=== PATIENT | female | born 1975 | race Caucasian/White ===

== ENCOUNTER → 2020-05-12 18:59 | Outpatient (BNVA) | payer MEDICAID, SELFPAY | PROVIDERS: Family Provider Family Medicine; PCP Family Medicine; Visit Provider Nurse Practitioner Family | DX: R39.9 Unspecified symptoms and signs involving the genitourinary system (principal) | CPT/HCPCS: 81000; 87086 ==

== ENCOUNTER 2020-05-22 08:16 | Outpatient (CLI) | payer MEDICAID, SELFPAY ==
--- NOTE | 2020-05-22 08:24 | CT_ITS ---
WS: [id number] CT pelvis TECHNIQUE: Contrast-enhanced CT of the pelvis with coronal and sagittal reformatted images. CLINICAL INFORMATION: pelvic mass COMPARISON: CT February 16, 2020 DLP: 686.[address] scans at [facility] use at least one of these dose optimization techniques: automat ed exposure control; mA and/or kV adjustment per patient size (includes targeted exams where dose is matched to clinical indication); or iterative reconstruction. FINDINGS: Peripheral enhancing right ovarian low-attenuation lesion measuring approximately 3.8 x 4.4 CM. This is similar in appearance to February 16, 2020. Adjacent serpiginous low-attenuation structure suspicious for hydrosalpinx or loculated fluid. This can be further evaluated with pelvic ultrasound. No inguinal lymphadenopathy. No pelvic lymphadenopathy. Appendix visualized right lower quadrant is n ormal in appearance. Normal visualized sigmoid colon. CT/CT pelvis w con* [id number] IMPRESSION: 1. Peripheral enhancing low-attenuation right ovarian cystic lesion measuring 4.4 x 3.8 cm. Recommend further evaluation with ultrasound. 2. Serpiginous adjacent low-attenuation structure suspicious for hydrosalpinx or loculated fluid. Pelvic ultrasound would be helpful in further evaluation. 3. No pelvic or inguinal lymphadenopathy. No other significant findings.
[2020-05-22] MEDS: iohexol 300 mg/mL 50 mL Btl PO (08:29)
[2020-05-22] MEDS: iohexol 300 mg/mL 100 mL Btl IV (10:02)
== END 2020-05-22 08:17 | disposition home or self-care (01) ==
LOC: RADWPI 08:22
PROVIDERS: Family Provider Family Medicine; PCP Family Medicine; Visit Provider Family Medicine
DX: R19.00 Intra-abdominal and pelvic swelling, mass and lump, unspecified site (principal); N83.9 Noninflammatory disorder of ovary, fallopian tube and broad ligament, unspecified
CPT/HCPCS: 72193; 81000; Q9967

== ENCOUNTER 2020-05-23 14:49 | Outpatient (CLI) | payer MEDICAID, SELFPAY ==
--- NOTE | 2020-05-23 15:00 | US_ITS ---
WS: [id number] TRANSVAGINAL PELVIC ULTRASOUND HISTORY: Right tubo-ovarian mass COMPARISON: 05/22/2020 Prior hysterectomy. Right ovary: 4.3 cm x 4.1 cm x 4.2 cm. In the central pelvis and extending to the RIGHT of midline is a complex cystic mass with low-level echoes. Components of this structure are tubular and suggestive of a hydrosalpinx. There is a more solid component which may be the ovary with low-level echoes. Wit hin the periphery of this more solid mass is what appears to be ovarian tissue with normal vascularit y. Left ovary: 2.4 cm x 1.6 cm x 1.6 cm. Small caliber. No abnormality. US/US transvaginal [id number] IMPRESSION: 1. Dilated tubular structure in the midline and to the RIGHT adnexa. Favor com plex hydrosalpinx. Complex cystic mass associated with the RIGHT ovary may be h emorrhagic cyst with partial involution or endometrioma. 2. Status post partial hysterectomy.
== END 2020-05-23 14:50 | disposition home or self-care (01) ==
LOC: RAD 14:53
PROVIDERS: PCP Family Medicine; Visit Provider Obstetrics & Gynecology
DX: N83.8 Other noninflammatory disorders of ovary, fallopian tube and broad ligament (principal)
CPT/HCPCS: 76830

== ENCOUNTER → 2020-06-16 09:40 | Outpatient (BNVA) | payer MEDICAID, SELFPAY | PROVIDERS: PCP Family Medicine; Visit Provider Obstetrics & Gynecology | DX: Z11.59 Encounter for screening for other viral diseases (principal); N70.11 Chronic salpingitis; N83.201 Unspecified ovarian cyst, right side | CPT/HCPCS: 87635 ==

== ENCOUNTER 2020-06-21 13:06 | Observation (INO) | payer MEDICAID, SELFPAY ==
[2020-06-19 11:00] VITALS: BMI 31.7
--- NOTE | 2020-06-19 11:19 | ANES.PREANE2 ---
Pre-Anesthetic Assessment Pre-Anesthetic Assessment: Height/Weight: Height 1.63 m Weight 83.915 kg Preop Diagnosis: Ovarian cyst Proposed Procedure: Operation Date: 06/21/20 09:05 Proposed Procedures p Laparoscopic Right Ovarian Cystectomy 70252 N83.201 N70.11(Right) - Santo Howell MD s possible Laparoscopic Salpingectomy(Right) - Santo Howell MD Familial anesthetic complications: HR in 40 after her gastric sleeve Was Beta Mari taken within 24 hours: N/A Social: Social History: No alcohol and No tobacco Exam: Pre-Anes Outpt Exam: alert, oriented x 3, clear to auscultation bilaterally and regular rate & rhythm Airway: Cervical ROM: WNL MP: 2 Dentition: Full Anesthetic Plan: ASA status: 1 Anesthesia: General Risk of > 500 ml blood loss (7ml/kg in children): No PFSH Anesthesia PFSH: Medical History Morbid obesity (~04/2020) Surgical History (Updated 06/19/20 @ 09:41 by Ivana Hawkins RN) History of abdominal hysterectomy 09/04/2016- Performed per Dr. Howell @ [facility] due to AUB and cancerous cells. History of delivery 1993-Performed in [place] History of gastric bypass History of tubal ligation 1995- Performed [place] Family History Sister Diabetes Grandmother Diabetes maternal Stroke maternal Hypertension maternal Breast cancer maternal Family/Other Colon cancer maternal aunt Stroke maternal aunts and maternal uncles Mother Hypertension Denies family history of Ovarian cancer Clotting disorder Heart disease Hyperlipidemia Anesthesia complication Bleeding disorder Uterine cancer Thyroid condition Social History (Updated 06/19/20 @ 09:31 by Ivana Hawkins, LELE) Smoking and tobacco status: never smoked Alcohol intake: former Year of sobriety/quit date alcohol: 2019 Substance/Drug Use: never Female Reproductive History: Date of last menstrual period: 04/23/17 Data Anesthesia Cardiac Studies: No Data to Display
[2020-06-21] VITALS (19 sets, daily range): BP systolic 97–122; BP diastolic 56–76; PULSE 51–88; RESP 12–18; TEMP 36.2–37.1; O2SAT 94–100
[2020-06-21 06:23] LABS: Add Urine Microscopic? NO
[2020-06-21 06:32] LABS: Bilirubin Urine 1+ (Negative); Blood Urine Neg (Negative); Glucose Urine UA Norm (Normal); Ketones Urine 1+ (Negative); Leukocyte Esterase Urine Negative (Negative); Nitrate Urine Negative (Negative); Protein Urine Neg (Negative); Urine Appearance Clear (CLEAR); Urine Color Yellow (Yellow); Urobilinogen Urine 1 mg/dL (Negative)
--- NOTE | 2020-06-21 06:41 | P.ANESUD_ITS ---
Pre-Anesthetic Update Pre-Anesthetic Assessment: Date of Surgery/Procedure: 06/21/20 Preop Shellie gnosis: right ovarian cyst and complex hydrosalpinx Proposed Procedure: Operation Date: 06/21/20 09:05 Proposed Procedures p Laparoscopic Right Ovarian Cystectomy 01167 N83.201 N70.11(Right) - Santo Howell MD s possible Laparoscopic Salpingectomy(Right) - Santo Howell MD Last Intake: Intake Last Liquid Date 06/20/20 Last Liquid Time 20:00 Last Solid Date 06/20/20 Last Solid Time 20:00 Labs Last 48hrs: Laboratory Results - last 48 hr 06/21/20 06:00 Urine Color Yellow Urine Appearance Clear Urine pH 5.0 Ur Specific Gravit y 1.030 Urine Protein Neg Urine Glucose (UA) Norm Urine Ketones 1+ H Urine Blood Neg Urine Nitrate Negative Urine Bilirubin 1+ H Urine Urobilinogen 1 H Ur Leukocyte Rula ase Negative Vitals: Temperature 97.2 F L 06/21/20 06:08 Temperature Source Temporal Artery S can 06/21/20 06:08 Pulse Rate 73 06/21/20 06:08 Respiratory Rate 18 06/21/20 06:08 Blood Pressure 121/75 06/21/20 06:08 Blood Pressure Jackie n 90 06/21/20 06:08 Pulse Oximetry 98 06/21/20 06:08 Oxygen Delivery Me thod 06/21/20 06:08 Exam: Pre-Anes Outpt Exam: alert, oriented x 3, clear to auscultation bilaterally and regular rate & rhythm Cardiac Studies: No Data to Display
[2020-06-21] MEDS: sodium chloride 0.9% 1,000 ML 30 ML IV (06:42)
[2020-06-21] MEDS: scopolamine 1.5 Patch 1 PATCH TRANSDERMA (06:43)
[2020-06-21 06:49] LABS: OR HCG Qualitative Urine Negative (Negative)
[2020-06-21 07:06] LABS: Blood Urea Nitrogen 11 mg/dL (6-20); Calcium 9.1 mg/dL (8.5-10.5); Carbon Dioxide 21 mmol/L (22-29); Chloride 107 mmol/L (98-107); Glomerular Filtration Rate 132.8 mL/min (90-130); Glucose 84 mg/dL (65-115); Osmolality Calculated 285 mOsm/kg (285-295); Sodium 138 mmol/L (136-145)
[2020-06-21 07:07] LABS: Anion Gap 14.6 (5-19); Potassium 4.6 mmol/L (3.5-5.1)
--- NOTE | 2020-06-21 07:22 | W.PM.OPSUD ---
Surgery/Procedure H&P Update DATE OF PROCEDURE: June 21, 2020 DATE H&P PERFORMED: 06/19/20 H&P UPDATE INFORMATION: I have reviewed H&P completed within last 30 days, I have examined patient prior to procedure and No changes to prior documentation PREOP DIAGNOSIS: right ovarian cyst and complex hydrosalpinx PLANNED PROCEDURE: Operation Date: 06/21/20 09:05 Proposed Procedures p Laparoscopic Right Ovarian Cystectomy 77297 N83.201 N70.11(Right) - Santo Howell MD s possible Laparoscopic Salpingectomy(Right) - Santo Howell MD
[2020-06-21 08:33] LABS: Basophils % 0.4 %; Eosinophils # 0.1 10^3/uL (0.0-0.8); Eosinophils % 1.3 %; Hematocrit 37.7 % (37.0-47.0); Lymphocytes # 1.8 10^3/uL (0.8-4.8); Lymphocytes % 33.7 %; Mean Corpuscular HGB Conc 31.8 g/dL (30.0-36.0); Mean Corpuscular Hemoglobin 30.5 pg (28.0-34.0); Mean Corpuscular Volume 95.9 fL (81-99); Mean Platelet Volume 10.3 fL (7.4-10.4); Monocytes # 0.5 10^3/uL (0.2-0.9); Monocytes % 9.2 %; Neutrophils # 2.95 10^3/uL (1.8-7.7); Neutrophils % 55.2 %; Nucleated Red Blood Cells % 0 %; Platelet Count 172 10^3/cmm (130-400); Red Blood Count 3.93 10^6/uL (4.1-5.3); White Blood Count 5.3 10^3/uL (4.0-10.0)
--- NOTE | 2020-06-21 12:34 | PM.OP ---
Operative Report Date of procedure: June 21, 2020 Pre-op Diagnosis: right ovarian cyst and complex hydrosalpinx Post-op diagnosis: same Post-op Findings: abdominal adhesions, right hydroslapinx, right ovarian cyst. Procedure Done: Laparoscopic right salpingoophorectomy. Lysis of adhesions. Specimens removed/disposition: right ovary, right ovarian cyst, and right fallopian tube Surgeon: Santo Howell MD Anesthesia: General Estimated blood loss (mL): 50 IV fluids (mL): 1,800 Urine output (mL): 150 Findings: Right complex hydrosalpinx and ovarian cyst, abdominal omental adhesions Condition: stable Disposition: PACU Brief History: 45-year-old female with pelvic pain found with a complex right ovarian cyst and hydrosalpinx. Procedure: After informed consent, the patient was taken to the operating room where general anesthesia was administered. Pre-Procedure Time-Out verifying the correct patient identity, correct procedure verified with consent, correct site and side, correct patient position, availability of correct implants and any special equipment or requirements was performed and acknowledge by the OR team. She was placed in the dorsal lithotomy position and prepped and draped in sterile fashion. The patient was examined under anesthesia and found to have a normal uterus with normal adnexa. A Ochoa catheter was placed in the bladder. A weighted speculum was placed in the vagina, and a sponge stick was placed. The speculum was removed from the vagina. The attention was brought to abdomen after changing gloves. The base of the umbilicus was grasped with an Allis clamp and with 2 towel clamp bilaterally tenting up the umbilicus an intraumbilical incision was made with a scalpel. While tenting up on the abdomen, a Verres needle with sleeve was admitted into the intra-abdominal cavity. A saline drop test was performed and noted to be within normal limits. Pneumoperitoneum was attained with 4 liters of carbon dioxide. The gas was seen to flow freely with normal resistance, so the CO2 gas was advanced to a higher setting. The abdomen was insufflated to an adequate distension. Once an adequate distention was reached, the Verres needle was removed. Then a 5 mm Optiview trocar and cannula were inserted under direct visualization without complications. Trocars were removed and the laparoscope was inserted. Inital survey showed omental adhesiosn to the anterior abdominal wall. An incision was made in left lower quadrant trocar was inserted into the abdomen under direct visualization and a 5 mm blunt probe was advanced through the second trocar sleeve, and light manipulation of bowel. Then the Enseal device was used to lyse the omental adhesions off the anterior abdominal wall. At this time, a third incision was made 3 cm above the symphysis pubis, and a 5 mm trocar was inserted into the abdomen under direct visualization without complication then the survey showed the right hydroplinx adhered to the right ovary. Examination of the pelvis revealed findings as above. At this time, the left ovary could not be identified due to bowel adhesions. Attention was turned to the right ovary which was disected with [place] forceps and the Enseal device. At this point, it was dissected initially using hydrodissection and using blunt dissection. The Ovarian cyst ruptured and suction was used to drain fluid at this time from the cyst. However, with suction, a large globular piece of cyst was obtained that appeared to be coagulated blood that appeared to be consistent with an endometrioma. At this time, the cyst wall was identified and was removed using blunt dissection with countertraction. The ovarian bed was then irrigated and dried. There was slight oozing noted near the edge of the ovary, obtained hemostasis using electrocautery. The right ovary was grasped with Enseal device clamped, sealed and cut the ovary was removeda as well the hydrosalpinx. The pelvis was then irrigated, and once hemostasis was assured. At this time, the pelvis was again copiously irrigated and dried. Hemostasis was assured. A Seprafilm was applied to the right ovarian fosa/bed for adhesion prevention. At this time, all instruments were removed under visualization. The umbilical incision was closed using 2 interrupted stitches of 2-0 Vicryl sutures and the skin was closed using interrupted stitches of 3-0 Vicryl suture. Exofin adhesive was placed after closure with 3-0 suture in the lateral ports. All instruments were removed. The instruments were removed from the vagina, and excellent hemostasis was noted. The patient tolerated the procedure well, and sponge, lap and needle count were correct times two. The patient taken to the recovery room in good condition.
[2020-06-21] MEDS: fentaNYL 50 mcg/mL INJ 2mL IVP ×2 (12:53→12:58)
[2020-06-21] MEDS: ondansetron 2 mg/ML SDV 2 mL 4 MG IVP (12:54)
[2020-06-21] MEDS: dextrose 5%-lactated ringers 1,000 ML 125 ML IV ×2 (14:01→21:44)
[2020-06-21] MEDS: HYDROcodone-acetaminophen 5-325 mg Tablet PO (17:47)
[2020-06-21] MEDS: docusate sodium 100 mg Capsule PO (17:49)
[2020-06-22] MEDS: HYDROcodone-acetaminophen 5-325 mg Tablet PO ×2 (01:47→08:39)
--- NOTE | 2020-06-22 06:02 | PC.NURSE ---
AT APPROXIMATELY 0520, PATIENT AMBULATED IN [place] FOR ROUGHLY FIVE MINUTES FOR THE SECOND TIME DURING SHIFT. PT AMBULATED INDEPENDENTLY WITH NO ISSUES.
[2020-06-22 06:17] LABS: Hematocrit 35.9 % (37.0-47.0); Hemoglobin 11.6 g/dL (11.5-15.3); Mean Corpuscular HGB Conc 32.3 g/dL (30.0-36.0); Mean Corpuscular Hemoglobin 30.8 pg (28.0-34.0); Mean Corpuscular Volume 95.2 fL (81-99); Mean Platelet Volume 11.7 fL (7.4-10.4); Platelet Count 180 10^3/cmm (130-400); Red Blood Count 3.77 10^6/uL (4.1-5.3); Red Cell Distribution Width 13.1 % (12.1-15.1); White Blood Count 9.3 10^3/uL (4.0-10.0)
--- NOTE | 2020-06-22 08:23 | ANE.PACU2 ---
Inpatient post-anesthesia follow up: Airway intact: Yes Vital signs: Temperature 98.7 F Pulse Rate 62 Respiratory Rate 15 Blood Pressure 99/63 Pulse Oximetry 97 Oxygen Delivery Me thod Room Air Oxygen Flow Rate 8 Fraction of Inspir ed Oxygen Hydration adequate: Yes Nausea and vomiting: No Pain level: 3 Mental status: Baseline
--- NOTE | 2020-06-22 08:32 | P.DS_ITS ---
Discharge Providers STORE GROUP MANAGER Date of Admission: 06/21/20 13:06 Date of Discharge: 07/05/20 Attending Provider at Admission: Santo Howell MD Attending Provider at Discharge: Santo Howell MD Primary Care Provider: Damion Mckeon MD Reason for Visit Reason for Visit: Laparoscopic right cystectomy/possible right salpi Hospital Course Hospital Course 45-year-old female admitted for laparoscopic ovarian cystectomy and salpingectomy due to hydrosalpinx complex ovarian cyst. A right salpingo- oophorectomy was performed without complications. Postop overnight observation was uneventful she is afebrile hemodynamically stable. tolerating diet well. Ambulating without difficulty Physical Exam Narrative: EXAM NARRATIVE: GA: Alert and oriented ?3. HEENT: WNL. Heart: Regular rate and rhythm. Lungs: Clear to auscultation bilaterally. Abdomen: Bowel sounds present, nontender, minimal tenderness, incision clean and dry, no redness, pain or edema. 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 Extremities: No edema, no cyanosis, no calves pain. Urinary Catheter Management^: Ochoa: Cath Placed During This Visit: yes, but has since been removed by the nurse Reason for Continuing Indwelling Catheter: Required Immobilization for Trauma or Surgery or Anesthesia Urinary Catheter Date of Insertion: 06/21/20 Urinary Catheter Time of Insertion: 10:50 Date Urinary Catheter Removed: 06/22/20 Time Urinary Catheter Discontinued: 05:15 Discharge Data Data Completed and Pending: Pending at discharge Category Date Time Status Pathology: Surgic al [PTH] Routine Pth 06/21/20 12:35 Received Labs from last 24 hours 06/22/20 06/21/20 05:40 08:30 WBC 9.3 5.3 RBC 3.77 L 3.93 L Hgb 11.6 12.0 Hct 35.9 L 37.7 MCV 95.2 95.9 MCH 30.8 30.5 MCHC 32.3 31.8 RDW 13.1 13.0 Plt Count 180 172 MPV 11.7 H 10.3 Neut % (Auto) 55.2 Lymph % (Auto) 33.7 [place] % (Auto) 9.2 Eos % (Auto) 1.3 Baso % (Auto) 0.4 Neut # (Auto) 2.95 Lymph # (Auto) 1.8 [place] # (Auto) 0.5 Eos # (Auto) 0.1 Baso # (Auto) 0.0 Nucleated RBC % (a uto) 0 Nucleated RBCs # 0.0 Vitals: Last Vital Signs Temp 98.7 F 06/21/20 21:59 Pulse 62 06/21/20 21:59 Resp 15 06/21/20 21:59 BP 99/63 06/21/20 21:59 Pulse Ox 97 06/21/20 21:59 Discharge Plan Discharge Patient Disposition: Home Condition: Stable Prescriptions: New acetaminophen 325 mg capsule 325 mg PO Q4H PRN (Reason: fever or pain) Qty: 60 RF: 0 promethazine 12.5 mg tablet 12.5 mg PO TID PRN (Reason: nausea and vomiting) Qty: 30 RF: 0 Continued biotin 5,000 mcg tablet, sublingual 5,000 mcg sublingual DAILY RF: 0 diphenhydramine HCl [Benadryl] 25 mg capsule 25 mg PO Q6H PRN (Reason: Congestion) RF: 0 Discharge Orders: Discharge Order (Routine); Ordered 06/22/20 Ordered By: Santo Howell Referrals: Santo Howell MD [Physician] - 07/04/20 10:45 am (* Your 2 week incison check is with Dr. Howell on 07/04/2020 at 10:45 * Your 6 week follow up appointment with Dr. Howell is on 08/01/2020 at 10:15am) Discharge Diet: Regular Discharge Activity: Increase activity as tolerated Patient Instructions: Laparoscopic Cystectomy with Ileal Conduit (DC), OB Abdominal Surgery - [facility], OB Discharge Report, OB Food/Drug Interaction Guide Activity Restrictions/Additional Instructions: 1. Please call [facility] on next working day to make your post-operative appointment in 2 weeks. 2. Please stay home until you come back to the clinic on first post-operative check up. 3. Please follow instructions on your medications CAREFULLY. 4. If you have abdominal incision, do not cover it unless dressing is necessary because of drainage. OK to shower, but avoid bath. Leave steri-strips until they fall off. If they are still on one week after surgery, you may remove them. 5. If you had vaginal surgery, your doctor may instruct you to take SITZ bath. 6. Yellow, blood tinged odorous vaginal discharge is usually normal after hysterectomy or vaginal surgeries. 7. No sexual intercourse, tampons, or douches until you are completely released from the post-operative care or 6 weeks. 8. Avoid constipation by eating right and maybe using some Metamucil or Milk of Magnesia. 9. All prescription refills are given during the working hours. Please do no wait till it runs out. Call the clinic at [phone] before your medication runs out. The clinic will get in touch with your doctor to prescribe medications if necessary. 10. Please remain within 40 mile radius from our hospital because emergencies do happen now and then during the post-operative period. 11. If you have stairs at home, take one step at a time slowly and minimize the number of trips. It helps to stay in one floor for the next few days. No lifting except what you can lift by one hand until you are released from the post-operative care. 12. Driving is discouraged until you are well healed. It may be 3-4 weeks before you feel strong enough to drive. You should be able to turn and look through the rear window without pain and you should be able to push the brake pedal very hard without pain before you drive. No fast rules, but SAFETY should be your primary concern. DO NOT drive if you are on sedating medications such as narcotics. 13. Call the clinic (during working hours) to make urgent appointment or go to the Emergency room, if any of the following occurs: i. Vaginal bleeding becomes heavy, more than a period. ii. Incision becomes red and sore, or drains pus. iii. Your temperature is over 100.4 or you have chill. iv. IV site becomes red and swollen (a little ``knot?? is usually OK) v. Persistent nausea and vomiting vi. Persistent constipation or diarrhea vii. Rash or allergic reaction to medications. Discharge Attestations STORE GROUP MANAGER Time Spent in Discharge Care*: greater than 30 min Coding Level of Care Code Acute Alterations Manager for Lucille De León
[2020-06-22] MEDS: docusate sodium 100 mg Capsule PO (08:39)
[2020-06-22 09:19] VITALS: BP 115/76; PULSE 65; RESP 16; TEMP 37; O2SAT 99
[2020-06-22 09:28] VITALS: BP 115/76; PULSE 65; RESP 16; TEMP 37; O2SAT 99
== END 2020-06-22 09:28 | disposition home or self-care (01) ==
LOC: OBGYN 13:07
PROVIDERS: Admitting Provider Obstetrics & Gynecology; PCP Family Medicine; Visit Provider Obstetrics & Gynecology
PROC: (CPT 58662; principal; 2020-06-21 09:05)
PROC: (CPT 58661; 2020-06-21 09:05)
DX: N83.201 Unspecified ovarian cyst, right side (principal); N70.11 Chronic salpingitis; N80.1 Endometriosis of ovary; Z87.891 Personal history of nicotine dependence
CPT/HCPCS: 58661; 12345; 36415; 80048; 81003; 81025; 84703; 85025; 85027; 86850; 86900; 88305; 96361; 96365; G0378; J0131; J0690; J1100; J2405; J2704; J2710; J2765; J3010; J3490; J7030

== ENCOUNTER 2020-08-24 09:19 | Outpatient (CLI) | payer MEDICAID, SELFPAY ==
--- NOTE | 2020-08-24 09:32 | US_ITS ---
WS: [id number] ULTRASOUND ABDOMEN CLINICAL INFORMATION: GALLBLADDER DISEASE,UNSPECIFIED COMPARISON: None. FINDINGS: Liver Size: Normal. Craniocaudal length: 14.1 cm. Echogenicity: Normal. Surface nodularity: None. Mass (size and location): None. Bile ducts Intrahepatic ducts: Normal. Common bile duct diameter: 0.5 cm. Gallbladder Cholelithiasis and sludge Gallstones: Present Gallbladder sludge: Present Gallbladder wall thickening: None. Pericholecystic fluid: None. Sonographic Bettencourt sign: Absent. Pancreas Normal as visualized. Spleen Splenomegaly: None. Craniocaudal length: 9.7 cm. Right kidney: Normal. Hydronephrosis: None. Size: 9.3 cm x 4.7 cm x 5.0 cm Left kidney: Normal. Hydronephrosis: None. Size: 10.3 cm x 4.9 cm x 4.5 cm. Abdominal aorta and IVC Visualized portions are normal. Ascites: None. US/US abdomen complete* [id number] IMPRESSION: Cholelithiasis and sludge in the gallbladder. Ultrasound otherwise unremarkable .
== END 2020-08-24 09:20 | disposition home or self-care (01) ==
LOC: RAD 09:21
PROVIDERS: PCP Family Medicine; Visit Provider Obstetrics & Gynecology
DX: K82.9 Disease of gallbladder, unspecified (principal); K80.20 Calculus of gallbladder without cholecystitis without obstruction
CPT/HCPCS: 76700

== ENCOUNTER 2020-09-03 19:08 | Emergency (ER) | payer MEDICAID, SELFPAY ==
[2020-09-03 19:20] VITALS: BP 130/88; PULSE 87; RESP 14; TEMP 36.4; O2SAT 99; BMI 28.0
--- NOTE | 2020-09-03 19:29 | ECG_ITS ---
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
[2020-09-03] MEDS: ondansetron 2 mg/ML SDV 2 mL 4 MG IVP (19:40)
[2020-09-03 19:41] VITALS: RESP 18; O2SAT 98
[2020-09-03 19:41] LABS: Basophils % 0.5 %; Eosinophils # 0.1 10^3/uL (0.0-0.8); Eosinophils % 1.6 %; Hematocrit 42.9 % (37.0-47.0); Hemoglobin 13.7 g/dL (11.5-15.3); Lymphocytes # 2.4 10^3/uL (0.8-4.8); Lymphocytes % 31.1 %; Mean Corpuscular HGB Conc 31.9 g/dL (30.0-36.0); Mean Corpuscular Hemoglobin 30.5 pg (28.0-34.0); Mean Corpuscular Volume 95.5 fL (81-99); Mean Platelet Volume 9.9 fL (7.4-10.4); Monocytes # 0.6 10^3/uL (0.2-0.9); Monocytes % 7.4 %; Neutrophils # 4.57 10^3/uL (1.8-7.7); Nucleated Red Blood Cells % 0 %; Platelet Count 231 10^3/cmm (130-400); Red Blood Count 4.49 10^6/uL (4.1-5.3); Red Cell Distribution Width 12.3 % (12.1-15.1); White Blood Count 7.7 10^3/uL (4.0-10.0)
[2020-09-03] MEDS: morphine 4 mg/mL SDV 1 mL IVP (19:41)
--- NOTE | 2020-09-03 19:42 | CTR_ITS ---
PROCEDURE INFORMATION: Exam: CT Abdomen And Pelvis With Contrast Exam date and time: 09/03/2020 8:27 PM Age: 45 years old Clinical indication: Abdominal pain; Prior surgery; Surgery date: 6+ months; Surgery type: Hyst, ooph, gastric bypass; Patient HX: C/O epigastric/cp w known gb issues; Additional info: Abd pain TECHNIQUE: Imaging protocol: Computed tomography of the abdomen and pelvis with contrast. Total images: 230 Radiation optimization: All CT scans at this facility use at least one of these dose optimization techniques: automated exposure control; mA and/or kV adjustment per patient size (includes targeted exams where dose is matched to clinical indication); or iterative reconstruction. Contrast material: OMNI 300; Contrast volume: 95 ml; Contrast route: INTRAVENOUS (IV); COMPARISON: 1. CT pelvis w con* [id number] 05/22/2020 9:[address] abdomen pelvis w con* [id number] 03/31/2014 11:37:35 PM RADIATION DOSE METRICS: Total DLP (mGy-cm): 824.88 FINDINGS: Lungs: Limited assessment of the lung bases fails to reveal evidence for active cardiopulmonary process. Liver: No visible hepatic mass or cystic structure. Minimal right hepatic lobe intrahepatic biliary ectasia. No visible choledocholithiasis. Gallbladder and bile ducts: Gallbladder without cholelithiasis. No visible gallbladder wall thickening or pericholecystic fluid. Common bile duct non ectatic. No visible choledocholithiasis. Pancreas: Pancreas unremarkable. No visible pancreatic ductal ectasia. Spleen: Spleen unremarkable. Adrenal glands: Adrenal glands unremarkable. Kidneys and ureters: No hydronephrosis or perinephric fluid. No visible nephrolithiasis or ureterolithiasis. Stomach and bowel: Status post gastroplasty. Assessment of the hollow viscus fails to reveal evidence of active or acute pathology. Nonobstructed bowel pattern. No visible acute diverticulitis. No visible adynamic or reactive ileus. Appendix: The appendix is visualized and appears noninflamed. Intraperitoneal space: No visible evidence of mesenteric lymphadenitis or active mesenteritis/panniculitis. No visible pneumoperitoneum. No visible intraperitoneal ascites. Vasculature: The abdominal aorta is nonaneurysmal. Lymph nodes: No current visible evidence of active mesenteric or retroperitoneal lymphadenopathy. Urinary bladder: Urinary bladder unremarkable. Reproductive: Status post hysterectomy. Bones/joints: No visible active or acute osseous pathology. Soft tissues: Unremarkable. CT/CT abdomen pelvis w con* [id number] IMPRESSION: 1. Currently no visible evidence of acute abdominal or pelvic pathologic process. 2. Minimal right hepatic lobe intrahepatic biliary ectasia with no visible choledocholithiasis. Clinical significance indeterminate. Radiation Dose CTDIVOL = (mGy): DLP = 824.88 (mGy-cm)
[2020-09-03] MEDS: lidocaine 2% viscous 15 ML, aluminum-mag hydrox-simethicon 30 ML, sucralfate oral liq 1 GM PO (19:57)
[2020-09-03 19:58] LABS: Alanine Aminotransferase 16 U/L (0-33); Alkaline Phosphatase 96 IU/L (35-105); Anion Gap 13.4 (5-19); Aspartate Amino Transferase 19 U/L (0-32); Blood Urea Nitrogen 12 mg/dL (6-20); Calcium 9.1 mg/dL (8.5-10.5); Carbon Dioxide 23 mmol/L (22-29); Chloride 106 mmol/L (98-107); Creatinine Clr Calc Pharmacy 149.0357; Globulin 2.7 g/dL (1.3-4.6); Glomerular Filtration Rate 132.8 mL/min (90-130); Glucose 127 mg/dL (65-115); Lipase 50 U/L (13-60); Osmolality Calculated 287 mOsm/kg (285-295); Potassium 4.4 mmol/L (3.5-5.1); Sodium 138 mmol/L (136-145); Total Bilirubin 0.3 mg/dL (0.15-1.2); Total Protein 6.7 g/dL (6.6-8.7)
[2020-09-03 19:59] LABS: Troponin(5th) Baseline 6 ng/L (0-10)
[2020-09-03 20:07] VITALS: BP 119/71; PULSE 72; RESP 18; O2SAT 97
[2020-09-03] MEDS: iohexol 300 mg/mL 100 mL Btl IV (20:44)
[2020-09-03 21:22] VITALS: BP 119/71; PULSE 63; RESP 18; O2SAT 96
--- NOTE | 2020-09-03 21:29 | ECG_ITS ---
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
[2020-09-03 21:33] LABS: Add Urine Microscopic? NO
[2020-09-03 21:43] LABS: Troponin 5 2HR Delta 0 ABS# (0-10)
--- NOTE | 2020-09-03 21:46 | ED_ITS ---
HPI - Chest Pain General: Chief Complaint: Chest Pain Stated Complaint: GALL BLADDER ATTACK Time Seen by Provider: 09/03/20 19:26 History of Present Illness: MD complaint: chest pain Pertinent past history: other Onset (ago): hour(s) Timing of current episode: constant Prior episodes: Yes Onset: during rest Pain location: right chest, epigastric and other (RUQ) Pain radiation: none Severity: moderate Quality: aching and dull Associated symptoms: Reports abdominal pain, nausea and vomiting; Deny dyspnea, fever(s), leg edema or palpitations Review of Systems Const: Denies: fever(s) or chills Eyes: Denies: change in vision ENMT: Denies: odynophagia, change in hearing or sinus pain Card: Reports: chest pain; Denies: palpitations, irregular heart rhythm or edema Resp: Denies: dyspnea GI: Reports: abdominal pain, nausea and vomiting : Denies: dysuria or hematuria Musc: Denies: neck pain or joint warmth Skin/Breast: Denies: rash or erythema Neuro: Denies: headache(s), dizziness or vertigo Psych: Denies: anxiety PFSH ED PFSH: Medical History Aftercare following surgery of the genitourinary system Morbid obesity (~04/2020) Surgical History History of abdominal hysterectomy 09/04/2016- Performed per Dr. Howell @ [facility] due to AUB and cancerous cells. History of delivery 1993-[place]formed in [place] History of gastric bypass History of right salpingo-oophorectomy laparoscopic right ovarian cystectomy and right salpingectomy- oophorectomy performed by Dr. Howell on 06/21/2020 at [facility] History of tubal ligation 1995- Performed in [place] Family History Sister Diabetes Grandmother Diabetes maternal Stroke maternal Hypertension maternal Breast cancer maternal Family/Other Colon cancer maternal aunt Stroke maternal aunts and maternal uncles Mother Hypertension Denies family history of Ovarian cancer Clotting disorder Heart disease Hyperlipidemia Anesthesia complication Bleeding disorder Uterine cancer Thyroid condition Social History (Updated 08/29/20 @ 08:29 by Ivana Hawkins RN) Smoking and tobacco status: never smoked Alcohol intake: former Year of sobriety/quit date alcohol: 2019 Female Reproductive History: Date of last menstrual period: 04/23/17 Physical Exam Const: GENERAL APPEARANCE: well developed ORIENTATION/CONSCIOUSNESS: Yes oriented to person, Yes oriented to place and Yes oriented to time HENMT: COMMON NORMALS: normocephalic, external ears normal and Normal external nose present HEAD & SCALP: normocephalic FACE & SINUS: normal facial exam NOSE: Normal external nose present and No nasal discharge present EXTERNAL EAR: Yes external ears normal THROAT: posterior oropharynx normal; no peritonsillar mass Eye: COMMON NORMALS: Equal, round and reactive pupils present, EOMs intact bilaterally and conjunctivae normal EYELID: eyelids normal CONJUNCTIVA: Yes conjunctivae normal PUPIL: Yes Equal, round and reactive pupils present Neck/C-Spine: GENERAL: No tracheal deviation Chest: COMMONS NORMALS: normal inspection of the chest CHEST: No tenderness Resp: COMMON NORMALS: clear to auscultation bilaterally EFFORT & I NSPECTION: No tachypneic, No respiratory distress, No retractions, No uses accessory muscles and No tracheal deviation AUSCULTATION: clear to auscultation bilaterally, no rhonchi, no wheezes and lung sounds not diminished Cardio: COMMON NORMALS: regular rate and regular rhythm RATE: regular rate RHYTHM: regular rhythm HEART SOUNDS: no murmurs PERIPHERAL PULSES: radial pulses present GI: COMMON NORMALS: Soft to palpation INSPECTION: No abdominal distension AUSCULTATION: No Hyperactive bowel sounds present and No Hypoactive bowel sounds present PALPATION: Yes Soft to palpation, Yes Tenderness to palpation present (GI) (epigastric) Details: RUQ, No Guarding due to palpation present (GI) and No Rigid due to palpation PERCUSSION: no dullness to percussion and no tympanic to percussion Neuro: SENSORIUM/ORIENTATION: Yes oriented to person, Yes oriented to place and Yes oriented to time Psych: COMMON NORMALS: mental status grossly normal Skin: COMMON NORMALS: no rashes or lesions noted GENERAL SKIN EXAM: no rashes or lesions noted Course Vital Signs: Vital signs: Vital Signs Temperature 97.6 F 09/03/20 19:20 Pulse Rate 63 09/03/20 21:22 Respiratory Rate 16 09/03/20 21:57 Blood Pressure 119/71 09/03/20 21:22 Pulse Oximetry 98 09/03/20 21:57 MDM - Chest Pain MDM Narrative: Medical decision making narrative: 45-year-old female with epigastric and right upper quadrant pain. She has a history of gallstones by ultrasound. There is no wall thickening or pericholecystic fluid on that ultrasound which was recent. Same findings on CT today. Symptoms improved after GI cocktail. This may be more of a gastritis. We will treat her as such. She notes that promethazine helps her nausea more at night than Zofran has. She has an appointment with surgery on Friday. Further work-up there. Lab Data: Attestation: I reviewed the patient's lab results. Labs: Lab Results 09/03/20 09/03/20 09/03/20 Range/Units 19:35 19:35 19:35 WBC 7.7 (4.0-10.0) 10^3/ uL RBC 4.49 (4.1-5.3) 10^6/u L Hgb 13.7 (11.5-15.3) g/dL Hct 42.9 (37.0-47.0) % MCV 95.5 (81-99) fL MCH 30.5 (28.0-34.0) pg MCHC 31.9 (30.0-36.0) g/dL RDW 12.3 (12.1-15.1) % Plt Count 231 (130-400) 10^3/c mm MPV 9.9 (7.4-10.4) fL Neut % (Auto) 59.0 % Lymph % (Auto) 31.1 % [place] % (Auto) 7.4 % Eos % (Auto) 1.6 % Baso % (Auto) 0.5 % Neut # (Auto) 4.57 (1.8-7.7) 10^3/u L Lymph # (Auto) 2.4 (0.8-4.8) 10^3/u L [place] # (Auto) 0.6 (0.2-0.9) 10^3/u L Eos # (Auto) 0.1 (0.0-0.8) 10^3/u L Baso # (Auto) 0.0 (0.0-0.1) 10^3/u L Nucleated RBC % (a uto) 0 % Nucleated RBCs # 0.0 /100WBC Sodium 138 (136-145) mmol/L Potassium 4.4 (3.5-5.1) mmol/L Chloride 106 (98-107) mmol/L Carbon Dioxide 23 (22-29) mmol/L Anion Gap 13.4 (5-19) BUN 12 (6-20) mg/dL Creatinine 0.5 (0.5-0.9) mg/dL GFR Calculation 132.8 H (90-130) mL/min Glucose 127 H (65-115) mg/dL Calculated Osmolal ity 287 (285-295) mOsm/k g Calcium 9.1 (8.5-10.5) mg/dL Total Bilirubin 0.3 (0.15-1.2) mg/dL AST 19 (0-32) U/L ALT 16 (0-33) U/L Alkaline Phosphata se 96 (35-105) IU/L Troponin T Baselin e 6 (0-10) ng/L Troponin T 120 Min cahto (0-10) ng/L Delta Troponin T (0-10) ABS# Total Protein 6.7 (6.6-8.7) g/dL Albumin 4.0 (3.5-5.2) g/dL Globulin 2.7 (1.3-4.6) g/dL Lipase 50 (13-60) U/L Urine Color (Yellow) Urine Appearance (CLEAR) Urine pH (5-7) Ur Specific Gravit y (1.005-1.030) Urine Protein (Negative) Urine Glucose (UA) (Normal) Urine Ketones (Negative) Urine Blood (Negative) Urine Nitrate (Negative) Urine Bilirubin (Negative) Urine Urobilinogen (Negative) mg/dL Ur Leukocyte Rula ase (Negative) 09/03/20 09/03/20 Range/Units 21:15 21:20 WBC (4.0-10.0) 10^3/ uL RBC (4.1-5.3) 10^6/u L Hgb (11.5-15.3) g/dL Hct (37.0-47.0) % MCV (81-99) fL MCH (28.0-34.0) pg MCHC (30.0-36.0) g/dL RDW (12.1-15.1) % Plt Count (130-400) 10^3/c mm MPV (7.4-10.4) fL Neut % (Auto) % Lymph % (Auto) % [place] % (Auto) % Eos % (Auto) % Baso % (Auto) % Neut # (Auto) (1.8-7.7) 10^3/u L Lymph # (Auto) (0.8-4.8) 10^3/u L [place] # (Auto) (0.2-0.9) 10^3/u L Eos # (Auto) (0.0-0.8) 10^3/u L Baso # (Auto) (0.0-0.1) 10^3/u L Nucleated RBC % (a uto) % Nucleated RBCs # /100WBC Sodium (136-145) mmol/L Potassium (3.5-5.1) mmol/L Chloride (98-107) mmol/L Carbon Dioxide (22-29) mmol/L Anion Gap (5-19) BUN (6-20) mg/dL Creatinine (0.5-0.9) mg/dL GFR Calculation (90-130) mL/min Glucose (65-115) mg/dL Calculated Osmolal ity (285-295) mOsm/k g Calcium (8.5-10.5) mg/dL Total Bilirubin (0.15-1.2) mg/dL AST (0-32) U/L ALT (0-33) U/L Alkaline Phosphata se (35-105) IU/L Troponin T Baselin e (0-10) ng/L Troponin T 120 Min cahto 6.00 (0-10) ng/L Delta Troponin T 0 (0-10) ABS# Total Protein (6.6-8.7) g/dL Albumin (3.5-5.2) g/dL Globulin (1.3-4.6) g/dL Lipase (13-60) U/L Urine Color Yellow (Yellow) Urine Appearance Clear (CLEAR) Urine pH 7 (5-7) Ur Specific Gravit y 1.005 (1.005-1.030) Urine Protein Neg (Negative) Urine Glucose (UA) Norm (Normal) Urine Ketones Negative (Negative) Urine Blood Neg (Negative) Urine Nitrate Negative (Negative) Urine Bilirubin Neg (Negative) Urine Urobilinogen 1 H (Negative) mg/dL Ur Leukocyte Rula ase Negative (Negative) Discharge Plan Discharge Patient Disposition: Home Clinical Impression: Biliary colic Gastritis Qualifiers: Gastritis type: unspecified gastritis Chronicity: acute Gastritis bleeding: without bleeding Qualified Code(s): K29.00 - Acute gastritis without bleeding Condition: Stable Prescriptions: New Prevacid 30 mg capsule,delayed release(DR/EC) 30 mg PO DAILY Qty: 30 RF: 0 Percocet 7.5-325 mg tablet 1 tab PO Q6H PRN (Reason: pain) Qty: 10 RF: 0 Carafate 1 gram tablet 1 g PO Q6H 28 Days Qty: 112 RF: 0 promethazine 25 mg tablet 25 mg PO Q6H PRN (Reason: nausea and vomiting) Qty: 20 RF: 0 No Action diphenhydramine HCl [Benadryl] 25 mg capsule 25 mg PO Q6H PRN (Reason: Congestion) RF: 0 acetaminophen 325 mg capsule 325 mg PO Q4H PRN (Reason: fever or pain) Qty: 60 RF: 0 Discharge Orders: Discharge ED (Routine); Ordered 09/03/20 Ordered By: Xiang Lima Referrals: Damion Mckeon MD [Primary Care Provider] - Patient Instructions: Gastritis (ED), Biliary Colic (ED), Abdominal Pain (ED) Activity Restrictions/Additional Instructions: Return for fever greater than 100, worsening pain despite treatment, vomiting liquids or medications, any other concerning symptoms. Keep your appointment on Friday with surgery. Coding Level of Care Code ED Equipment Hire Manager for Chg Fwd Exam Comprehensive
[2020-09-03 21:48] LABS: Bilirubin Urine Neg (Negative); Blood Urine Neg (Negative); Glucose Urine UA Norm (Normal); Ketones Urine Negative (Negative); Leukocyte Esterase Urine Negative (Negative); Nitrate Urine Negative (Negative); Protein Urine Neg (Negative); Specific Gravity, Urine 1.005 (1.005-1.030); Urine Appearance Clear (CLEAR); Urine Color Yellow (Yellow); Urobilinogen Urine 1 mg/dL (Negative); pH Urine 7 (5-7)
[2020-09-03] MEDS: promethazine 25 mg Tablet PO (21:54)
[2020-09-03] MEDS: ketorolac 30 mg/mL INJ IVP (21:55)
[2020-09-03 21:57] VITALS: RESP 16; O2SAT 98
[2020-09-03] MEDS: fentaNYL 50 mcg/mL INJ 2mL IVP (21:57)
[2020-09-03 23:08] VITALS: BP 119/71; PULSE 64; RESP 18; O2SAT 96
== END 2020-09-03 23:10 | disposition home or self-care (01) ==
PROVIDERS: Emergency Provider Emergency Medicine; PCP Family Medicine
DX: K29.00 Acute gastritis without bleeding (principal); K80.50 Calculus of bile duct without cholangitis or cholecystitis without obstruction
CPT/HCPCS: 12345; 74177; 80053; 81003; 83690; 84484; 85025; 93005; 96374; 96375; 99283; 99284; J1885; J2270; J2405; J3010; Q0169; Q9967

== ENCOUNTER → 2020-09-11 13:09 | Outpatient (BNVA) | payer MEDICAID, SELFPAY | PROVIDERS: PCP Family Medicine; Visit Provider Surgery | DX: Z01.812 Encounter for preprocedural laboratory examination (principal) | CPT/HCPCS: 87635 ==

== ENCOUNTER 2020-09-14 06:02 | Day surgery (SDC) | payer MEDICAID, SELFPAY ==
[2020-09-13 09:42] VITALS: BMI 28.7
[2020-09-14] VITALS (12 sets, daily range): BP systolic 94–121; BP diastolic 47–83; PULSE 58–91; RESP 16–21; TEMP 36.3–36.6; O2SAT 95–100
[2020-09-14] MEDS: sodium chloride 0.9% 1,000 ML 30 ML IV (06:34)
--- NOTE | 2020-09-14 06:41 | P.ANESASSM_ITS ---
Pre-Anesthetic Assessment Pre-Anesthetic Assessment: Height/Weight: Height 1.68 m Weight 80.739 kg Temp Pulse Resp BP Pulse Ox 97.9 F 81 16 121/77 97 09/14/20 06:16 09/14/20 06:16 09/14/20 06:16 09/14/20 06:16 09/14/20 06:16 Preop Diagnosis: right ovarian cyst and complex hydrosalpinx Proposed Procedure: Operation Date: 09/14/20 07:15 Proposed Procedures p Laparoscopic Cholecystectomy 37854 K80.10(Not Applicable) - Modesto Boothe MD Familial anesthetic complications: None Was Beta Mari taken within 24 hours: N/A Last intake: Intake Last Liquid Date 09/13/20 Last Liquid Time 22:00 Last Solid Date 09/13/20 Last Solid Time 22:00 Social: Social History: No alcohol and No tobacco Exam: Pre-Anes Outpt Exam: alert, oriented x 3, clear to auscultation bilaterally and regular rate & rhythm Airway: Cervical ROM: WNL MP: 1 Dentition: Full CV/HEM: Comments: HR in 40s after gastric bypass surgery GI: GI: GERD Comments: gastric bypass Anesthetic Plan: ASA status: 2 Anesthesia: General Risk of > 500 ml blood loss (7ml/kg in children): No Meds/Allergies Current Medications: Current Medications Generic Name Dose Route Start Last Admin Trade Name Freq PRN Reason Stop Dose Admin Sodium Chloride 1,000 mls @ 30 ml s/hr 09/14/20 06:15 09/14/20 06:34 Sodium Chloride 0.9% IV 09/15/20 06:14 30 mls/hr .Q24H ELIDIA Administration PFSH Anesthesia PFSH: Medical History Aftercare following surgery of the genitourinary system Morbid obesity (~04/2020) Surgical History History of abdominal hysterectomy 09/04/2016- Performed per Dr. Howell @ [facility] due to AUB and cancerous cells. History of delivery 1993-Performed in [place] 1995-[place] History of gastric bypass History of right salpingo-oophorectomy laparoscopic right ovarian cystectomy and right salpingectomy- oophorectomy performed by Dr. Howell on 06/21/2020 at [facility] History of tubal ligation 1995- Performed in [place] Family History Sister Diabetes Grandmother Diabetes maternal Stroke maternal Hypertension maternal Breast cancer maternal Family/Other Colon cancer maternal aunt Stroke maternal aunts and maternal uncles Mother Hypertension Denies family history of Ovarian cancer Clotting disorder Heart disease Hyperlipidemia Anesthesia complication Bleeding disorder Uterine cancer Thyroid condition Social History (Updated 08/29/20 @ 08:29 by Ivana Hawkins RN) Smoking and tobacco status: never smoked Alcohol intake: former Year of sobriety/quit date alcohol: 2019 Female Reproductive History: Date of last menstrual period: 04/23/17 Data Anesthesia Cardiac Studies: No Data to Display
--- NOTE | 2020-09-14 06:45 | W.PM.OPSUD ---
Surgery/Procedure H&P Update DATE OF PROCEDURE: September 14, 2020 DATE H&P PERFORMED: 09/05/20 H&P UPDATE INFORMATION: No changes to prior documentation PREOP DIAGNOSIS: Symptomatic cholelithiasis PLANNED PROCEDURE: Operation Date: 09/14/20 07:15 Proposed Procedures p Laparoscopic Cholecystectomy 60824 K80.10(Not Applicable) - Modesto Boothe MD
--- NOTE | 2020-09-14 07:57 | P.OP_ITS ---
Operative Report Date of procedure: September 14, 2020 Pre-op Diagnosis: Symptomatic cholelithiasis Post-op diagnosis: same Procedure Done: Laparoscopic cholecystectomy. Specimens removed/disposition: Gallbladder. Surgeon: Modesto Boothe Anesthesia: General Estimated blood loss (mL): 5 Complications: None. Condition: stable Disposition: PACU Procedure: The patient was brought to the Operating Room and was placed in a supine position on the Operating Room table. General endotracheal anesthesia was induced. The abdomen was prepped and draped in a sterile fashion. A small vertical incision was carried out in the inferior aspect of the umbilicus. Blunt dissection was carried out down to the fascia, which was grasped with a Ryland clamp. A stay suture of 0 Vicryl was placed on either side of the midline and the midline fascia was incised. The underlying peritoneum was opened bluntly and the Aminata port was placed directly into the peritoneal cavity and was held in place with the inflatable balloon. The peritoneal cavity was insufflated with carbon dioxide. The laparoscope was used to inspect the abdominal cavity. The patient had some light adhesions in the very inferior aspect of the right lower quadrant. No other gross abnormalities were initially noted. A 5 millimeter port was placed in the epigastrium under direct vision. Two 5-millimeter ports were placed on the right side of the abdomen under direct vision. The gallbladder was grasped and was elevated. The patient had adhesions all the way along the fundus of the gallbladder down to and involving the infundibular region. These adhesions were all taken down using blunt dissection with a minimum of cautery to maintain hemostasis. Blunt dissection and hydrodissection were carried out in the in fundibular region of the gallbladder and the cystic duct and cystic artery were identified. The gallbladder was partially removed from the liver bed using cautery and the spatula to confirm the anatomy before the structures were clipped and divided. The gallbladder was then removed from the liver bed using cautery and the spatula. A small hole was inadvertently made in the gallbladder and a small amount of bile and some very small apparent gallstones fell from the gallbladder but were quickly recovered. The remainder of the gallbladder contents were quickly suctioned out. After the gallbladder had been removed from the liver bed, the laparoscope was moved to the epigastric port and the gallbladder was removed from the peritoneal cavity through the umbilical port site after being placed in a laparoscopic bag. The stay sutures of Vicryl were tied to each other at the umbilicus, closing the defect so that it was airtight. The perihepatic spaces were irrigated with saline and the liver bed was reinspected. No ongoing problems were seen. The remaining ports were removed from the abdominal wall and the pneumoperitoneum was evacuated. All skin incisions were closed using inverted interrupted sutures of 4-0 Vicryl. Benzoin and Steri-Strips were placed over the incisions and Band-Aids followed. The patient was taken to the Recovery Area in stable condition postoperatively.
--- NOTE | 2020-09-14 08:09 | SUR.PHASEI ---
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
[2020-09-14] MEDS: fentaNYL 50 mcg/mL INJ 2mL IVP (08:13)
--- NOTE | 2020-09-14 08:21 | SUR.PHASEI ---
0813 PT MOANS AND STATES PAIN IS A 8/10 PT TEARFUL, SEE PAIN MED GIVEN PT REMAINS ON O2 VSS 0821 PT STATES PAIN IS BETTER BUT NOT GONE, PT ON RA TRIAL. VSS WARM BLANKETS TO PT X 2.
[2020-09-14] MEDS: ondansetron 2 mg/ML SDV 2 mL 4 MG IVP (08:26)
--- NOTE | 2020-09-14 08:28 | SUR.PHASEI ---
0826 PT C/O OF NAUSEA, SEE MED GIVEN PT AWAKES EASILY VSS ABD SOFT NO BLEEDING NOTED.
[2020-09-14] MEDS: HYDROcodone-acetaminophen 5-325 mg Tablet 2 TAB PO (09:03)
--- NOTE | 2020-09-14 17:17 | ANE.PACU2 ---
Inpatient post-anesthesia follow up: Airway intact: Yes Vital signs: Temperature 97.5 F Pulse Rate 76 Respiratory Rate 18 Blood Pressure 101/58 Pulse Oximetry 99 Oxygen Delivery Me thod Room Air Oxygen Flow Rate 8 Fraction of Inspir ed Oxygen Hydration adequate: Yes Nausea and vomiting: No Pain level: 2 Mental status: Baseline
== END 2020-09-14 09:50 | disposition home or self-care (01) ==
PROVIDERS: PCP Family Medicine; Visit Provider Surgery
PROC: 0FT44ZZ Resection of Gallbladder, Percutaneous Endoscopic Approach (ICD-10-PCS; CPT 47562; principal; 2020-09-14 07:15)
DX: K80.10 Calculus of gallbladder with chronic cholecystitis without obstruction (principal); Z98.84 Bariatric surgery status
CPT/HCPCS: 47562; 12345; 88304; 96365; J0690; J1100; J1885; J2405; J2704; J2710; J3010; J3490; J7030

== ENCOUNTER 2020-11-07 16:37 | Emergency (ER) | payer MEDICAID, SELFPAY ==
[2020-11-07] VITALS (7 sets, daily range): BP systolic 91–121; BP diastolic 55–86; PULSE 74–99; RESP 16–20; TEMP 37.1; O2SAT 94–100; BMI 27.4
--- NOTE | 2020-11-07 17:46 | CTR_ITS ---
PROCEDURE INFORMATION: Exam: CT Abdomen And Pelvis With Contrast Exam date and time: 11/07/2020 6:18 PM Age: 45 years old Clinical indication: Abdominal pain; Generalized; Prior surgery; Surgery type: Hole in diaphragm, hiatal hernia, , hyst, gastric bypasss, tubal; Additional info: Abdom pain, n/v/d TECHNIQUE: Imaging protocol: Computed tomography of the abdomen and pelvis with contrast. Total images: 233 Radiation optimization: All CT scans at this facility use at least one of these dose optimization techniques: automated exposure control; mA and/or kV adjustment per patient size (includes targeted exams where dose is matched to clinical indication); or iterative reconstruction. Contrast material: [id number]; Contrast volume: 95 ml; Contrast route: INTRAVENOUS (IV); COMPARISON: CT abdomen pelvis w con* [id number] 09/03/2020 8:45 PM RADIATION DOSE METRICS: Total DLP (mGy-cm): 1514.16 FINDINGS: Lungs: Limited assessment of the lung bases fails to reveal evidence for active cardiopulmonary process. Liver: No visible hepatic mass or cystic structure. Stable minimal right hepatic lobe biliary ductal ectasia post cholecystectomy. No visible common bile duct stone. Gallbladder and bile ducts: Status post cholecystectomy. Pancreas: Pancreas unremarkable. Spleen: Normal. No splenomegaly. Adrenal glands: Adrenal glands unremarkable. Kidneys and ureters: No hydronephrosis or perinephric fluid. No visible nephrolithiasis or visible ureterolithiasis. Stomach and bowel: Status post gastroplasty. Assessment of the hollow viscus fails to reveal evidence of active or acute pathology. Nonobstructed bowel pattern. No visible acute diverticulitis. No visible adynamic or reactive ileus. Appendix: The appendix is visualized and appears noninflamed. Intraperitoneal space: No visible evidence of mesenteric lymphadenitis or active mesenteritis/panniculitis. No visible pneumoperitoneum or intraperitoneal ascites. Vasculature: The abdominal aorta is nonaneurysmal. Lymph nodes: No current visible evidence of active mesenteric or retroperitoneal lymphadenopathy. Urinary bladder: Urinary bladder unremarkable. Reproductive: Status post hysterectomy. Bones/joints: No visible active or acute osseous pathology. Soft tissues: Unremarkable. CT/CT abdomen pelvis w con* [id number] IMPRESSION: Currently no visible evidence for acute abdominal or pelvic pathologic process. Radiation Dose CTDIVOL = (mGy): DLP = 1514.16 (mGy-cm)
--- NOTE | 2020-11-07 17:48 | W.ED.ABDPA2 ---
HPI - Abdominal Pain General: Chief Complaint: Abdominal Pain Stated Complaint: SEVERE ABDOMINAL PAIN, LIQUID DIAREAH, FEVERS Time Seen by Provider: 11/07/20 17:29 History of Present Illness: HPI narrative: Patient is a 45-year-old female comes to the ED with abdominal pain, nausea, vomiting, diarrhea. Patient says symptoms started this morning when she woke up. She says she has had liquid diarrhea multiple times throughout the day today. She is trying to drink some water today and immediately vomited afterwards. She reports feeling nauseous as well. She says she had a fever and chills today and took some Tylenol but vomited it back up. She also has some abdominal pain that is described as aching pain that is in the epigastric region and periumbilical region. She also reports having some pain radiating to her back. She has a history of multiple abdominal surgeries, such as cholecystectomy, gastric sleeve and hysterectomy. Denies any UTI symptoms. Associated Symptoms: Reports chills, diarrhea, fever(s), nausea and vomiting; Denies constipation, dysuria, hematochezia and hematuria Related Data: Date of Last Menstrual Period: 04/23/17 Review of Systems Const: Reports: fever(s) and chills; Denies: fatigue Eyes: Denies: change in vision or eye discomfort ENMT: Denies: throat pain, odynophagia, nasal discharge or nasal congestion Card: Denies: chest pain, palpitations, edema, swelling of feet/ankles, dyspnea on exertion or orthopnea Resp: Denies: dyspnea, productive cough or non-productive cough GI: Reports: abdominal pain, nausea, vomiting and diarrhea; Denies: constipation or hematochezia : Denies: flank pain, dysuria or hematuria Musc: Denies: neck pain, back pain or extremity swelling Skin/Breast: Denies: rash or new lesions Neuro: Denies: headache(s), numbness in extremities or weakness in extremities PFSH ED PFSH: Medical History Aftercare following surgery of the genitourinary system Morbid obesity (~04/2020) Surgical History History of abdominal hysterectomy 09/04/2016- Performed per Dr. Howell @ [facility] due to AUB and cancerous cells. History of delivery 1993-Performed in [place]formed [place] History of gastric bypass History of right salpingo-oophorectomy laparoscopic right ovarian cystectomy and right salpingectomy- oophorectomy performed by Dr. Howell on 06/21/2020 at [facility] History of tubal ligation 1995- Performed in [place] Family History Sister Diabetes Grandmother Diabetes maternal Stroke maternal Hypertension maternal Breast cancer maternal Family/Other Colon cancer maternal aunt Stroke maternal aunts and maternal uncles Mother Hypertension Denies family history of Ovarian cancer Clotting disorder Heart disease Hyperlipidemia Anesthesia complication Bleeding disorder Uterine cancer Thyroid condition Social History Smoking and tobacco status: never smoked Alcohol intake: former Year of sobriety/quit date alcohol: 2019 Female Reproductive History: Date of last menstrual period: 04/23/17 Physical Exam Const: COMMON NORMALS: patient oriented x3 and alert GENERAL APPEARANCE: cooperative, comfortable and ill appearing HENMT: COMMON NORMALS: normocephalic HEAD & SCALP: normocephalic MOUTH: Normal oral and palatal mucosa present THROAT: posterior oropharynx normal and uvula midline Eye: COMMON NORMALS: Equal, round and reactive pupils present PUPIL: Yes Equal, round and reactive pupils present Neck/C-Spine: COMMON NORMALS: supple GENERAL: Yes normal visual inspection Resp: COMMON NORMALS: normal respiratory effort, No retractions, No use of accessory muscles and clear to auscultation bilaterally AUSCULTATION: clear to auscultation bilaterally Cardio: COMMON NORMALS: regular rate, regular rhythm, S1 normal heart sound present, S2 normal heart sound present, No gallops present (Cardio), No clicks present (Cardio), No murmurs present (Cardio) and Peripheral pulses 2+ throughout RATE: regular rate RHYTHM: regular rhythm HEART SOUNDS: S1 normal heart sound present and S2 normal heart sound present PERIPHERAL PULSES: Peripheral pulses 2+ throughout GI: COMMON NORMALS: Normal to inspection, nondistended, normoactive bowel sounds present, Soft to palpation and no masses PALPATION: Yes Soft to palpation and Yes Tenderness to palpation present (GI) Details: other (Epigastric region and periumbilical region.) : COMMON NORMALS: Yes no CVA tenderness BLADDER/KIDNEY EXAM: Yes no CVA tenderness Back/Pelvis: COMMON NORMALS: no CVA tenderness Extremity: COMMON NORMALS: normal to inspection Neuro: COMMON NORMALS: patient oriented x3 SENSORIUM/ORIENTATION: Yes alert GAIT: Yes Normal gait present Skin: GENERAL SKIN EXAM: dry skin Course Reevaluation(s): Reevaluation #1: Went and talked with patient check on her and see how she is doing after getting a second liter of fluids, Reglan and morphine. Patient says that she feels a lot better and is ready to go home. I told her I am still waiting on the hepatitis panel and that lab said it will probably be another hour and a half. Patient does not want to stay and wait for labs. Patient wants to go home and says she will call lab tomorrow morning to get results. Time: 21:21 Vital Signs: Vital signs: Vital Signs Temperature 98.8 F 11/07/20 17:10 Pulse Rate 74 11/07/20 21:27 Respiratory Rate 16 11/07/20 21:27 Blood Pressure 91/55 11/07/20 21:27 Pulse Oximetry 94 11/07/20 21:27 MDM - Abdominal Pain MDM Narrative: Medical decision making narrative: Patient is a 45-year-old female comes to the ED with diarrhea, nausea, vomiting abdominal pain. Symptoms started today. Patient has some mild central abdominal tenderness. vitals are stable. Patient CBC, UA were all unremarkable. Lipase normal. AST 362 and ALT was 284 and rest of CMP was unremarkable. CT of abdomen pelvis showed no acute findings. Patient was given 2 L of IV fluids, Reglan and morphine and her symptoms greatly improved. She says she was ready to go home and rest and had no nausea or diarrhea while here in the ED. I told patient that we have hepatitis panel that is pending and I talked with lab and it was given to be another hour to 2 hours till results would come back. Patient does not want to stay and wait for lab results I would like to go home and rest. I told patient that she can call [facility] tomorrow morning to get her hepatitis panel lab results. Patient diagnosed with viral syndrome and discharged home with a prescription for Phenergan. She was told to advance diet as tolerated to drink plenty of fluids stay hydrated. Return to ED precautions given. I told patient to set up an appointment with her PCP in the next 5 to 7 days to get reevaluated. I stressed with patient she can contact the hospital tomorrow morning to get her lab results and then she can discuss those with her primary care doctor. Patient understood and agreed with plan. Lab Data: Attestation: I reviewed the patient's lab results. Labs: Lab Results 11/07/20 11/07/20 11/07/20 Range/Units 18:46 18:46 18:46 WBC 6.1 (4.0-10.0) 10^3/ uL RBC 4.69 (4.1-5.3) 10^6/u L Hgb 14.3 (11.5-15.3) g/dL Hct 43.0 (37.0-47.0) % MCV 91.7 (81-99) fL MCH 30.5 (28.0-34.0) pg MCHC 33.3 (30.0-36.0) g/dL RDW 12.7 (12.1-15.1) % Plt Count 184 (130-400) 10^3/c mm MPV 10.9 H (7.4-10.4) fL Neut % (Auto) 82.8 % Lymph % (Auto) 9.6 % Laurel % (Auto) 5.9 % Eos % (Auto) 1.2 % Baso % (Auto) 0.3 % Neut # (Auto) 5.02 (1.8-7.7) 10^3/u L Lymph # (Auto) 0.6 L (0.8-4.8) 10^3/u L Laurel # (Auto) 0.4 (0.2-0.9) 10^3/u L Eos # (Auto) 0.1 (0.0-0.8) 10^3/u L Baso # (Auto) 0.0 (0.0-0.1) 10^3/u L Nucleated RBC % (a uto) 0 % Nucleated RBCs # 0.0 /100WBC Sodium 139 (136-145) mmol/L Potassium 4.1 (3.5-5.1) mmol/L Chloride 105 (98-107) mmol/L Carbon Dioxide 23 (22-29) mmol/L Anion Gap 15.1 (5-19) BUN 12 (6-20) mg/dL Creatinine 0.6 (0.5-0.9) mg/dL GFR Calculation 107.6 (90-130) mL/min Glucose 91 (65-115) mg/dL Calculated Osmolal ity 287 (285-295) mOsm/k g Calcium 8.7 (8.5-10.5) mg/dL Total Bilirubin 1.1 (0.15-1.2) mg/dL AST 362 H (0-32) U/L ALT 284 H (0-33) U/L Alkaline Phosphata se 137 H (35-105) IU/L Total Protein 6.6 (6.6-8.7) g/dL Albumin 4.0 (3.5-5.2) g/dL Globulin 2.6 (1.3-4.6) g/dL Lipase 34 (13-60) U/L HCG, Qual Negative (Negative) Urine Color (Yellow) Urine Appearance (CLEAR) Urine pH (5-7) Ur Specific Gravit y (1.005-1.030) Urine Protein (Negative) Urine Glucose (UA) (Normal) Urine Ketones (Negative) Urine Blood (Negative) Urine Nitrate (Negative) Urine Bilirubin (Negative) Urine Urobilinogen (Negative) mg/dL Ur Leukocyte Rula ase (Negative) Urine RBC (0-2) /hpf Urine WBC (0-5) /hpf Ur Squamous Epith Cells (0-5) /hpf Amorphous Sediment Urine Bacteria (NONE) /hpf Hepatitis A IgM Ab (Nonreactive) Hep Bs Antigen (Nonreactive) Hep Bs Antibody (11.5-1000) Hep B Core Total A b (Nonreactive) Hepatitis C Antibo dy (Nonreactive) 11/07/20 11/07/20 Range/Units 18:46 20:19 WBC (4.0-10.0) 10^3/ uL RBC (4.1-5.3) 10^6/u L Hgb (11.5-15.3) g/dL Hct (37.0-47.0) % MCV (81-99) fL MCH (28.0-34.0) pg MCHC (30.0-36.0) g/dL RDW (12.1-15.1) % Plt Count (130-400) 10^3/c mm MPV (7.4-10.4) fL Neut % (Auto) % Lymph % (Auto) % Laurel % (Auto) % Eos % (Auto) % Baso % (Auto) % Neut # (Auto) (1.8-7.7) 10^3/u L Lymph # (Auto) (0.8-4.8) 10^3/u L Laurel # (Auto) (0.2-0.9) 10^3/u L Eos # (Auto) (0.0-0.8) 10^3/u L Baso # (Auto) (0.0-0.1) 10^3/u L Nucleated RBC % (a uto) % Nucleated RBCs # /100WBC Sodium (136-145) mmol/L Potassium (3.5-5.1) mmol/L Chloride (98-107) mmol/L Carbon Dioxide (22-29) mmol/L Anion Gap (5-19) BUN (6-20) mg/dL Creatinine (0.5-0.9) mg/dL GFR Calculation (90-130) mL/min Glucose (65-115) mg/dL Calculated Osmolal ity (285-295) mOsm/k g Calcium (8.5-10.5) mg/dL Total Bilirubin (0.15-1.2) mg/dL AST (0-32) U/L ALT (0-33) U/L Alkaline Phosphata se (35-105) IU/L Total Protein (6.6-8.7) g/dL Albumin (3.5-5.2) g/dL Globulin (1.3-4.6) g/dL Lipase (13-60) U/L HCG, Qual (Negative) Urine Color Yellow (Yellow) Urine Appearance Clear (CLEAR) Urine pH 5 (5-7) Ur Specific Gravit y 1.010 (1.005-1.030) Urine Protein Neg (Negative) Urine Glucose (UA) Norm (Normal) Urine Ketones 2+ H (Negative) Urine Blood Neg (Negative) Urine Nitrate Negative (Negative) Urine Bilirubin Neg (Negative) Urine Urobilinogen Norm (Negative) mg/dL Ur Leukocyte Rula ase Trace H (Negative) Urine RBC 0-4 H (0-2) /hpf Urine WBC 5-10 H (0-5) /hpf Ur Squamous Epith Cells 10-15 H (0-5) /hpf Amorphous Sediment Not Reportable Urine Bacteria 1+ H (NONE) /hpf Hepatitis A IgM Ab Non-reactive (Nonreactive) Hep Bs Antigen Non-reactive (Nonreactive) Hep Bs Antibody 3.5 L (11.5-1000) Hep B Core Total A b Non-reactive (Nonreactive) Hepatitis C Antibo dy Non-reactive (Nonreactive) Imaging Data ^: CT Abd/Pel: Attestation: I personally reviewed and interpreted this imaging study as follows: Radiologist's impression: Art [employer] [address] [address] Scan Report Signed Patient: Jojo Luo Unit #: [id number] : 1975 Age/Sex: 45 / F ADM Date: 11/07/20 Loc: ER Room/Bed: Attending Dr: Ordering Provider/Ordering MD: Ramses Farris Date of Service: 11/07/20 Procedure(s): CT abdomen pelvis w con* [id number] Accession Number(s): [id number] Report Number: [id number] PROCEDURE INFORMATION: Exam: CT Abdomen And Pelvis With Contrast Exam date and time: 11/07/2020 6:18 PM Age: 45 years old Clinical indication: Abdominal pain; Generalized; Prior surgery; Surgery type: Hole in diaphragm, hiatal hernia, , hyst, gastric bypasss, tubal; Additional info: Abdom pain, n/v/d TECHNIQUE: Imaging protocol: Computed tomography of the abdomen and pelvis with contrast. Total images: 233 Radiation optimization: All CT scans at this facility use at least one of these dose optimization techniques: automated exposure control; mA and/or kV adjustment per patient size (includes targeted exams where dose is matched to clinical indication); or iterative reconstruction. Contrast material: [id number]; Contrast volume: 95 ml; Contrast route: INTRAVENOUS (IV); COMPARISON: CT abdomen pelvis w con* [id number] 09/03/2020 8:45 PM RADIATION DOSE METRICS: Total DLP (mGy-cm): 1514.16 FINDINGS: Lungs: Limited assessment of the lung bases fails to reveal evidence for active cardiopulmonary process. Liver: No visible hepatic mass or cystic structure. Stable minimal right hepatic lobe biliary ductal ectasia post cholecystectomy. No visible common bile duct stone. Gallbladder and bile ducts: Status post cholecystectomy. Pancreas: Pancreas unremarkable. Spleen: Normal. No splenomegaly. Adrenal glands: Adrenal glands unremarkable. Kidneys and ureters: No hydronephrosis or perinephric fluid. No visible nephrolithiasis or visible ureterolithiasis. Stomach and bowel: Status post gastroplasty. Assessment of the hollow viscus fails to reveal evidence of active or acute pathology. Nonobstructed bowel pattern. No visible acute diverticulitis. No visible adynamic or reactive ileus. Appendix: The appendix is visualized and appears noninflamed. Intraperitoneal space: No visible evidence of mesenteric lymphadenitis or active mesenteritis/panniculitis. No visible pneumoperitoneum or intraperitoneal ascites. Vasculature: The abdominal aorta is nonaneurysmal. Lymph nodes: No current visible evidence of active mesenteric or retroperitoneal lymphadenopathy. Urinary bladder: Urinary bladder unremarkable. Reproductive: Status post hysterectomy. Bones/joints: No visible active or acute osseous pathology. Soft tissues: Unremarkable. CT/CT abdomen pelvis w con* [id number] IMPRESSION: Currently no visible evidence for acute abdominal or pelvic pathologic process. Radiation Dose CTDIVOL = (mGy): DLP = 1514.16 (mGy-cm) Dictated By: Robinson Esparza Signed By: Robinson Esparza Signed Date/Time: 11/07/201929 DD/ 27 Discharge Plan Discharge Patient Disposition: Home Clinical Impression: Acute viral syndrome, Elevated liver enzymes Condition: Stable Prescriptions: New promethazine 25 mg tablet 25 mg PO Q6H PRN (Reason: nausea and vomiting) Qty: 20 RF: 0 dicyclomine 20 mg tablet 20 mg PO QID Qty: 20 RF: 0 No Action acetaminophen 325 mg tablet 650 mg PO DAILY PRN (Reason: Pain) RF: 0 Imodium A-D 2 mg Tablet 2 mg PO Q4H PRN (Reason: Diarrhea) RF: 0 Discharge Orders: Discharge ED (Routine); Ordered 11/07/20 Ordered By: Ramses Farris Referrals: Damion Mckeon MD [Primary Care Provider] - Discharge Diet: Advance as tolerated and Clear Liquid Discharge Activity: Increase activity as tolerated Patient Instructions: Viral Syndrome (ED) Activity Restrictions/Additional Instructions: Follow-up with medical provider as directed. Contact your PCP tomorrow and get appointment set up sometime within the next 7 days for reevaluation. Contact [facility] tomorrow morning to find out hepatitis lab results. Drink plenty of fluids and stay hydrated. Take medications as prescribed. Take Bentyl (Dicyclomine) to help with abdominal cramping and pain. Take [id number] ibuprofen or Tylenol for fevers or pain. Return to the ER or your medical provider if condition worsens. Please read and understand discharge instructions. If any questions, please ask. Coding Level of Care Code ED Charter Coordinator for Chg Fwd Exam Comprehensive
[2020-11-07] MEDS: ondansetron 2 mg/ML SDV 2 mL 4 MG IVP (18:44)
[2020-11-07] MEDS: sodium chloride 0.9% 1,000 ML 999 ML IV ×2 (18:45→20:22)
[2020-11-07] MEDS: morphine 4 mg/mL SDV 1 mL IVP ×2 (18:50→20:21)
[2020-11-07 18:59] LABS: Basophils % 0.3 %; Eosinophils # 0.1 10^3/uL (0.0-0.8); Eosinophils % 1.2 %; Hemoglobin 14.3 g/dL (11.5-15.3); Lymphocytes # 0.6 10^3/uL (0.8-4.8); Lymphocytes % 9.6 %; Mean Corpuscular HGB Conc 33.3 g/dL (30.0-36.0); Mean Corpuscular Hemoglobin 30.5 pg (28.0-34.0); Mean Corpuscular Volume 91.7 fL (81-99); Mean Platelet Volume 10.9 fL (7.4-10.4); Monocytes # 0.4 10^3/uL (0.2-0.9); Monocytes % 5.9 %; Neutrophils # 5.02 10^3/uL (1.8-7.7); Neutrophils % 82.8 %; Nucleated Red Blood Cells % 0 %; Platelet Count 184 10^3/cmm (130-400); Red Blood Count 4.69 10^6/uL (4.1-5.3); Red Cell Distribution Width 12.7 % (12.1-15.1); White Blood Count 6.1 10^3/uL (4.0-10.0)
[2020-11-07] MEDS: iohexol 300 mg/mL 100 mL Btl IV (19:01)
[2020-11-07 19:14] LABS: HCG, Serum Qual Negative (Negative)
[2020-11-07 19:19] LABS: Alanine Aminotransferase 284 U/L (0-33); Alkaline Phosphatase 137 IU/L (35-105); Aspartate Amino Transferase 362 U/L (0-32); Blood Urea Nitrogen 12 mg/dL (6-20); Calcium 8.7 mg/dL (8.5-10.5); Carbon Dioxide 23 mmol/L (22-29); Chloride 105 mmol/L (98-107); Globulin 2.6 g/dL (1.3-4.6); Glomerular Filtration Rate 107.6 mL/min (90-130); Glucose 91 mg/dL (65-115); Lipase 34 U/L (13-60); Osmolality Calculated 287 mOsm/kg (285-295); Sodium 139 mmol/L (136-145); Total Bilirubin 1.1 mg/dL (0.15-1.2); Total Protein 6.6 g/dL (6.6-8.7)
[2020-11-07 19:26] LABS: Anion Gap 15.1 (5-19); Potassium 4.1 mmol/L (3.5-5.1)
[2020-11-07] MEDS: metoclopramide 5 mg/mL SDV 2 mL 10 MG IVP (20:20)
[2020-11-07 20:34] LABS: Bacteria Urine 1+ /hpf; Bilirubin Urine Neg (Negative); Blood Urine Neg (Negative); Glucose Urine UA Norm (Normal); Ketones Urine 2+ (Negative); Leukocyte Esterase Urine Trace (Negative); Nitrate Urine Negative (Negative); Protein Urine Neg (Negative); RBC Urine 0-4 /hpf (0-2); Urine Appearance Clear (CLEAR); Urine Color Yellow (Yellow); Urobilinogen Urine Norm (Negative); pH Urine 5 (5-7)
[2020-11-07 23:57] LABS: Hepatitis A Antibody IgM Non-Reactive (Nonreactive); Hepatitis B Core AB, Total Non-Reactive (Nonreactive); Hepatitis B Surface AB 3.5 (11.5-1000); Hepatitis B Surface Antigen Non-Reactive (Nonreactive); Hepatitis C Virus Antibody Non-Reactive (Nonreactive)
== END 2020-11-07 21:39 | disposition home or self-care (01) ==
PROVIDERS: Emergency Provider Physician Assistant; PCP Family Medicine
DX: B34.9 Viral infection, unspecified (principal); R74.8 Abnormal levels of other serum enzymes
CPT/HCPCS: 74177; 80053; 81001; 83690; 84703; 85025; 86705; 86706; 86709; 86803; 87340; 96361; 96374; 96375; 96376; 99284; J2270; J2405; J2765; J7030; Q9967

== ENCOUNTER → 2020-11-14 11:29 | Outpatient (BNVA) | payer MEDICAID, SELFPAY | PROVIDERS: PCP Family Medicine; Visit Provider Family Medicine | DX: Z98.84 Bariatric surgery status (principal); K21.9 Gastro-esophageal reflux disease without esophagitis; B34.9 Viral infection, unspecified; R74.8 Abnormal levels of other serum enzymes; Z98.890 Other specified postprocedural states | CPT/HCPCS: 80053; 82306; 82607; 82746; 83036; 83735; 84425; 85025 ==

== ENCOUNTER → 2020-12-12 13:57 | Day surgery (SDC) | payer MEDICAID, SELFPAY ==
[2020-12-12] MEDS: sodium chloride 0.9% 1,000 ML 999 ML IV ×2 (14:30→15:36)
[2020-12-12 14:32] VITALS: BP 118/92; PULSE 95; RESP 18; TEMP 36.9; O2SAT 96; BMI 28.0
== END ==
PROVIDERS: PCP Family Medicine; Visit Provider Family Medicine
DX: K52.9 Noninfective gastroenteritis and colitis, unspecified (principal)
CPT/HCPCS: 80053; 81003; 82150; 96365; J7030

== ENCOUNTER → 2020-12-13 11:41 | Day surgery (SDC) | payer MEDICAID, SELFPAY ==
[2020-12-13 12:10] LABS: Basophils % 0.2 %; Eosinophils # 0.1 10^3/uL (0.0-0.8); Eosinophils % 1.2 %; Hematocrit 38.9 % (37.0-47.0); Lymphocytes # 1.2 10^3/uL (0.8-4.8); Mean Corpuscular HGB Conc 33.4 g/dL (30.0-36.0); Mean Corpuscular Hemoglobin 30.3 pg (28.0-34.0); Mean Corpuscular Volume 90.7 fL (81-99); Mean Platelet Volume 10.2 fL (7.4-10.4); Monocytes # 0.3 10^3/uL (0.2-0.9); Monocytes % 8.1 %; Neutrophils # 2.62 10^3/uL (1.8-7.7); Neutrophils % 62.3 %; Nucleated Red Blood Cells % 0 %; Platelet Count 158 10^3/cmm (130-400); Red Blood Count 4.29 10^6/uL (4.1-5.3); Red Cell Distribution Width 12.9 % (12.1-15.1); White Blood Count 4.2 10^3/uL (4.0-10.0)
[2020-12-13] MEDS: sodium chloride 0.9% 1,000 ML 999 ML IV ×2 (12:22→13:26)
[2020-12-13 12:34] VITALS: BP 99/64; PULSE 96; RESP 18; TEMP 36.7; O2SAT 97
--- NOTE | 2020-12-13 12:36 | PC.NURSE ---
Dr. Mckeon's office notified that Phenergan IV is not administered within the hospital. Order received to dc Phenergan and just give the 2 L NS.
--- NOTE | 2020-12-13 13:19 | PC.NURSE ---
Dr. Boothe spoke with patient via phone. Pt to have stool studies collected. Hat and cup to be sent home with patient. After stool collected, pt instructed to bring specimen back to lab.
--- NOTE | 2020-12-13 14:02 | PC.NURSE ---
Pt unable to have bowel movement while in GI Lab. Specimen cup sent with patient with instructions on how to return to lab. Second liter of NS infused without difficulty. IV to left hand left in place as ordered for possible hydration 12/14/20.
[2020-12-13 14:23] LABS: Alanine Aminotransferase 26 U/L (0-33); Albumin Level 3.4 g/dL (3.5-5.2); Alkaline Phosphatase 80 IU/L (35-105); Amylase 29 U/L (28-100); Anion Gap 11.3 (5-19); Aspartate Amino Transferase 23 U/L (0-32); Blood Urea Nitrogen 6 mg/dL (6-20); Calcium 7.7 mg/dL (8.5-10.5); Carbon Dioxide 21 mmol/L (22-29); Chloride 112 mmol/L (98-107); Globulin 2.3 g/dL (1.3-4.6); Glomerular Filtration Rate 171.8 mL/min (90-130); Glucose 75 mg/dL (65-115); Lipase 29 U/L (13-60); Osmolality Calculated 288 mOsm/kg (285-295); Potassium 3.3 mmol/L (3.5-5.1); Sodium 141 mmol/L (136-145); Total Bilirubin 0.3 mg/dL (0.15-1.2); Total Protein 5.7 g/dL (6.6-8.7)
== END ==
PROVIDERS: PCP Family Medicine; Visit Provider Family Medicine
DX: K52.9 Noninfective gastroenteritis and colitis, unspecified (principal); E86.0 Dehydration
CPT/HCPCS: 36415; 80053; 82150; 83690; 85025; 96360; 96361; J7030

== ENCOUNTER 2020-12-13 17:31 | Outpatient (CLI) | payer MEDICAID, SELFPAY | END 2020-12-13 17:32 | disposition home or self-care (01) | LOC: LAB 17:40 | PROVIDERS: PCP Family Medicine; Visit Provider Family Medicine | DX: R19.7 Diarrhea, unspecified (principal) | CPT/HCPCS: 87506 ==

== ENCOUNTER 2021-04-26 16:14 | Emergency (ER) | payer MEDICAID, SELFPAY ==
[2021-04-26 16:54] VITALS: BP 131/85; PULSE 80; RESP 18; TEMP 36.9; O2SAT 100; BMI 28.0
--- NOTE | 2021-04-26 19:21 | PC.NURSE ---
assumed care of this patient at this time.
[2021-04-26 19:24] VITALS: BP 148/92; PULSE 75; RESP 18; TEMP 36.6; O2SAT 100
--- NOTE | 2021-04-26 19:54 | W.ED.GENADLT ---
HPI - General Adult General: Chief complaint: General Medical Stated complaint: R. SIDE NUMBNESS/R. SIDE ARM PAIN Time Seen by Provider: 04/26/21 19:37 History of Present Illness: HPI narrative: Patient is a 45-year-old female past medical history of gastric sleeve chronic nausea. She is here with complaints of left-sided posterior leg pain. Is been going on for 2 days. She also has a sensation of heaviness in her right arm. She has not had any numbness or tingling in her face no drooping of her face no difficulty speaking altered mental status no vision changes. She was told by her primary care provider to come for evaluation. Pain is moderate is worse when she lies on her side her back is better when she takes weight off of her left leg. Has been taking Tylenol little improvement Denies fevers chills chest pain nausea vomiting diarrhea altered mental status or syncope Review of Systems General: Reports: 10 or more systems reviewed and unremarkable except in HPI and below PFSH ED PFSH: Medical History Aftercare following surgery of the genitourinary system Morbid obesity (~04/2020) Surgical History History of abdominal hysterectomy 09/04/2016- Performed per Dr. Howell @ [facility] due to AUB and cancerous cells. History of delivery 1993-Performed in [place] 1995-[place] History of gastric bypass History of right salpingo-oophorectomy laparoscopic right ovarian cystectomy and right salpingectomy- oophorectomy performed by Dr. Howell on 06/21/2020 at [facility] History of surgery for acute abdominal pain History of tubal ligation 1995- Performed in [place], [place] Family History Sister Diabetes Grandmother Diabetes maternal Stroke maternal Hypertension maternal Breast cancer maternal Family/Other Colon cancer maternal aunt Stroke maternal aunts and maternal uncles Mother Hypertension Denies family history of Ovarian cancer Clotting disorder Heart disease Hyperlipidemia Anesthesia complication Bleeding disorder Uterine cancer Thyroid condition Social History Smoking and tobacco status: never smoked Alcohol intake: former Year of sobriety/quit date alcohol: 2019 Female Reproductive History: Date of last menstrual period: 04/23/17 Physical Exam Const: COMMON NORMALS: no acute distress, average body habitus, patient oriented x3, no limitations, healthy appearing, alert and well nourished HENMT: COMMON NORMALS: normocephalic and atraumatic HEAD & SCALP: normocephalic and atraumatic Eye: COMMON NORMALS: Equal, round and reactive pupils present, EOMs intact bilaterally and conjunctivae normal CONJUNCTIVA: Yes conjunctivae normal PUPIL: Yes Equal, round and reactive pupils present Resp: COMMON NORMALS: normal respiratory effort, No use of accessory muscles and clear to auscultation bilaterally AUSCULTATION: clear to auscultation bilaterally Cardio: COMMON NORMALS: regular rate, regular rhythm and No murmurs present (Cardio) RATE: regular rate RHYTHM: regular rhythm : COMMON NORMALS: Yes no CVA tenderness BLADDER/KIDNEY EXAM: Yes no CVA tenderness Back/Pelvis: COMMON NORMALS: no CVA tenderness, thoracic and lumbar spine normal to inspection, no thoracic nor lumbar tenderness and straight leg raise negative bilaterally Extremity: COMMON NORMALS: normal to inspection, full ROM, capillary refill normal and no joint enlargement Neuro: COMMON NORMALS: patient oriented x3 SENSORIUM/ORIENTATION: Yes alert GAIT: Yes Normal gait present SENSORY EXAM: Yes extremities and Normal double simultaneous stimulation for sensation OTHER: Equal strength and sensation bilateral lower extremities as well as upper extremities. Cranial nerves II through XII normal as tested. Straight leg raise Course ED course: Patient CT was negative. Reexamination of her cranial nerves was negative. We were unable to get blood from her a long conversation with her stated that really did not think that there is anything on the labs that I would give me a substantial amount of concern or change my work-up on her her plan. Think the etiology is fairly benign she does have some symptoms of sciatica as far as her upper extremity she does not have any neurological findings she does have some mild signs of possible carpal tunnel syndrome so this may be what is causing her heaviness and numbness in her arm. Could also be vitamin deficiency after her gastric sleeve. Did discuss that worse case scenario would be something like multiple sclerosis but this is a fairly atypical presentation for that this could be worked up as an outpatient continues to have issues. She did agree for no more blood testing and wished to be discharged I think this is appropriate. We will give her a dose of prednisone here and then have her take a Dosepak at home and have her follow-up with her PCP Vital Signs: Vital signs: Vital Signs Temperature 98.1 F 04/26/21 21:18 Pulse Rate 72 04/26/21 21:18 Respiratory Rate 16 04/26/21 21:18 Blood Pressure 132/75 04/26/21 21:18 Pulse Oximetry 100 04/26/21 21:18 MDM - General Adult MDM Narrative: Medical decision making narrative: Patient does not have any strokelike symptoms. Has some mild sciatica and positive Phalen sign in her right wrist. We will going to get a CT of her head just with her concerns were PCP in her right-sided numbness. CBC CMP as well. Differential Diagnosis: Differential Diagnosis: CVA, sciatica, inflammation, vitamin deficiency, carpal tunnel syndrome, multiple sclerosis Lab Data: Labs: Lab Results 04/26/21 Unknown Urine Color Straw (Yellow) Urine Appearance Clear (CLEAR) Urine pH 5 (5-7) Ur Specific Gravit y 1.010 (1.005-1.030) Urine Protein Neg (Negative) Urine Glucose (UA) Norm (Normal) Urine Ketones Negative (Negative) Urine Blood Neg (Negative) Urine Nitrate Negative (Negative) Urine Bilirubin Neg (Negative) Urine Urobilinogen Norm mg/dL mg/dL (Negative) Ur Leukocyte Rula ase Negative (Negative) Discharge Plan Discharge Patient Disposition: Home Clinical Impression: Sciatica Qualifiers: Laterality: left Qualified Code(s): M54.32 - Sciatica, left side Condition: Stable Prescriptions: New Medrol (Tayo) 4 mg tablets,dose pack See Rx Instructions .ROUTE .COMPLEX Qty: 21 RF: 0 No Action metronidazole 500 mg tablet 500 mg PO Q8H Qty: 20 RF: 0 cholestyramine (with sugar) 4 gram powder in packet 4 g PO TID Qty: 60 RF: 0 triamcinolone acetonide 0.1 % cream 1 applic topical BID Qty: 80 RF: 0 lansoprazole [Prevacid] 30 mg capsule,delayed release(DR/EC) 30 mg PO DAILY Qty: 30 RF: 1 promethazine 25 mg tablet 25 mg PO Q6H PRN (Reason: nausea and vomiting) Qty: 20 RF: 2 dicyclomine 20 mg tablet See Rx Instructions .ROUTE .COMPLEX Qty: 90 RF: 2 acetaminophen 325 mg tablet 650 mg PO DAILY PRN (Reason: Pain) RF: 0 loperamide [Imodium A-D] 2 mg Tablet 2 mg PO Q4H PRN (Reason: Diarrhea) RF: 0 Discharge Orders: Discharge ED (Routine); Ordered 04/26/21 Ordered By: Rogerio Martinez Referrals: Damion Mckeon MD [Primary Care Provider] - Discharge Diet: Advance as tolerated Discharge Activity: Resume usual activity Patient Instructions: Sciatica (ED) Activity Restrictions/Additional Instructions: Take medications as prescribed. Take medication with food. Return to the emergency department with any new or worsening symptoms in particular inability to move 1 your legs sustained numbness or tingling difficulty moving your feet numbness or tingling in your face difficulty speaking or any other altered mental status Follow-up with your primary care provider in 3 to 5 days Coding Level of Care Code ED Tucking Machine Operator for Lucille De León
--- NOTE | 2021-04-26 19:55 | CTR_ITS ---
PROCEDURE INFORMATION: Exam: CT Head Without Contrast Exam date and time: 04/26/2021 7:55 PM Age: 45 years old Clinical indication: Pain; Numbness / parasthesia; Headache; Other: Right sided; Additional info: Right sided weakness TECHNIQUE: Imaging protocol: Computed tomography of the head without contrast. Radiation optimization: All CT scans at this facility use at least one of these dose optimization techniques: automated exposure control; mA and/or kV adjustment per patient size (includes targeted exams where dose is matched to clinical indication); or iterative reconstruction. COMPARISON: CT head wo con* [id number] 03/01/2019 11:58 PM RADIATION DOSE METRICS: Total DLP (mGy-cm): 846.81 FINDINGS: Brain: Normal. No hemorrhage. Unremarkable white matter. No mass effect. Cerebral ventricles: No ventriculomegaly. Paranasal sinuses: Visualized sinuses are unremarkable. No fluid levels. Mastoid air cells: Visualized mastoid air cells are well aerated. Bones/joints: Unremarkable. No acute fracture. Soft tissues: Unremarkable. CT/CT head wo con* [id number] IMPRESSION: No acute intracranial abnormality. Radiation Dose CTDIVOL = (mGy): DLP = 846.81 (mGy-cm)
[2021-04-26 20:08] LABS: Add Urine Microscopic? NO; Charge for UA Resulting for Rev
[2021-04-26 20:18] LABS: Bilirubin Urine Neg (Negative); Blood Urine Neg (Negative); Glucose Urine UA Norm (Normal); Ketones Urine Negative (Negative); Leukocyte Esterase Urine Negative (Negative); Nitrate Urine Negative (Negative); Protein Urine Neg (Negative); Urine Appearance Clear (CLEAR); Urine Color Straw (Yellow); Urobilinogen Urine Norm (Negative); pH Urine 5 (5-7)
--- NOTE | 2021-04-26 21:17 | PC.NURSE ---
Unable to obtain labs, Dr Martinez is notified.
[2021-04-26 21:18] VITALS: BP 132/75; PULSE 72; RESP 16; TEMP 36.7; O2SAT 100
[2021-04-26] MEDS: predniSONE 20 mg Tablet PO (21:26)
== END 2021-04-26 21:29 | disposition home or self-care (01) ==
PROVIDERS: Emergency Provider Family Medicine; PCP Family Medicine
DX: M54.32 Sciatica, left side (principal)
CPT/HCPCS: 51798; 70450; 81003; 99283; J7512

== ENCOUNTER → 2021-05-24 09:15 | Outpatient (BNVA) | payer MEDICAID, SELFPAY | PROVIDERS: PCP Family Medicine; Visit Provider Family Medicine | DX: G35 Multiple sclerosis (principal) | CPT/HCPCS: 80053; 82607; 85025; 86140 ==

== ENCOUNTER → 2021-06-05 11:58 | Outpatient (BNVA) | payer MEDICAID, SELFPAY | PROVIDERS: PCP Family Medicine; Referring Provider Family Medicine; Visit Provider Specialist | DX: H53.9 Unspecified visual disturbance (principal); E53.8 Deficiency of other specified B group vitamins; Z86.73 Personal history of transient ischemic attack (TIA), and cerebral infarction without residual deficits | CPT/HCPCS: 99204 ==

== ENCOUNTER → 2021-06-11 09:26 | Outpatient (BNVA) | payer MEDICAID, SELFPAY | PROVIDERS: PCP Family Medicine; Visit Provider Specialist | DX: E53.8 Deficiency of other specified B group vitamins (principal); G35 Multiple sclerosis | CPT/HCPCS: 96372 ==

== ENCOUNTER → 2021-06-12 09:52 | Outpatient (BNVA) | payer MEDICAID, SELFPAY | PROVIDERS: PCP Family Medicine; Visit Provider Specialist | DX: E53.8 Deficiency of other specified B group vitamins (principal); G35 Multiple sclerosis | CPT/HCPCS: 96372 ==

== ENCOUNTER → 2021-06-13 10:00 | Outpatient (BNVA) | payer MEDICAID, SELFPAY | PROVIDERS: PCP Family Medicine; Visit Provider Specialist | DX: E53.8 Deficiency of other specified B group vitamins (principal) | CPT/HCPCS: 96372 ==

== ENCOUNTER → 2021-06-18 12:09 | Outpatient (BNVA) | payer MEDICAID, SELFPAY | PROVIDERS: PCP Family Medicine; Visit Provider Specialist | DX: E53.8 Deficiency of other specified B group vitamins (principal); Z71.89 Other specified counseling | CPT/HCPCS: 96372 ==

== ENCOUNTER → 2021-07-02 14:31 | Outpatient (BNVA) | payer MEDICAID, SELFPAY | PROVIDERS: PCP Family Medicine; Visit Provider Specialist | DX: E53.8 Deficiency of other specified B group vitamins (principal); Z71.89 Other specified counseling | CPT/HCPCS: 96372 ==

== ENCOUNTER 2021-07-09 07:15 | Outpatient (CLI) | payer MEDICAID, SELFPAY ==
--- NOTE | 2021-07-09 07:15 | MR_ITS ---
WS: [id number] MRI HEAD WITHOUT CONTRAST TECHNIQUE: Sagittal T1, T2 axial, T2 axial FLAIR, axial and coronal T1 images, axial susceptibility w eighted imaging, axial diffusion weighted images, and coronal T2 images were obtained. CLINICAL INFORMATION: G35 - Multiple sclerosis COMPARISON: CT April 26 2021 FINDINGS: Some images degraded by motion artifact No evidence of restricted diffusion to suggest acute ischemia. Ventricular system and basal cisterns are patent. Normal posterior fossa. Normal vascular flow voids at the skull base. No extra axial flui d collections. No evidence of mass or mass effect. Paranasal sinuses and mastoid air cells are well a erated. Slight mucosal thickening mastoid tips. No hemosiderin on susceptibly weighted images. Normal corpus callosum. Normal optic chiasm and pituit codey infundibulum. Temporal lobes and hippocampal formations are normal in appearance. A few tiny foci of T2 hyperintensity in the subcortical white matter. No significant parenchymal volume loss. MR/MR head wo con* [id number] IMPRESSION: Exam is somewhat limited due to motion artifact. Patient claustroph obic. 1. No evidence of restricted diffusion to suggest acute ischemia. 2. A few small punctate foci of T2 hyperintensity in the subcortical white mat ter considering motion artifact. No significant parenchymal volume loss. 3. No extra-axial fluid collections. No evidence of mass or mass effect. 4. Normal temporal lobes and hippocampal formations. 5. Corpus callosum appears normal. No significant callosal atrophy.
== END 2021-07-09 07:16 | disposition home or self-care (01) ==
LOC: RADSHAW 07:16
PROVIDERS: PCP Family Medicine; Visit Provider Specialist
DX: G35 Multiple sclerosis (principal)
CPT/HCPCS: 70551

== ENCOUNTER → 2021-08-06 10:20 | Outpatient (BNVA) | payer MEDICAID, SELFPAY | PROVIDERS: PCP Family Medicine; Visit Provider Registered Nurse Neonatal Intensive Care | DX: N39.0 Urinary tract infection, site not specified (principal) | CPT/HCPCS: 81000 ==

== ENCOUNTER → 2021-09-05 14:39 | Outpatient (BNVA) | payer MEDICAID, SELFPAY | PROVIDERS: PCP Family Medicine; Visit Provider Specialist | DX: E53.8 Deficiency of other specified B group vitamins (principal); R25.2 Cramp and spasm; R20.2 Paresthesia of skin | CPT/HCPCS: 96372; 99214 ==

== ENCOUNTER → 2021-10-17 11:23 | Outpatient (BNVA) | payer MEDICAID, SELFPAY | PROVIDERS: PCP Family Medicine; Visit Provider Family Medicine | DX: E03.9 Hypothyroidism, unspecified (principal); E53.8 Deficiency of other specified B group vitamins; H10.33 Unspecified acute conjunctivitis, bilateral; Z68.30 Body mass index [BMI] 30.0-30.9, adult | CPT/HCPCS: 84439; 84443 ==

== ENCOUNTER 2021-10-29 16:15 | Emergency (ER) | payer MEDICAID, SELFPAY ==
[2021-10-29 16:27] VITALS: BP 136/90; PULSE 96; RESP 18; TEMP 37.2; O2SAT 95; BMI 29.0
[2021-10-29 16:51] VITALS: BP 122/84; PULSE 87; TEMP 37.1; O2SAT 94
--- NOTE | 2021-10-29 16:51 | W.ED.ABDPA2 ---
Documented by User: Kaden Rojas DO 10/30/21 05:50 HPI - Abdominal Pain General: Chief Complaint: Abdominal Pain Stated Complaint: diarrhea/vomiting/fever Time Seen by Provider: 10/29/21 16:51 Source: patient Mode of arrival: ambulatory Limitations: no limitations History of Present Illness: MD elicited complaint: abdominal pain Onset (ago): day(s) Pain Consistency: constant Location: Periumbilical Severity: moderate Quality: cramping Radiation: none Exacerbating factors: nothing Relieving factors: nothing Associated Symptoms: Reports GI cramping, diarrhea, nausea and vomiting; Denies anorexia, belching, bloating, change in bowel habits, change in stool character, chills, coffee ground emesis, constipation, dyspepsia, dysuria, excessive flatus, fever(s), heartburn, hematochezia, hematuria, hematemesis, fecal incontinence, loose stools, melena, poor appetite and syncope Related Data: Date of Last Menstrual Period: 04/23/17 Patient : No Review of Systems Const: Denies: fever(s) or chills ENMT: Denies: throat pain, ear or mastoid pain, nasal discharge or nasal congestion Card: Denies: syncope Resp: Denies: dyspnea, productive cough or non-productive cough GI: Reports: abdominal pain, nausea, vomiting, diarrhea and GI cramping; Denies: hematemesis, coffee ground emesis, heartburn, constipation, bloating, belching, excessive flatus, fecal incontinence, change in bowel habits, pain on defecation, change in stool character, hematochezia or melena : Denies: flank pain, difficulty voiding, dysuria, urinary frequency, urinary urgency or hematuria Skin/Breast: Denies: rash or pruritus PFSH ED PFSH: Medical History Aftercare following surgery of the genitourinary system Morbid obesity (~04/2020) Surgical History History of abdominal hysterectomy 09/04/2016- Performed per Dr. Howell @ [facility] due to AUB and cancerous cells. History of delivery 1993-Performed in [place] 1995-Performed in [place] History of gastric bypass History of right salpingo-oophorectomy laparoscopic right ovarian cystectomy and right salpingectomy- oophorectomy performed by Dr. Howell on 06/21/2020 at [facility] History of surgery for acute abdominal pain History of tubal ligation 1995- Performed in [place] Family History Sister Diabetes Grandmother Diabetes maternal Stroke maternal Hypertension maternal Breast cancer maternal Family/Other Colon cancer maternal aunt Stroke maternal aunts and maternal uncles Mother Hypertension Denies family history of Ovarian cancer Clotting disorder Heart disease Hyperlipidemia Anesthesia complication Bleeding disorder Uterine cancer Thyroid condition Social History Smoking and tobacco status: never smoked Alcohol intake: former Year of sobriety/quit date alcohol: 2019 Female Reproductive History: Date of last menstrual period: 04/23/17 Physical Exam Const: COMMON NORMALS: no acute distress GENERAL APPEARANCE: cooperative and comfortable ORIENTATION/CONSCIOUSNESS: Yes awake, Yes oriented to person, Yes oriented to place and Yes oriented to time HENMT: COMMON NORMALS: normocephalic, atraumatic, hearing grossly normal bilaterally, external ears normal, EAC's normal, TM's normal bilaterally, Normal nasal mucous membranes and turbinates present, moist oral mucous membranes and oropharynx normal HEAD & SCALP: normocephalic and atraumatic NOSE: Normal nasal mucous membranes and turbinates present EXTERNAL EAR: Yes external ears normal EXTERNAL AUDITORY CANAL: EAC's normal TYMPANIC MEMBRANE: TM's normal bilaterally Neck/C-Spine: COMMON NORMALS: no JVD Resp: COMMON NORMALS: normal respiratory effort, No retractions, No use of accessory muscles and clear to auscultation bilaterally AUSCULTATION: clear to auscultation bilaterally Cardio: COMMON NORMALS: no JVD, regular rate, regular rhythm and No murmurs present (Cardio) RATE: regular rate RHYTHM: regular rhythm GI: COMMON NORMALS: Soft to palpation and No hepatosplenomegaly present AUSCULTATION: Yes normoactive bowel sounds PALPATION: Yes Soft to palpation, No Tenderness to palpation present (GI), No Guarding due to palpation present (GI) and Yes No hepatosplenomegaly present Extremity: COMMON NORMALS: normal to inspection, capillary refill normal, no clubbing, cyanosis or edema, no calf tenderness and no pedal edema Neuro: SENSORIUM/ORIENTATION: Yes oriented to person, Yes oriented to place and Yes oriented to time Skin: COMMON NORMALS: no rashes or lesions noted GENERAL SKIN EXAM: no rashes or lesions noted Course Vital Signs: Vital signs: Vital Signs Temperature 98.7 F 10/29/21 16:51 Pulse Rate 82 10/29/21 20:47 Respiratory Rate 18 10/29/21 20:47 Blood Pressure 110/70 10/29/21 20:47 Pulse Oximetry 99 10/29/21 20:47 MDM - Abdominal Pain Medical Decision Making Care signed out to Dr. Calloway at change of shift. See final notes for diagnosis and disposition. The patient over from Dr. Morrow she does have abdominal pain likely from ovarian cyst ultrasound CT do show cyst here no other acute findings she has no signs of torsion her pain is much improved will prescribe her pain meds for home to follow-up with OB she is to return if worsening she understands agrees to plan. Medical Records I reviewed the patient's medical records. Lab Data I reviewed the patient's lab results. : 10/29/21 17:05 10/29/21 17:51 Labs/Radiology: Radiology Impressions Abdomen/Pelvis CT 10/29/21 16:56 IMPRESSION: 1. No acute abnormality identified within the abdomen. 2. 3.0 cm left adnexal cyst with a rind of peripheral enhancement. This could represent a physiologic cyst. Follow-up with pelvic ultrasound is recommended. 3. Mild pelvic ascites. Pelvis Ultrasound 10/29/21 18:05 IMPRESSION: 1. 3.1 cm left ovarian cyst may be slightly complicated with hemorrhage. Follow-up not needed. Reference: Vani Quick, Ritesh DL, Jaquelin RODRÍGUEZ, et al. Management of asymptomatic ovarian and other adnexal cysts imaged at US: Society of Radiologists in Ultrasound Consensus Conference Statement. Radiology. 2010;256(3):943-954. Link: [email or web address] Reference: Kp Mason MD, Uday BLAKELY, et al. Simple Adnexal Cysts: U Consensus Conference Update on Follow-up and Reporting. Radiology. 2019;293(2):359-371. Link: [email or web address] Modified: 10/06/2020 Laboratory Results WBC 4.3 10^3/uL (4.0-10.0) 10/29/21 17:05 RBC 4.82 10^6/uL (4.1-5.3) 10/29/21 17:05 Hgb 15.0 g/dL (11.5-15.3) 10/29/21 17:05 Hct 48.0 % (37.0-47.0) H 10/29/21 17:05 MCV 99.6 fl (81-99) H 10/29/21 17:05 MCH 31.1 pg (28.0-34.0) 10/29/21 17:05 MCHC 31.3 g/dL (30.0-36.0) 10/29/21 17:05 RDW 12.4 % (12.1-15.1) 10/29/21 17:05 Plt Count 165 10^3/cmm (130-400) 10/29/21 17:05 MPV 10.0 fL (7.4-10.4) 10/29/21 17:05 Neut % (Auto) 58.0 % 10/29/21 17:05 Lymph % (Auto) 29.6 % 10/29/21 17:05 [place] % (Auto) 11.5 % 10/29/21 17:05 Eos % (Auto) 0.7 % 10/29/21 17:05 Baso % (Auto) 0.2 % 10/29/21 17:05 Neut # (Auto) 2.47 10^3/uL (1.8-7.7) 10/29/21 17:05 Lymph # (Auto) 1.3 10^3/uL (0.8-4.8) 10/29/21 17:05 [place] # (Auto) 0.5 10^3/uL (0.2-0.9) 10/29/21 17:05 Eos # (Auto) 0.0 10^3/uL (0.0-0.8) 10/29/21 17:05 Baso # (Auto) 0.0 10^3/uL (0.0-0.1) 10/29/21 17:05 Nucleated RBC % (auto) 0 % 10/29/21 17:05 Nucleated RBCs # 0.0 /100WBC 10/29/21 17:05 Sodium 132 mmol/L (136-145) L 10/29/21 17:51 Potassium 3.3 mmol/L (3.5-5.1) L 10/29/21 17:51 Chloride 101 mmol/L (98-107) 10/29/21 17:51 Carbon Dioxide 21 mmol/L (22-29) L 10/29/21 17:51 Anion Gap 13.3 (5-19) 10/29/21 17:51 BUN 8 mg/dL (6-20) 10/29/21 17:51 Creatinine 0.5 mg/dL (0.5-0.9) 10/29/21 17:51 GFR Calculation 132.2 mL/min (90-130) H 10/29/21 17:51 Glucose 84 mg/dL (65-115) 10/29/21 17:51 Calculated Osmolality 272 mOsm/kg (285-295) L 10/29/21 17:51 Calcium 9.0 mg/dL (8.5-10.5) 10/29/21 17:51 Total Bilirubin 0.5 mg/dL (0.15-1.2) 10/29/21 17:51 AST 34 U/L (0-32) H 10/29/21 17:51 ALT 35 U/L (0-33) H 10/29/21 17:51 Alkaline Phosphatase 68 IU/L (35-105) 10/29/21 17:51 Total Protein 7.0 g/dL (6.6-8.7) 10/29/21 17:51 Albumin 4.0 g/dL (3.5-5.2) 10/29/21 17:51 Globulin 3.0 g/dL (1.3-4.6) 10/29/21 17:51 Lipase 28 U/L (13-60) 10/29/21 17:51 Urine Color Yellow (Yellow) 10/29/21 17:40 Urine Appearance Clear (CLEAR) 10/29/21 17:40 Urine pH 5 (5-7) 10/29/21 17:40 Ur Specific [place] 1.010 (1.005-1.030) 10/29/21 17:40 Urine Protein Neg (Negative) 10/29/21 17:40 Urine Glucose (UA) Norm (Normal) 10/29/21 17:40 Urine Ketones Negative (Negative) 10/29/21 17:40 Urine Blood Neg (Negative) 10/29/21 17:40 Urine Nitrate Negative (Negative) 10/29/21 17:40 Urine Bilirubin Neg (Negative) 10/29/21 17:40 Urine Urobilinogen Norm mg/dL (Negative) 10/29/21 17:40 Ur Leukocyte Esterase Negative (Negative) 10/29/21 17:40 Discharge Plan Discharge Patient Disposition: Home Clinical Impression: Ovarian cyst Condition: Stable Prescriptions: New hydrocodone-acetaminophen 5-325 mg tablet 1 tab PO Q6H PRN (Reason: pain) Qty: 14 0RF ondansetron 4 mg tablet,disintegrating 4 mg PO Q6H PRN (Reason: nausea and vomiting) Qty: 14 0RF No Action levothyroxine [Synthroid] 75 mcg tablet 75 mcg PO DAILY Qty: 60 1RF dicyclomine 20 mg tablet 20 mg PO TID PRN (Reason: Cramps) 0RF promethazine 25 mg tablet 25 mg PO Q6H PRN (Reason: Nausea) 0RF Discharge Orders: Discharge ED (Routine); Ordered 10/29/21 Ordered By: Cheryl Calloway Referrals: Damion Mckeon MD [Primary Care Provider] - Discharge Diet: Advance as tolerated Discharge Activity: Resume usual activity Patient Instructions: Ovarian Cyst (ED), Opioid Safety Coding Level of Care Code ED Trading Floor Operator for Chg Fwd Exam Comprehensive Documented by User: Cheryl Calloway MD 10/29/21 20:28 HPI - Abdominal Pain General: Chief Complaint: Abdominal Pain Stated Complaint: diarrhea/vomiting/fever Time Seen by Provider: 10/29/21 16:51 History of Present Illness: . PFSH ED PFSH: Medical History Aftercare following surgery of the genitourinary system Morbid obesity (~04/2020) Surgical History History of abdominal hysterectomy 09/04/2016- Performed per Dr. Howell @ [facility] due to AUB and cancerous cells. History of delivery 1993-Performed [place] 1995-[place] History of gastric bypass History of right salpingo-oophorectomy laparoscopic right ovarian cystectomy and right salpingectomy- oophorectomy performed by Dr. Howell on 06/21/2020 at [facility] History of surgery for acute abdominal pain History of tubal ligation 1995- Performed [place] Family History Sister Diabetes Grandmother Diabetes maternal Stroke maternal Hypertension maternal Breast cancer maternal Family/Other Colon cancer maternal aunt Stroke maternal aunts and maternal uncles Mother Hypertension Denies family history of Ovarian cancer Clotting disorder Heart disease Hyperlipidemia Anesthesia complication Bleeding disorder Uterine cancer Thyroid condition Social History Smoking and tobacco status: never smoked Alcohol intake: former Year of sobriety/quit date alcohol: 2019 Course Vital Signs: Vital signs: Vital Signs Temperature 98.7 F 10/29/21 16:51 Pulse Rate 82 10/29/21 20:47 Respiratory Rate 18 10/29/21 20:47 Blood Pressure 110/70 10/29/21 20:47 Pulse Oximetry 99 10/29/21 20:47 MDM - Abdominal Pain Medical Decision Making Care signed out to Dr. Calloway at change of shift. See final notes for diagnosis and disposition. The patient over from Dr. Morrow she does have abdominal pain likely from ovarian cyst ultrasound CT do show cyst here no other acute findings she has no signs of torsion her pain is much improved will prescribe her pain meds for home to follow-up with OB she is to return if worsening she understands agrees to plan. Lab Data : 10/29/21 17:05 10/29/21 17:51 Labs/Radiology: Radiology Impressions Abdomen/Pelvis CT 10/29/21 16:56 IMPRESSION: 1. No acute abnormality identified within the abdomen. 2. 3.0 cm left adnexal cyst with a rind of peripheral enhancement. This could represent a physiologic cyst. Follow-up with pelvic ultrasound is recommended. 3. Mild pelvic ascites. Pelvis Ultrasound 10/29/21 18:05 IMPRESSION: 1. 3.1 cm left ovarian cyst may be slightly complicated with hemorrhage. Follow-up not needed. Reference: Vani Quick, Ritesh DL, Jaquelin RF, et al. Management of asymptomatic ovarian and other adnexal cysts imaged at US: Society of Radiologists in Ultrasound Consensus Conference Statement. Radiology. 2010;256(3):943-954. Link: https://[email or web address]/[email or web address] Reference: Vani Quick, Kp PETTY, Uday EJ, et al. Simple Adnexal Cysts: SRU Consensus Conference Update on Follow-up and Reporting. Radiology. 2019;293(2):359-371. Link: [email or web address] Modified: 10/06/2020 Laboratory Results WBC 4.3 10^3/uL (4.0-10.0) 10/29/21 17:05 RBC 4.82 10^6/uL (4.1-5.3) 10/29/21 17:05 Hgb 15.0 g/dL (11.5-15.3) 10/29/21 17:05 Hct 48.0 % (37.0-47.0) H 10/29/21 17:05 MCV 99.6 fl (81-99) H 10/29/21 17:05 MCH 31.1 pg (28.0-34.0) 10/29/21 17:05 MCHC 31.3 g/dL (30.0-36.0) 10/29/21 17:05 RDW 12.4 % (12.1-15.1) 10/29/21 17:05 Plt Count 165 10^3/cmm (130-400) 10/29/21 17:05 MPV 10.0 fL (7.4-10.4) 10/29/21 17:05 Neut % (Auto) 58.0 % 10/29/21 17:05 Lymph % (Auto) 29.6 % 10/29/21 17:05 [place] % (Auto) 11.5 % 10/29/21 17:05 Eos % (Auto) 0.7 % 10/29/21 17:05 Baso % (Auto) 0.2 % 10/29/21 17:05 Neut # (Auto) 2.47 10^3/uL (1.8-7.7) 10/29/21 17:05 Lymph # (Auto) 1.3 10^3/uL (0.8-4.8) 10/29/21 17:05 [place] # (Auto) 0.5 10^3/uL (0.2-0.9) 10/29/21 17:05 Eos # (Auto) 0.0 10^3/uL (0.0-0.8) 10/29/21 17:05 Baso # (Auto) 0.0 10^3/uL (0.0-0.1) 10/29/21 17:05 Nucleated RBC % (auto) 0 % 10/29/21 17:05 Nucleated RBCs # 0.0 /100WBC 10/29/21 17:05 Sodium 132 mmol/L (136-145) L 10/29/21 17:51 Potassium 3.3 mmol/L (3.5-5.1) L 10/29/21 17:51 Chloride 101 mmol/L (98-107) 10/29/21 17:51 Carbon Dioxide 21 mmol/L (22-29) L 10/29/21 17:51 Anion Gap 13.3 (5-19) 10/29/21 17:51 BUN 8 mg/dL (6-20) 10/29/21 17:51 Creatinine 0.5 mg/dL (0.5-0.9) 10/29/21 17:51 GFR Calculation 132.2 mL/min (90-130) H 10/29/21 17:51 Glucose 84 mg/dL (65-115) 10/29/21 17:51 Calculated Osmolality 272 mOsm/kg (285-295) L 10/29/21 17:51 Calcium 9.0 mg/dL (8.5-10.5) 10/29/21 17:51 Total Bilirubin 0.5 mg/dL (0.15-1.2) 10/29/21 17:51 AST 34 U/L (0-32) H 10/29/21 17:51 ALT 35 U/L (0-33) H 10/29/21 17:51 Alkaline Phosphatase 68 IU/L (35-105) 10/29/21 17:51 Total Protein 7.0 g/dL (6.6-8.7) 10/29/21 17:51 Albumin 4.0 g/dL (3.5-5.2) 10/29/21 17:51 Globulin 3.0 g/dL (1.3-4.6) 10/29/21 17:51 Lipase 28 U/L (13-60) 10/29/21 17:51 Urine Color Yellow (Yellow) 10/29/21 17:40 Urine Appearance Clear (CLEAR) 10/29/21 17:40 Urine pH 5 (5-7) 10/29/21 17:40 Ur Specific [place] 1.010 (1.005-1.030) 10/29/21 17:40 Urine Protein Neg (Negative) 10/29/21 17:40 Urine Glucose (UA) Norm (Normal) 10/29/21 17:40 Urine Ketones Negative (Negative) 10/29/21 17:40 Urine Blood Neg (Negative) 10/29/21 17:40 Urine Nitrate Negative (Negative) 10/29/21 17:40 Urine Bilirubin Neg (Negative) 10/29/21 17:40 Urine Urobilinogen Norm mg/dL (Negative) 10/29/21 17:40 Ur Leukocyte Esterase Negative (Negative) 10/29/21 17:40 Discharge Plan Discharge Patient Disposition: Home Clinical Impression: Ovarian cyst Condition: Stable Prescriptions: New hydrocodone-acetaminophen 5-325 mg tablet 1 tab PO Q6H PRN (Reason: pain) Qty: 14 0RF ondansetron 4 mg tablet,disintegrating 4 mg PO Q6H PRN (Reason: nausea and vomiting) Qty: 14 0RF No Action levothyroxine [Synthroid] 75 mcg tablet 75 mcg PO DAILY Qty: 60 1RF dicyclomine 20 mg tablet 20 mg PO TID PRN (Reason: Cramps) 0RF promethazine 25 mg tablet 25 mg PO Q6H PRN (Reason: Nausea) 0RF Discharge Orders: Discharge ED (Routine); Ordered 10/29/21 Ordered By: Cheryl Calloway Referrals: Mckeon,Druery, MD [Primary Care Provider] - Discharge Diet: Advance as tolerated Discharge Activity: Resume usual activity Patient Instructions: Ovarian Cyst (ED), Opioid Safety Coding Level of Care Code ED Trading Floor Operator for Chg Fwd Exam Comprehensive
--- NOTE | 2021-10-29 16:56 | CTR_ITS ---
PROCEDURE INFORMATION: Exam: CT Abdomen And Pelvis With Contrast Exam date and time: 10/29/2021 5:22 PM Age: 46 years old Clinical indication: Vomiting; Prior surgery; Surgery date: 6+ months; Surgery type: Gastric bypass, ladonna; Patient HX: Pain in right side; Additional info: Abd pain TECHNIQUE: Imaging protocol: Computed tomography of the abdomen and pelvis with contrast. Radiation optimization: All CT scans at this facility use at least one of these dose optimization techniques: automated exposure control; mA and/or kV adjustment per patient size (includes targeted exams where dose is matched to clinical indication); or iterative reconstruction. Contrast material: OMNI 300; Contrast volume: 95 ml; Contrast route: INTRAVENOUS (IV); COMPARISON: CT abdomen pelvis w con* [id number] 11/07/2020 7:14 PM RADIATION DOSE METRICS: Total DLP (mGy-cm): 1601.78 FINDINGS: Liver: Normal. No mass. Gallbladder and bile ducts: Cholecystectomy. The bile ducts are within normal limits. Pancreas: Normal. No ductal dilation. Spleen: Normal. No splenomegaly. Adrenal glands: Normal. No mass. Kidneys and ureters: Excreted contrast material in the kidneys could obscure small renal calculi. No hydronephrosis or ureteral calculus. Stomach and bowel: Gastric bypass changes. The stomach is otherwise unremarkable. The entire colon is decompressed. No visible wall thickening. The small bowel is unremarkable. No wall thickening or obstruction. Appendix: The appendix is visualized and is normal. Intraperitoneal space: Pelvic ascites. No free air. Vasculature: Mild stenosis at the origin of the celiac artery may be due to compression by the median arcuate ligament. The superior mesenteric artery is patent with no stenosis. Lymph nodes: Unremarkable. No enlarged lymph nodes. Urinary bladder: Unremarkable as visualized. Reproductive: The uterus is absent. 3.0 cm oval left adnexal cyst, Hounsfield units 20, with a rind of peripheral enhancement. This is adjacent to or is arising from the left ovary. The right ovary is unremarkable. or lower laparotomy scar. Bones/joints: Unremarkable. No acute fracture. Soft tissues: Unremarkable. CT/CT abdomen pelvis w con* [id number] IMPRESSION: 1. No acute abnormality identified within the abdomen. 2. 3.0 cm left adnexal cyst with a rind of peripheral enhancement. This could represent a physiologic cyst. Follow-up with pelvic ultrasound is recommended. 3. Mild pelvic ascites.
[2021-10-29 17:30] LABS: Basophils % 0.2 %; Eosinophils % 0.7 %; Lymphocytes # 1.3 10^3/uL (0.8-4.8); Lymphocytes % 29.6 %; Mean Corpuscular HGB Conc 31.3 g/dL (30.0-36.0); Mean Corpuscular Hemoglobin 31.1 pg (28.0-34.0); Mean Corpuscular Volume 99.6 fl (81-99); Monocytes # 0.5 10^3/uL (0.2-0.9); Monocytes % 11.5 %; Neutrophils # 2.47 10^3/uL (1.8-7.7); Nucleated Red Blood Cells % 0 %; Platelet Count 165 10^3/cmm (130-400); Red Blood Count 4.82 10^6/uL (4.1-5.3); Red Cell Distribution Width 12.4 % (12.1-15.1); White Blood Count 4.3 10^3/uL (4.0-10.0)
[2021-10-29] MEDS: iohexol 300 mg/mL 100 mL Btl IV (17:30)
[2021-10-29 17:31] VITALS: BP 103/69; O2SAT 100
[2021-10-29 17:51] LABS: Add Urine Microscopic? NO; Charge for UA Resulting for Rev
[2021-10-29 17:54] LABS: Bilirubin Urine Neg (Negative); Blood Urine Neg (Negative); Glucose Urine UA Norm (Normal); Ketones Urine Negative (Negative); Leukocyte Esterase Urine Negative (Negative); Nitrate Urine Negative (Negative); Protein Urine Neg (Negative); Urine Appearance Clear (CLEAR); Urine Color Yellow (Yellow); Urobilinogen Urine Norm (Negative); pH Urine 5 (5-7)
--- NOTE | 2021-10-29 18:05 | USR_ITS ---
PROCEDURE INFORMATION: Exam: US Nonobstetric Pelvis; Complete Exam date and time: 10/29/2021 7:00 PM Age: 46 years old Clinical indication: Pelvic pain; Prior surgery; Surgery date: 6+ months; Patient HX: PT HX of hysterectomy/rt ovary removal/tubal ligation; Additional info: Abd pain TECHNIQUE: Imaging protocol: Transabdominal pelvic nonobstetric ultrasound. Complete exam. Real time ultrasound with image documentation. COMPARISON: CT abdomen pelvis w con* [id number] 10/29/2021 5:22 PM FINDINGS: Uterus: The uterus is surgically absent. Cervix: The cervix was not visualized. Right ovary/adnexa: The right ovary was not visualized. Left ovary/adnexa: The left ovary measures 3.0 x 3.5 x 2.7 cm with a 3.1 cm hypoechoic cyst which may have a small amount of internal debris. Normal blood flow. Intraperitoneal space: No intraperitoneal fluid. Urinary bladder: Normal. US/US pelvic complete* [id number] IMPRESSION: 1. 3.1 cm left ovarian cyst may be slightly complicated with hemorrhage. Follow-up not needed. Reference: Vani Quick, Ritesh DL, Jaquelin RF, et al. Management of asymptomatic ovarian and other adnexal cysts imaged at US: Society of Radiologists in Ultrasound Consensus Conference Statement. Radiology. 2010;256(3):943-954. Link: [email or web address] Reference: Kp Mason MD, Uday BLAKELY, et al. Simple Adnexal Cysts: SRU Consensus Conference Update on Follow-up and Reporting. Radiology. 2019;293(2):359-371. Link: [email or web address] Modified: 10/06/2020
[2021-10-29 18:31] VITALS: BP 118/89; O2SAT 99
[2021-10-29 18:32] LABS: Alanine Aminotransferase 35 U/L (0-33); Alkaline Phosphatase 68 IU/L (35-105); Anion Gap 13.3 (5-19); Aspartate Amino Transferase 34 U/L (0-32); Blood Urea Nitrogen 8 mg/dL (6-20); Carbon Dioxide 21 mmol/L (22-29); Chloride 101 mmol/L (98-107); Glomerular Filtration Rate 132.2 mL/min (90-130); Glucose 84 mg/dL (65-115); Osmolality Calculated 272 mOsm/kg (285-295); Potassium 3.3 mmol/L (3.5-5.1); Sodium 132 mmol/L (136-145); Total Bilirubin 0.5 mg/dL (0.15-1.2)
[2021-10-29 18:33] LABS: Lipase 28 U/L (13-60)
[2021-10-29] MEDS: metoclopramide 5 mg/mL SDV 2 mL 10 MG IVP (18:49)
[2021-10-29] MEDS: diphenhydrAMINE 50 mg/mL SDV 1mL IVP (18:50)
[2021-10-29 20:08] VITALS: BP 105/71; PULSE 90; RESP 14; O2SAT 100
[2021-10-29] MEDS: sodium chloride 0.9% 1,000 ML 999 ML IV (20:19)
[2021-10-29 20:47] VITALS: BP 110/70; PULSE 82; RESP 18; O2SAT 99
--- NOTE | 2021-10-30 10:57 | DCPLANNER ---
Addendum entered by Candace Glez 11/14/21 15:39: Patient has a follow up appointment scheduled for 11.02.21 with [facility] - patient did attend appointment. Addendum entered by Candace Glez 11/02/21 07:42: Patient has a follow up appointment scheduled for Tuesday, November 02, 2021 at 2:[address] Howell at [facility]. Clinic will call patient with appointment information. Original Note: manager community outreach had message to schedule a follow up appointment for patient with [facility]. manager community outreach sent patients information to the front staff at [facility]. Patients information will be printed and reviewed. Clinic will call patient with appointment information.
== END 2021-10-29 20:49 | disposition home or self-care (01) ==
PROVIDERS: Family Medicine; Emergency Provider Emergency Medicine; PCP Family Medicine
DX: N83.202 Unspecified ovarian cyst, left side (principal)
CPT/HCPCS: 74177; 76856; 80053; 81003; 83690; 85025; 96361; 96374; 96375; 99284; J1200; J2765; J7030; Q9967

== ENCOUNTER 2021-11-19 14:03 | Outpatient (CLI) | payer MEDICAID, SELFPAY ==
[2021-11-19 15:41] LABS: Estmated Average Glucose 100; Hemoglobin A1C 5.1 % (4.0-6.0)
[2021-11-19 15:42] LABS: 25 Hydroxy Vitamin D 46 ng/mL (30-100); Alanine Aminotransferase 21 U/L (0-33); Albumin Level 4.2 g/dL (3.5-5.2); Alkaline Phosphatase 77 IU/L (35-105); Anion Gap 13.1 (5-19); Aspartate Amino Transferase 22 U/L (0-32); Blood Urea Nitrogen 12 mg/dL (6-20); Calcium 8.8 mg/dL (8.5-10.5); Carbon Dioxide 25 mmol/L (22-29); Chloride 103 mmol/L (98-107); Chol HDL Ratio 3.09 mg/dL (0.0-4.40); Cholesterol 142 mg/dL (0-200); Glomerular Filtration Rate 107.2 mL/min (90-130); Glucose 90 mg/dL (65-115); HDL Cholesterol 46 mg/dL (60-100); LDL Cholesterol Calculated 62 mg/dL (50-129); LDL HDL Ratio 1.35 RATIO (0.00-3.22); Magnesium 2.1 mg/dL (1.7-2.3); Osmolality Calculated 283 mOsm/kg (285-295); Potassium 4.1 mmol/L (3.5-5.1); Sodium 137 mmol/L (136-145); Total Bilirubin 0.3 mg/dL (0.15-1.2); Total Protein 7.2 g/dL (6.6-8.7); Triglycerides 170 mg/dL (0-150); Vitamin B12 384 pg/mL (232-1245)
[2021-11-19 15:49] LABS: Folate Level 5.7 ng/mL (4.8-37.3)
[2021-11-23 09:51] LABS: Vitamin B1(Thiamin) Plas/Ser 16 nmol/L (8-30)
== END 2021-11-19 14:04 | disposition home or self-care (01) ==
LOC: LAB 14:05
PROVIDERS: PCP Family Medicine; Visit Provider Surgery
DX: K91.2 Postsurgical malabsorption, not elsewhere classified (principal); Z90.3 Acquired absence of stomach [part of]
CPT/HCPCS: 80053; 80061; 82306; 82607; 82746; 83036; 83735; 84425

== ENCOUNTER → 2021-12-12 10:53 | Outpatient (BNVA) | payer MEDICAID, SELFPAY | PROVIDERS: PCP Family Medicine; Visit Provider Obstetrics & Gynecology | DX: N83.292 Other ovarian cyst, left side (principal); Z90.710 Acquired absence of both cervix and uterus; Z90.721 Acquired absence of ovaries, unilateral | CPT/HCPCS: 76830 ==

== ENCOUNTER → 2022-02-05 14:58 | Outpatient (BNVA) | payer MEDICAID, SELFPAY | PROVIDERS: PCP Family Medicine; Visit Provider Obstetrics & Gynecology | DX: N83.202 Unspecified ovarian cyst, left side (principal); Z90.710 Acquired absence of both cervix and uterus; R52 Pain, unspecified; Z90.721 Acquired absence of ovaries, unilateral | CPT/HCPCS: 76830 ==

== ENCOUNTER 2022-02-17 20:23 | Emergency (ER) | payer MEDICAID, SELFPAY ==
[2022-02-17 20:30] VITALS: BP 155/104; PULSE 81; RESP 28; O2SAT 100; BMI 32.3
--- NOTE | 2022-02-17 20:36 | CTR_ITS ---
PROCEDURE INFORMATION: Exam: CT Abdomen And Pelvis Without Contrast Exam date and time: 02/17/2022 8:57 PM Age: 46 years old Clinical indication: Abdominal pain; Localized; Right lower quadrant (rlq); Prior surgery; Surgery date: 6+ months; Surgery type: Hyst, gb, bladder; Patient HX: C/O intermittent pelvic pain w cyst seen on u/s; Additional info: Abd pain TECHNIQUE: Imaging protocol: Computed tomography of the abdomen and pelvis without contrast. Radiation optimization: All CT scans at this facility use at least one of these dose optimization techniques: automated exposure control; mA and/or kV adjustment per patient size (includes targeted exams where dose is matched to clinical indication); or iterative reconstruction. COMPARISON: CT abdomen pelvis w con* [id number] 10/29/2021 5:22 PM RADIATION DOSE METRICS: Total DLP (mGy-cm): 1115.73 FINDINGS: Liver: Normal. No mass. Gallbladder and bile ducts: The gallbladder has been removed. Pancreas: Normal. No ductal dilation. Spleen: Normal. No splenomegaly. Adrenal glands: Normal. No mass. Kidneys and ureters: Normal. No hydronephrosis. Stomach and bowel: Colonic constipation is present. Appendix: A normal appendix is identified. Intraperitoneal space: Unremarkable. No free air. No significant fluid collection. Vasculature: Unremarkable. No abdominal aortic aneurysm. Lymph nodes: Unremarkable. No enlarged lymph nodes. Urinary bladder: Unremarkable as visualized. Reproductive: The uterus is not visualized, consistent with hysterectomy. There is a 3.4 cm cyst with benign features in the left adnexa.The uterus is not visualized, consistent with hysterectomy. Bones/joints: There are degenerative changes across the pubic symphysis. Soft tissues: Unremarkable. CT/CT abdomen pelvis wo con [id number] IMPRESSION: Colonic constipation is present.
--- NOTE | 2022-02-17 20:37 | W.ED.ABDPA2 ---
HPI - Abdominal Pain General: Chief Complaint: Abdominal Pain Stated Complaint: abd pain Time Seen by Provider: 02/17/22 20:26 Source: patient Mode of arrival: ambulatory Limitations: no limitations History of Present Illness: 46-year-old female who skin history of chronic abdominal pain states that she been having increasing pain she has been followed by OB for ovarian cyst on the right she has had a hysterectomy. Patient states that she had seen Dr. Tucker on Friday who informed her that she likely would need surgery she had a hemorrhagic cyst but he is on vacation. States that over the last 4 days she had increasing pain to the lower abdomen states pain is sharp in nature rates it a 6 out of 10 denies any worsening improving factors. Associated Symptoms: Denies chills, dysuria and fever(s) Related Data: Date of Last Menstrual Period: 04/23/17 Review of Systems Const: Denies: fever(s), chills, body aches or change in appetite Eyes: Denies: blurry vision or eye discomfort ENMT: Denies: throat pain or dental pain Card: Denies: chest pain Resp: Denies: dyspnea GI: Reports: abdominal pain : Denies: dysuria Musc: Denies: neck pain or back pain Skin/Breast: Denies: rash Neuro: Denies: headache(s) Psych: Denies: depression Nathan/Lymph: Denies: easy bruising All/Imm: Denies: urticaria PFSH ED PFSH: Medical History Aftercare following surgery of the genitourinary system Morbid obesity (~04/2020) Surgical History History of abdominal hysterectomy 09/04/2016- Performed per Dr. Howell @ [facility] due to AUB and cancerous cells. History of delivery 1993-[place]formed in [place] 1995-[place] History of gastric bypass History of right salpingo-oophorectomy laparoscopic right ovarian cystectomy and right salpingectomy- oophorectomy performed by Dr. Howell on 06/21/2020 at [facility] History of surgery for acute abdominal pain History of tubal ligation 1995- Performed in [place], [place] Family History Sister Diabetes Grandmother Diabetes maternal Stroke maternal Hypertension maternal Breast cancer maternal Family/Other Colon cancer maternal aunt Stroke maternal aunts and maternal uncles Mother Hypertension Denies family history of Ovarian cancer Clotting disorder Heart disease Hyperlipidemia Anesthesia complication Bleeding disorder Uterine cancer Thyroid condition Social History Smoking and tobacco status: never smoked Alcohol intake: former Year of sobriety/quit date alcohol: 2019 Female Reproductive History: Date of last menstrual period: 04/23/17 Physical Exam Const: COMMON NORMALS: no acute distress, patient oriented x3 and healthy appearing HENMT: COMMON NORMALS: normocephalic and atraumatic HEAD & SCALP: normocephalic and atraumatic Eye: COMMON NORMALS: Equal, round and reactive pupils present and EOMs intact bilaterally PUPIL: Yes Equal, round and reactive pupils present Neck/C-Spine: COMMON NORMALS: full ROM and supple Chest: COMMONS NORMALS: normal inspection of the chest and normal palpation of entire chest wall Resp: COMMON NORMALS: normal respiratory effort, No retractions, No use of accessory muscles and clear to auscultation bilaterally AUSCULTATION: clear to auscultation bilaterally Cardio: COMMON NORMALS: regular rate, regular rhythm and No murmurs present (Cardio) RATE: regular rate RHYTHM: regular rhythm GI: COMMON NORMALS: Normal to inspection, nondistended, normoactive bowel sounds present, Soft to palpation and no masses PALPATION: Yes Soft to palpation OTHER: diffuse moderate tenderness Extremity: COMMON NORMALS: normal to inspection and full ROM Neuro: COMMON NORMALS: patient oriented x3, moves all extremities and no focal motor deficits Psych: COMMON NORMALS: mental status grossly normal, Normal thought process present and cooperative THOUGHT PROCESS: Normal thought process present Skin: COMMON NORMALS: no rashes or lesions noted and no wounds GENERAL SKIN EXAM: no rashes or lesions noted Course Vital Signs: Vital signs: Vital Signs Pulse Rate 61 02/17/22 23:04 Respiratory Rate 12 02/17/22 23:04 Blood Pressure 100/65 02/17/22 23:04 Pulse Oximetry 97 02/17/22 23:04 MDM - Abdominal Pain Medical Decision Making Patient presents for abdominal pain ultrasound CT here shows ovarian cyst no signs of torsion she feels improved here she is stable for discharge she is to follow-up with PCP and return if worsening she understands agrees to plan. Lab Data : 02/17/22 20:49 02/17/22 20:49 Labs/Radiology: Radiology Impressions Abdomen/Pelvis CT 02/17/22 20:36 IMPRESSION: Colonic constipation is present. Pelvic/Transvag US 02/17/22 21:48 IMPRESSION: 1. Status post hysterectomy. 2. Absent right ovary consistent with right oophorectomy. 3. Normal left ovarian perfusion. 4. 4.6 x 3.2 x 3.2 cm simple left ovarian cyst. Laboratory Results WBC 6.8 10^3/uL (4.0-10.0) 02/17/22 20:49 RBC 4.33 10^6/uL (4.1-5.3) 02/17/22 20:49 Hgb 13.3 g/dL (11.5-15.3) 02/17/22 20:49 Hct 40.5 % (37.0-47.0) 02/17/22 20:49 MCV 93.5 fl (81-99) 02/17/22 20:49 MCH 30.7 pg (28.0-34.0) 02/17/22 20:49 MCHC 32.8 g/dL (30.0-36.0) 02/17/22 20:49 RDW 12.7 % (12.1-15.1) 02/17/22 20:49 Plt Count 203 10^3/cmm (130-400) 02/17/22 20:49 MPV 10.1 fL (7.4-10.4) 02/17/22 20:49 Neut % (Auto) 54.8 % 02/17/22 20:49 Lymph % (Auto) 35.3 % 02/17/22 20:49 Rawlins % (Auto) 7.1 % 02/17/22 20:49 Eos % (Auto) 2.1 % 02/17/22 20:49 Baso % (Auto) 0.4 % 02/17/22 20:49 Neut # (Auto) 3.70 10^3/uL (1.8-7.7) 02/17/22 20:49 Lymph # (Auto) 2.4 10^3/uL (0.8-4.8) 02/17/22 20:49 Rawlins # (Auto) 0.5 10^3/uL (0.2-0.9) 02/17/22 20:49 Eos # (Auto) 0.1 10^3/uL (0.0-0.8) 02/17/22 20:49 Baso # (Auto) 0.0 10^3/uL (0.0-0.1) 02/17/22 20:49 Nucleated RBC % (auto) 0 % 02/17/22 20:49 Nucleated RBCs # 0.0 /100WBC 02/17/22 20:49 Sodium 139 mmol/L (136-145) 02/17/22 20:49 Potassium 3.8 mmol/L (3.5-5.1) 02/17/22 20:49 Chloride 105 mmol/L (98-107) 02/17/22 20:49 Carbon Dioxide 25 mmol/L (22-29) 02/17/22 20:49 Anion Gap 12.8 (5-19) 02/17/22 20:49 BUN 13 mg/dL (6-20) 02/17/22 20:49 Creatinine 0.7 mg/dL (0.5-0.9) 02/17/22 20:49 GFR Calculation 89.7 mL/min (90-130) L 02/17/22 20:49 Glucose 125 mg/dL (65-115) H 02/17/22 20:49 Calculated Osmolality 290 mOsm/kg (285-295) 02/17/22 20:49 Calcium 9.2 mg/dL (8.5-10.5) 02/17/22 20:49 Total Bilirubin 0.2 mg/dL (0.15-1.2) 02/17/22 20:49 AST 19 U/L (0-32) 02/17/22 20:49 ALT 14 U/L (0-33) 02/17/22 20:49 Alkaline Phosphatase 77 IU/L (35-105) 02/17/22 20:49 Total Protein 6.5 g/dL (6.6-8.7) L 02/17/22 20:49 Albumin 4.0 g/dL (3.5-5.2) 02/17/22 20:49 Globulin 2.5 g/dL (1.3-4.6) 02/17/22 20:49 Lipase 56 U/L (13-60) 02/17/22 20:49 Urine Color Yellow (Yellow) 02/17/22 22:15 Urine Appearance Clear (CLEAR) 02/17/22 22:15 Urine pH 5 (5-7) 02/17/22 22:15 Ur Specific Jackson 1.030 (1.005-1.030) 02/17/22 22:15 Urine Protein Neg (Negative) 02/17/22 22:15 Urine Glucose (UA) Norm (Normal) 02/17/22 22:15 Urine Ketones Negative (Negative) 02/17/22 22:15 Urine Blood Neg (Negative) 02/17/22 22:15 Urine Nitrate Negative (Negative) 02/17/22 22:15 Urine Bilirubin Neg (Negative) 02/17/22 22:15 Urine Urobilinogen Neg mg/dL (Negative) 02/17/22 22:15 Ur Leukocyte Esterase Negative (Negative) 02/17/22 22:15 Discharge Plan Discharge Patient Disposition: Home Clinical Impression: Ovarian cyst, Abdominal pain Condition: Stable Prescriptions: New hydrocodone-acetaminophen 5-325 mg tablet 1 tab PO Q6H PRN (Reason: pain) Qty: 14 0RF No Action promethazine 25 mg tablet See Rx Instructions .ROUTE .COMPLEX Qty: 60 2RF Dose Instruction: TAKE 1 TABLET BY MOUTH EVERY 6 HOURS NEEDED FOR NAUSEA AND VOMITING Rx Instructions: TAKE 1 TABLET BY MOUTH EVERY 6 HOURS NEEDED FOR NAUSEA AND VOMITING dicyclomine 20 mg tablet 20 mg PO TID PRN (Reason: Cramps) Qty: 90 5RF levothyroxine [Synthroid] 75 mcg tablet 75 mcg PO DAILY Qty: 60 1RF Discharge Orders: Discharge ED (Routine); Ordered 02/17/22 Ordered By: Cheryl Calloway Referrals: Damion Mckeon MD [Primary Care Provider] - Discharge Diet: Advance as tolerated Discharge Activity: Resume usual activity Patient Instructions: Abdominal Pain (ED), Opioid Safety Coding Level of Care Code ED Tour Conductor for Chg Fwd Exam Comprehensive
[2022-02-17 20:57] LABS: Basophils % 0.4 %; Eosinophils # 0.1 10^3/uL (0.0-0.8); Eosinophils % 2.1 %; Hematocrit 40.5 % (37.0-47.0); Hemoglobin 13.3 g/dL (11.5-15.3); Lymphocytes # 2.4 10^3/uL (0.8-4.8); Lymphocytes % 35.3 %; Mean Corpuscular HGB Conc 32.8 g/dL (30.0-36.0); Mean Corpuscular Hemoglobin 30.7 pg (28.0-34.0); Mean Corpuscular Volume 93.5 fl (81-99); Mean Platelet Volume 10.1 fL (7.4-10.4); Monocytes # 0.5 10^3/uL (0.2-0.9); Monocytes % 7.1 %; Neutrophils % 54.8 %; Nucleated Red Blood Cells % 0 %; Platelet Count 203 10^3/cmm (130-400); Red Blood Count 4.33 10^6/uL (4.1-5.3); Red Cell Distribution Width 12.7 % (12.1-15.1); White Blood Count 6.8 10^3/uL (4.0-10.0)
[2022-02-17 20:58] VITALS: RESP 17
[2022-02-17] MEDS: HYDROmorphone 1 mg/mL INJ 1 mL IVP (20:58)
[2022-02-17] MEDS: sodium chloride 0.9% 1,000 ML 999 ML IV (20:58)
[2022-02-17 21:04] VITALS: BP 114/60; PULSE 84; RESP 11; O2SAT 100
[2022-02-17 21:19] LABS: Alanine Aminotransferase 14 U/L (0-33); Alkaline Phosphatase 77 IU/L (35-105); Aspartate Amino Transferase 19 U/L (0-32); Blood Urea Nitrogen 13 mg/dL (6-20); Calcium 9.2 mg/dL (8.5-10.5); Carbon Dioxide 25 mmol/L (22-29); Chloride 105 mmol/L (98-107); Globulin 2.5 g/dL (1.3-4.6); Glomerular Filtration Rate 89.7 mL/min (90-130); Glucose 125 mg/dL (65-115); Lipase 56 U/L (13-60); Osmolality Calculated 290 mOsm/kg (285-295); Sodium 139 mmol/L (136-145); Total Bilirubin 0.2 mg/dL (0.15-1.2); Total Protein 6.5 g/dL (6.6-8.7)
[2022-02-17 21:26] LABS: Anion Gap 12.8 (5-19); Potassium 3.8 mmol/L (3.5-5.1)
[2022-02-17] MEDS: promethazine 25 mg/mL SDV 1 mL IM (21:39)
--- NOTE | 2022-02-17 21:48 | USR_ITS ---
PROCEDURE INFORMATION: Exam: US Nonobstetric Pelvis; Complete Exam date and time: 02/17/2022 10:48 PM Age: 46 years old Clinical indication: Abdominal pain; Left lower quadrant; Prior surgery; Surgery date: 6+ months; Surgery type: Hysterectomy oophorectomy RT; Additional info: Abd pain ovarian cyst TECHNIQUE: Imaging protocol: Transabdominal pelvic nonobstetric ultrasound. Complete exam. Real time ultrasound with image documentation. COMPARISON: US pelvic complete* [id number] 10/29/2021 7:00 PM FINDINGS: Uterus: Status post hysterectomy. Right ovary/adnexa: Absent right ovary consistent with right oophorectomy. Left ovary/adnexa: 2.7 x 2.8 x 2.0 cm left ovary. Normal left ovarian perfusion. 4.6 x 3.2 x 3.2 cm simple left ovarian cyst. Intraperitoneal space: No intraperitoneal fluid. Urinary bladder: Normal. US/US pelvic with transvaginal IMPRESSION: 1. Status post hysterectomy. 2. Absent right ovary consistent with right oophorectomy. 3. Normal left ovarian perfusion. 4. 4.6 x 3.2 x 3.2 cm simple left ovarian cyst.
[2022-02-17] MEDS: diphenhydrAMINE 50 mg/mL SDV 1mL IVP (22:11)
[2022-02-17] MEDS: metoclopramide 5 mg/mL SDV 2 mL 10 MG IVP (22:12)
[2022-02-17 22:17] LABS: Add Urine Microscopic? NO; Charge for UA Resulting for Rev
[2022-02-17 22:25] LABS: Bilirubin Urine Neg (Negative); Blood Urine Neg (Negative); Glucose Urine UA Norm (Normal); Ketones Urine Negative (Negative); Leukocyte Esterase Urine Negative (Negative); Nitrate Urine Negative (Negative); Protein Urine Neg (Negative); Urine Appearance Clear (CLEAR); Urine Color Yellow (Yellow); Urobilinogen Urine Neg (Negative); pH Urine 5 (5-7)
[2022-02-17 23:04] VITALS: BP 100/65; PULSE 61; RESP 12; O2SAT 97
== END 2022-02-18 00:11 | disposition home or self-care (01) ==
PROVIDERS: Emergency Provider Emergency Medicine; PCP Family Medicine
DX: R10.9 Unspecified abdominal pain (principal); N83.292 Other ovarian cyst, left side
CPT/HCPCS: 74176; 76830; 76856; 80053; 81003; 83690; 85025; 96372; 96374; 96375; 99285; J1170; J1200; J2550; J2765; J7030

== ENCOUNTER → 2022-03-21 08:17 | Day surgery (SDC) | payer MEDICAID, SELFPAY ==
[2022-03-15 12:23] LABS: Add Urine Microscopic? NO; Charge for UA Resulting for Rev
[2022-03-15 12:25] LABS: Basophils % 0.4 %; Eosinophils # 0.1 10^3/uL (0.0-0.8); Eosinophils % 0.9 %; Hematocrit 41.4 % (37.0-47.0); Hemoglobin 13.6 g/dL (11.5-15.3); Lymphocytes # 1.4 10^3/uL (0.8-4.8); Lymphocytes % 26.6 %; Mean Corpuscular HGB Conc 32.9 g/dL (30.0-36.0); Mean Corpuscular Hemoglobin 30.4 pg (28.0-34.0); Mean Corpuscular Volume 92.6 fl (81-99); Monocytes # 0.4 10^3/uL (0.2-0.9); Monocytes % 7.1 %; Neutrophils # 3.44 10^3/uL (1.8-7.7); Neutrophils % 64.6 %; Nucleated Red Blood Cells % 0 %; Platelet Count 176 10^3/cmm (130-400); Red Blood Count 4.47 10^6/uL (4.1-5.3); Red Cell Distribution Width 12.7 % (12.1-15.1); White Blood Count 5.3 10^3/uL (4.0-10.0)
[2022-03-15 12:31] LABS: Bilirubin Urine Neg (Negative); Blood Urine Neg (Negative); Glucose Urine UA Norm (Normal); Ketones Urine Negative (Negative); Leukocyte Esterase Urine Negative (Negative); Nitrate Urine Negative (Negative); Protein Urine Neg (Negative); Urine Appearance Clear (CLEAR); Urine Color Yellow (Yellow); Urobilinogen Urine Norm (Negative); pH Urine 5 (5-7)
[2022-03-15 12:48] LABS: Alanine Aminotransferase 12 U/L (0-33); Albumin Level 4.1 g/dL (3.5-5.2); Alkaline Phosphatase 69 U/L (35-105); Anion Gap 13.1 (5-19); Aspartate Amino Transferase 15 U/L (0-32); Blood Urea Nitrogen 12 mg/dL (6-20); Calcium 9.2 mg/dL (8.5-10.5); Carbon Dioxide 23 mmol/L (22-29); Chloride 108 mmol/L (98-107); Globulin 2.7 g/dL (1.3-4.6); Glomerular Filtration Rate 107.2 mL/min (90-130); Glucose 93 mg/dL (65-115); Osmolality Calculated 289 mOsm/kg (285-295); Potassium 4.1 mmol/L (3.5-5.1); Sodium 140 mmol/L (136-145); Total Bilirubin 0.5 mg/dL (0.15-1.2); Total Protein 6.8 g/dL (6.6-8.7)
--- NOTE | 2022-03-15 15:24 | ANES.PREANE2 ---
Pre-Anesthetic Assessment Height/Weight: Height 1.68 m Weight 81.647 kg Preop Diagnosis: Symptomatic cholelithiasis Operation Date: 03/21/22 12:00 Proposed Procedures p Laparoscopic Ovarian Cystectomy 79360,N83.209(Not Applicable) - Santo Howell MD Familial anesthetic complications: none Was Beta Mari taken within 24 hours: N/A Was Clonidine taken within 24 hours: N/A Social No alcohol and No tobacco Exam alert, oriented x 3, clear to auscultation bilaterally and regular rate & rhythm Airway Submandibular: within normal limits Cervical ROM: within normal limits Mallampati: Class II Dentition: full GI Gastroesophageal Reflux Disease Metabolic Thyroid Disease Neuropsych MS Anesthetic Plan ASA status: 2 Anesthesia: General Medications/Allergies Home Medications Medication Instructions Recorded Confirmed Last Taken Type levothyroxine 75 mcg tablet 75 mcg PO DAILY #60 tabs 01/02/22 03/15/22 Unknown Rx (Synthroid) promethazine 25 mg tablet 25 mg PO PRN PRN Nausea 03/15/22 03/15/22 Unknown History Allergies Allergy/AdvReac Type Severity Reaction Status Date / Time No Known Allergies Allergy Verified 03/15/22 11:04 [facility] Anesthesia Medical History Aftercare following surgery of the genitourinary system Morbid obesity (~04/2020) Surgical History History of abdominal hysterectomy 09/04/2016- Performed per Dr. Howell @ [facility] due to AUB and cancerous cells. History of delivery 1993-Performed in [place] 1995-[place] History of gastric bypass History of right salpingo-oophorectomy laparoscopic right ovarian cystectomy and right salpingectomy- oophorectomy performed by Dr. Howell on 06/21/2020 at [facility] History of surgery for acute abdominal pain History of tubal ligation 1995- Performed in [place], [place] Family History Sister Diabetes Grandmother Diabetes maternal Stroke maternal Hypertension maternal Breast cancer maternal Family/Other Colon cancer maternal aunt Stroke maternal aunts and maternal uncles Mother Hypertension Denies family history of Ovarian cancer Clotting disorder Heart disease Hyperlipidemia Anesthesia complication Bleeding disorder Uterine cancer Thyroid condition Social History Smoking and tobacco status: never smoked Alcohol intake: former Year of sobriety/quit date alcohol: 2019 Female Reproductive History Date of last menstrual period: 04/23/17 Data Anesthesia : 03/15/22 12:14 03/15/22 12:14 Short CBC 03/15/22 Range/Units 12:14 WBC 5.3 (4.0-10.0) 10^3/uL Hgb 13.6 (11.5-15.3) g/dL Hct 41.4 (37.0-47.0) % MCV 92.6 (81-99) fl Plt Count 176 (130-400) 10^3/cmm Neut % (Auto) 64.6 % Neut # (Auto) 3.44 (1.8-7.7) 10^3/uL BMP 03/15/22 12:14 Sodium 140 Potassium 4.1 Chloride 108 H Carbon Dioxide 23 BUN 12 Creatinine 0.6 Glucose 93 Calcium 9.2 Liver Function 03/15/22 Range/Units 12:14 Total Bilirubin 0.5 (0.15-1.2) mg/dL AST 15 (0-32) U/L ALT 12 (0-33) U/L Alkaline Phosphatase 69 (35-105) U/L Albumin 4.1 (3.5-5.2) g/dL Urine 03/15/22 Range/Units 12:14 Urine Color Yellow (Yellow) Urine Appearance Clear (CLEAR) Urine pH 5 (5-7) Ur Specific Pearl 1.020 (1.005-1.030) Urine Protein Neg (Negative) Urine Glucose (UA) Norm (Normal) Urine Ketones Negative (Negative) Urine Nitrate Negative (Negative) Urine Bilirubin Neg (Negative) Ur Leukocyte Esterase Negative (Negative) Cardiac Studies: No Data to Display
[2022-03-21] VITALS (19 sets, daily range): BP systolic 102–121; BP diastolic 62–86; PULSE 57–71; RESP 14–22; TEMP 36.2–36.9; O2SAT 97–100
[2022-03-21] MEDS: scopolamine 1.5 Patch 1 PATCH TRANSDERMA (08:45)
[2022-03-21] MEDS: sodium chloride 0.9% 500 ML IV (08:45)
[2022-03-21] MEDS: sodium chloride 0.9% 1,000 ML 30 ML IV (08:45)
--- NOTE | 2022-03-21 09:40 | P.ANESUD_ITS ---
Pre-Anesthetic Update Pre-Anesthetic Assessment: Date of Surgery/Procedure: 03/21/22 Preop Shellie gnosis: Chronic pelvic pain, left ovarian cyst, peritoneal inclusion cyst Proposed Procedure: Operation Date: 03/21/22 09:55 Proposed Procedures p Laparoscopic Ovarian Cystectomy 93141,N83.209(Not Applicable) - Santo Howell MD Any changes to Pre-Anesthetic Assessment?: No Last Intake: Intake Last Liquid Date 03/20/22 Last Liquid Time 23:00 Last Solid Date 03/20/22 Last Solid Time 21:00 Vitals: Temperature 98.4 F 03/21/22 08:51 Temperature Source Temporal Artery S can 03/21/22 08:51 Pulse Rate 71 03/21/22 08:51 Respiratory Rate 18 03/21/22 08:51 Blood Pressure 115/71 03/21/22 08:51 Blood Pressure Jackie n 85 03/21/22 08:51 Pulse Oximetry 100 03/21/22 08:51 Oxygen Delivery Me thod 03/21/22 08:51 Exam: Pre-Anes Outpt Exam: alert, oriented x 3, clear to auscultation bilater ally and regular rate & rhythm Cardiac Studies: No Data to Display
--- NOTE | 2022-03-21 09:41 | ANES.PREANE2 ---
Pre-Anesthetic Assessment Height/Weight: Height 1.7 m Weight 81.647 kg Temp Pulse Resp BP Pulse Ox O2 Del Method 98.4 F 71 18 115/71 100 03/21/22 08:51 03/21/22 08:51 03/21/22 08:51 03/21/22 08:51 03/21/22 08:51 03/21/22 08:51 Preop Diagnosis: Chronic pelvic pain, left ovarian cyst, peritoneal inclusion cyst Operation Date: 03/21/22 09:55 Proposed Procedures p Laparoscopic Ovarian Cystectomy 97512,N83.209(Not Applicable) - Santo Howell MD Familial anesthetic complications: none Was Beta Mari taken within 24 hours: N/A Was Clonidine taken within 24 hours: N/A Last intake: Intake Last Liquid Date 03/20/22 Last Liquid Time 23:00 Last Solid Date 03/20/22 Last Solid Time 21:00 Social No alcohol and No tobacco Exam alert, oriented x 3, clear to auscultation bilaterally and regular rate & rhythm Airway Submandibular: within normal limits Cervical ROM: within normal limits Mallampati: Class II Dentition: full GI Gastroesophageal Reflux Disease Metabolic Thyroid Disease Neuropsych MS Anesthetic Plan ASA status: 2 Anesthesia: General Medications/Allergies Home Medications Medication Instructions Recorded Confirmed Last Taken Type levothyroxine 75 mcg tablet 75 mcg PO DAILY #60 tabs 01/02/22 03/15/22 Unknown Rx (Synthroid) promethazine 25 mg tablet 25 mg PO PRN PRN Nausea 03/15/22 03/15/22 Unknown History Allergies Allergy/AdvReac Type Severity Reaction Status Date / Time No Known Allergies Allergy Verified 03/15/22 11:04 Current Medications Generic Name Dose Route Start Last Admin Trade Name Freq PRN Reason Stop Dose Admin Sodium Chloride 1,000 mls @ 30 mls/hr 03/21/22 08:30 03/21/22 08:45 Sodium Chloride 0.9% IV 03/22/22 08:29 30 mls/hr .Q24H ELIDIA Administration PFSH Anesthesia Medical History Aftercare following surgery of the genitourinary system Morbid obesity (~04/2020) Surgical History History of abdominal hysterectomy 09/04/2016- Performed per Dr. Howell @ [facility] due to AUB and cancerous cells. History of delivery 1993-Performed in [place], [place] 1995-Performed in [place] History of gastric bypass History of right salpingo-oophorectomy laparoscopic right ovarian cystectomy and right salpingectomy- oophorectomy performed by Dr. Howell on 06/21/2020 at [facility] History of surgery for acute abdominal pain History of tubal ligation 1995- Performed in [place], [place] Family History Sister Diabetes Grandmother Diabetes maternal Stroke maternal Hypertension maternal Breast cancer maternal Family/Other Colon cancer maternal aunt Stroke maternal aunts and maternal uncles Mother Hypertension Denies family history of Ovarian cancer Clotting disorder Heart disease Hyperlipidemia Anesthesia complication Bleeding disorder Uterine cancer Thyroid condition Social History Smoking and tobacco status: never smoked Alcohol intake: former Year of sobriety/quit date alcohol: 2019 Female Reproductive History Date of last menstrual period: 04/23/17 Data Anesthesia : 03/15/22 12:14 03/15/22 12:14 Cardiac Studies: No Data to Display
--- NOTE | 2022-03-21 10:54 | W.PM.OPSUD ---
Surgery/Procedure H&P Update DATE OF PROCEDURE: March 21, 2022 DATE H&P PERFORMED: 03/15/22 H&P UPDATE INFORMATION: I have reviewed H&P completed within last 30 days, I have examined patient prior to procedure and No changes to prior documentation PREOP DIAGNOSIS: Chronic pelvic pain, left ovarian cyst, peritoneal inclusion cyst PLANNED PROCEDURE: Operation Date: 03/21/22 09:55 Proposed Procedures p Laparoscopic Ovarian Cystectomy 86974,N83.209(Not Applicable) - Santo Howell MD
[2022-03-21] MEDS: ceFAZolin 2,000 MG in sodium chloride 0.9% (plus) 50 ML 100 MG IV (11:01)
--- NOTE | 2022-03-21 12:45 | PM.OP ---
Operative Report Date of procedure: March 21, 2022 Pre-op diagnosis: Preop Diagnosis Chronic pelvic pain, left ovarian cyst, peritoneal inclusion cyst Post-op diagnosis: Chronic pelvic pain. Left ovarian cyst. Pelvic adhesions. Procedure done: Diagnostic laparoscopy. Laparoscopic lysis of adhesions. Laparoscopic cystectomy Specimens removed/disposition: Left ovarian cyst cytology Surgeon: Santo Howell MD Estimated blood loss (mL): 20 IV fluids (mL): 1,000 Urine output (mL): 150 Procedure: After informed consent, the patient was taken to the operating room where general anesthesia was administered. Pre-Procedure Time-Out verifying the correct patient identity, correct procedure verified with consent, correct site and side, correct patient position, availability of correct implants and any special equipment or requirements was performed and acknowledge by the OR team. She was placed in the dorsal lithotomy position and prepped and draped in sterile fashion. The patient was examined under anesthesia. A Ochoa catheter was placed in the bladder. A sponge stick was advanced into the vagina. The sponge stick was secured with a hemostat. The attention was brought to abdomen after changing gloves. The base of the umbilicus was grasped with an Allis clamp and with 2 towel clamp bilaterally tenting up the umbilicus an intraumbilical incision was made with a scalpel. While tenting up on the abdomen, a Verres needle with sleeve was admitted into the intra-abdominal cavity. A saline drop test was performed and noted to be within normal limits. Pneumoperitoneum was attained with 4 liters of carbon dioxide. The gas was seen to flow freely with normal resistance, so the CO2 gas was advanced to a higher setting. The abdomen was insufflated to an adequate distension. Once an adequate distention was reached, the Verres needle was removed. Then a 5 mm Optiview trocar and cannula were inserted under direct visualization without complications. Trocars were removed and the laparoscope was inserted. At this time, a second incision was made 3 cm above the symphysis pubis, and a 5 mm trocar and sleeve were admitted into the abdomen under direct, laparoscopic visualization without complication. A 5 mm blunt probe was advanced through the second trocar sleeve, and light manipulation of ovaries and uterus to assess the pelvis and posterior aspects was performed. The survey showed . A third incision was made in the left lower quadrant and the third 10mm trocar was inserted into the abdomen under direct visualization. Examination of the pelvis revealed omental adhesions to the anterior abdominal wall. With the Voyant sealing device the adhesions were lysed without complication. At this time, the left ovarian cyst appeared to be normal. Attention was turned to the pelvic adhesionsl were lysed. An approximately 5 to 6 cm incision was made along the ovary using electrocautery. At this point, it was dissected initially using hydrodissection and using blunt dissection. Entry into the cyst was created using the electrocautery. Suction was used to drain fluid at this time from the cyst. This was placed in the anterior cul-de-sac. At this time, the cyst wall was identified and was removed using blunt dissection with countertraction. The ovarian bed was then irrigated and dried. There was slight oozing noted near the edge of the ovary, obtained hemostasis using electrocautery. The pelvis was then irrigated. At this time, the pelvis was again copiously irrigated and dried. Hemostasis was assured. A Seprafilm was applied to the right ovary for adhesion prevention. At this time, all instruments were removed under visualization. The umbilical incision was closed using 2 interrupted stitches of 2-0 Vicryl sutures and the skin was closed using interrupted stitches of 4-0 Monocryl suture. Dermabond placed after closure of the ports. All instruments were removed. The patient tolerated the procedure well, and sponge, lap and needle count were correct times two. The patient taken to the recovery room in good condition.
[2022-03-21] MEDS: fentaNYL 50 mcg/mL INJ 2mL IVP ×2 (13:12→13:25)
[2022-03-21] MEDS: ondansetron 2 mg/ML SDV 2 mL 4 MG IVP ×2 (13:14→13:24)
[2022-03-21 13:26] LABS: Color, Peritoneal Fluid Red (Pale Yellow)
[2022-03-21 13:27] LABS: Appearance, Peritoneal Fluid Cloudy (Clear)
[2022-03-21 13:28] LABS: Cyto Order Verification No Order
[2022-03-21] MEDS: HYDROmorphone 1 mg/mL INJ 1 mL 0.5 MG IVP ×2 (13:33→13:43)
[2022-03-21 13:34] LABS: Polynuclear # Cells, Perit 0.059 10^3/uL
--- NOTE | 2022-03-21 13:43 | ANE.PACU2 ---
Inpatient post-anesthesia follow up: Airway intact: Yes Vital signs: Temperature 97.1 F Pulse Rate 59 Respiratory Rate 16 Blood Pressure 109/69 Pulse Oximetry 100 Oxygen Delivery Me thod Room Air Oxygen Flow Rate 6 Fraction of Inspir ed Oxygen Hydration adequate: Yes Nausea and vomiting: No Pain level: 3 Mental status: Baseline
[2022-03-21 14:17] LABS: WBC Peritoneal Fluid 239 /uL
[2022-03-21 14:18] LABS: RBC Pertioneal Fluid 208 10^3/uL
[2022-03-21] MEDS: diphenhydrAMINE 50 mg/mL SDV 1mL 12.5 MG IVP (14:38)
== END | disposition home or self-care (01) ==
PROVIDERS: PCP Family Medicine; Visit Provider Obstetrics & Gynecology
PROC: (CPT 58662; principal; 2022-03-21 09:55)
DX: N83.202 Unspecified ovarian cyst, left side (principal); N73.6 Female pelvic peritoneal adhesions (postinfective); R10.2 Pelvic and perineal pain; G89.29 Other chronic pain
CPT/HCPCS: 58662; 80053; 80503; 81003; 81025; 85025; 86850; 86900; 89050; J1100; J1170; J1200; J2405; J2704; J2710; J3010; J3490; J7030; J7040

== ENCOUNTER 2022-05-02 12:35 | Outpatient (CLI) | payer MEDICAID, SELFPAY ==
--- NOTE | 2022-05-02 13:13 | MM_ITS ---
WS: [id number] BILATERAL 3D TOMOSYNTHESIS DIGITAL SCREENING MAMMOGRAPHY WITH CAD CLINICAL INFORMATION: SCREENING HISTORY: Screening mammogram. No current complaints. COMPARISON: TECHNIQUE: Bilateral CC and MLO views. FINDINGS: Scattered fibroglandular densities bilaterally. No suspicious focal mass, asymmetry, calcifications, or architectural distortion. No evidence of malignancy. MM/[place] [id number] IMPRESSION: BI-RADS: 2-Benign FOLLOW UP: 1 Year Follow-up Recommend return to annual screening mammography.
== END 2022-05-02 12:36 | disposition home or self-care (01) ==
LOC: RAD 12:35
PROVIDERS: PCP Family Medicine; Visit Provider Obstetrics & Gynecology
DX: Z12.31 Encounter for screening mammogram for malignant neoplasm of breast (principal)
CPT/HCPCS: 77063; 77067

== ENCOUNTER → 2022-05-29 16:13 | Outpatient (BNVA) | payer MEDICAID, SELFPAY | PROVIDERS: PCP Family Medicine; Visit Provider Emergency Medicine | DX: J02.9 Acute pharyngitis, unspecified (principal); R11.10 Vomiting, unspecified | CPT/HCPCS: 87071; 87880 ==

== ENCOUNTER → 2022-05-30 11:43 | Outpatient (BNVA) | payer MEDICAID, SELFPAY | PROVIDERS: PCP Family Medicine; Visit Provider Family Medicine | DX: R13.10 Dysphagia, unspecified (principal); J38.6 Stenosis of larynx; J98.8 Other specified respiratory disorders | CPT/HCPCS: 80053; 85025 ==

== ENCOUNTER 2022-05-31 09:40 | Outpatient (CLI) | payer MEDICAID, SELFPAY ==
--- NOTE | 2022-05-31 10:00 | CT_ITS ---
WS: [id number] CT NECK TECHNIQUE: Noncontrast and Contrast-enhanced CT of the neck with coronal and sagittal reformatted anabela ges. CLINICAL INFORMATION: Airway/Esophageal obstruction COMPARISON: None. DLP: 532.[address] scans at [facility] use at least one of these dose optimization techniques: automated e xposure control; mA and/or kV adjustment per patient size (includes targeted exams where dose is matc hed to clinical indication); or iterative reconstruction. FINDINGS:Dental artifact degrades some images at the tongue base. Visualized paranasal sinuses and mastoid air cells are well aerated. Normal parotid glands. Normal armijo bmandibular glands. Normal posterior nasopharynx. Normal parapharyngeal fat. No evidence of supraglottic or glottic mass. Subglottic airway is normal. Normal thyroid gland. Lung apices are normal. Partially visualized intracranial contents are normal. Straightening of the normal cervical lordosis. Normal craniocervical junction. No cervical lymphadenopathy. CT/CT neck wo/w con [id number] IMPRESSION: 1. Normal posterior nasopharynx. No evidence of supraglottic or glottic mass. Subglottic airway is patent. 2. No evidence of laryngeal or pharyngeal narrowing. 3. Normal salivary glands. 4. No cervical lymphadenopathy. 5. No other remarkable findings.
[2022-05-31] MEDS: iohexol 350 mg/mL 100 mL Btl IV (12:04)
== END 2022-05-31 09:41 | disposition home or self-care (01) ==
LOC: RAD 09:42
PROVIDERS: PCP Family Medicine; Visit Provider Surgery
DX: J38.6 Stenosis of larynx (principal); J98.8 Other specified respiratory disorders; R13.10 Dysphagia, unspecified; R19.7 Diarrhea, unspecified; R63.4 Abnormal weight loss; R11.0 Nausea
CPT/HCPCS: 70492; 99203

== ENCOUNTER 2022-06-05 05:42 | Day surgery (SDC) | payer MEDICAID, SELFPAY ==
[2022-06-03 14:45] VITALS: BMI 27.4
--- NOTE | 2022-06-05 06:08 | P.HPUD_ITS ---
Surgery/Procedure H&P Update DATE OF PROCEDURE: June 05, 2022 DATE H&P PERFORMED: 03/15/22 PREOP DIAGNOSIS: dysphagia PLANNED PROCEDURE: Operation Date: 06/05/22 07:00 Proposed Procedures p [address]71 EGD w/ balloon dial [id number] Colon(Not Applicable) - DO martha Whitlock Colonoscopy(Not Applicable) - Hemanth Ho DO
--- NOTE | 2022-06-05 06:08 | W.PM.OPSUD ---
Surgery/Procedure H&P Update DATE OF PROCEDURE: June 05, 2022 DATE H&P PERFORMED: 03/15/22 PREOP DIAGNOSIS: dysphagia PLANNED PROCEDURE: Operation Date: 06/05/22 07:00 Proposed Procedures p 20366 EGD w/ balloon dial 61110 Colon(Not Applicable) - DO martha Whitlock Colonoscopy(Not Applicable) - Hemanth Ho DO
[2022-06-05] MEDS: sodium chloride 0.9% 1,000 ML 30 ML IV (06:33)
[2022-06-05 06:35] VITALS: BP 116/80; PULSE 98; RESP 18; TEMP 36.1; O2SAT 98
[2022-06-05] MEDS: ondansetron 2 mg/ML SDV 2 mL 4 MG IVP (06:43)
--- NOTE | 2022-06-05 07:00 | ANES.PREANE2 ---
Pre-Anesthetic Assessment Height/Weight: Height 1.68 m Weight 77.111 kg Temp Pulse Resp BP Pulse Ox O2 Del Method 97 F L 98 18 116/80 98 06/05/22 06:35 06/05/22 06:35 06/05/22 06:35 06/05/22 06:35 06/05/22 06:35 06/05/22 06:35 Preop Diagnosis: dysphagia Operation Date: 06/05/22 07:00 Proposed Procedures p 20249 EGD w/ balloon dial 45502 Colon(Not Applicable) - DO martha Whitlock Colonoscopy(Not Applicable) - Hemanth Ho DO Familial anesthetic complications: none Was Beta Mari taken within 24 hours: N/A Was Clonidine taken within 24 hours: N/A Last intake: Intake Last Liquid Date 06/04/22 Last Liquid Time 22:00 Last Solid Date 06/03/22 Last Solid Time 18:00 Last Intake: 22:00 Social No alcohol and No tobacco Exam alert and oriented x 3 Airway Submandibular: within normal limits Cervical ROM: within normal limits Mallampati: Class II Dentition: full History/ROS No significant history except as noted Pulmonary None reported CV/HEM None reported None reported Hepatic None reported GI Gastroesophageal Reflux Disease Metabolic Thyroid Disease [facility] [place] None reported Neuropsych None reported Anesthetic Plan ASA status: 2 Anesthesia: Anesthesia Evaluation and MAC Medications/Allergies Home Medications Medication Instructions Recorded Confirmed Last Taken Type promethazine 25 mg tablet 25 mg PO TID PRN nausea and 04/03/22 06/03/22 06/04/22 Rx vomiting #90 tabs levothyroxine 75 mcg tablet 75 mcg PO DAILY #90 tabs 04/29/22 06/03/22 06/03/22 Rx (Synthroid) triamcinolone acetonide 0.1 % 1 applic topical BID #15 grams 04/29/22 06/03/22 06/03/22 Rx topical cream semaglutide 0.25 mg or 0.5 mg (2 See Rx Instructions SUBCUT 05/15/22 06/03/22 06/03/22 Rx mg/1.5 mL) subcutaneous pen .COMPLEX #1.5 mL injector (Ozempic) pantoprazole 40 mg tablet,delayed 40 mg PO BID 6 weeks #84 tabs 05/31/22 06/03/22 06/03/22 Rx release (Protonix) Allergies Allergy/AdvReac Type Severity Reaction Status Date / Time No Known Allergies Allergy Verified 05/31/22 13:17 Current Medications Generic Name Dose Route Start Last Admin Trade Name Freq PRN Reason Stop Dose Admin Sodium Chloride 1,000 mls @ 30 mls/hr 06/05/22 06:00 06/05/22 06:33 Sodium Chloride 0.9% IV 06/06/22 05:59 30 mls/hr .Q24H ELIDIA Administration Ondansetron HCl 4 mg 06/05/22 05:50 06/05/22 06:43 Ondansetron 2 Mg/Ml Sdv 2 Ml IVP 4 mg Q5M PRN Administration NAUSEA AND VOMITING PFSH Anesthesia Medical History Aftercare following surgery of the genitourinary system B12 deficiency Cervical intraepithelial neoplasia grade 2 GERD without esophagitis Hypothyroid Morbid obesity (~04/2020) Visual changes Surgical History H/O hernia repair repair of hiatal hernia History of abdominal hysterectomy 09/04/2016- Performed per Dr. Howell @ [facility] due to AUB and cancerous cells. History of delivery 1993-Performed in [place] 1995-Performed in [place] History of gastric bypass History of right salpingo-oophorectomy laparoscopic right ovarian cystectomy and right salpingectomy- oophorectomy performed by Dr. Howell on 06/21/2020 at [facility] History of surgery for acute abdominal pain History of tubal ligation 1995- Performed in [place] Hx of laparoscopy (~03/21/22) Diagnostic laparoscopy, Laparoscopic lysis of adhesions, Laparoscopic cystectomy performed by Dr. Howell at [facility] Family History Sister Diabetes Grandmother Diabetes maternal Stroke maternal Hypertension maternal Breast cancer maternal Family/Other Colon cancer maternal aunt Stroke maternal aunts and maternal uncles Mother Hypertension Denies family history of Ovarian cancer Clotting disorder Heart disease Hyperlipidemia Anesthesia complication Bleeding disorder Uterine cancer Thyroid condition Social History Smoking and tobacco status: never smoked Alcohol intake: former Year of sobriety/quit date alcohol: 2019 Female Reproductive History Date of last menstrual period: 04/23/17 Spontaneous abortions: No Data Anesthesia Cardiac Studies: No Data to Display
[2022-06-05 07:28] VITALS: BP 107/77; PULSE 105; RESP 16; TEMP 36.1; O2SAT 98
[2022-06-05 07:37] VITALS: BP 117/75; PULSE 99; RESP 16; O2SAT 99
[2022-06-05 07:47] VITALS: BP 116/77; PULSE 100; RESP 16; O2SAT 100
--- NOTE | 2022-06-05 08:04 | ANE.PACU2 ---
Inpatient post-anesthesia follow up: Airway intact: Yes Vital signs: Temperature 97.0 F Pulse Rate 100 Respiratory Rate 16 Blood Pressure 116/77 Pulse Oximetry 100 Oxygen Delivery Me thod Room Air Oxygen Flow Rate Fraction of Inspir ed Oxygen Hydration adequate: Yes Nausea and vomiting: No Pain level: 1 Mental status: Baseline
== END 2022-06-05 08:12 | disposition home or self-care (01) ==
PROVIDERS: PCP Family Medicine; Visit Provider Surgery
PROC: 0DJD8ZZ Inspection of Lower Intestinal Tract, Via Natural or Artificial Opening Endoscopic (ICD-10-PCS; CPT 45378; 2022-06-05 07:00)
DX: R13.10 Dysphagia, unspecified (principal); K29.50 Unspecified chronic gastritis without bleeding; B96.81 Helicobacter pylori [H. pylori] as the cause of diseases classified elsewhere; K21.9 Gastro-esophageal reflux disease without esophagitis; E03.9 Hypothyroidism, unspecified; E66.01 Morbid (severe) obesity due to excess calories; Z68.27 Body mass index [BMI] 27.0-27.9, adult
CPT/HCPCS: 43239; 45378; 88305; 88342; 96374; J2405; J2704; J7030

== ENCOUNTER → 2022-06-25 10:36 | Outpatient (BNVA) | payer MEDICAID, SELFPAY | PROVIDERS: PCP Family Medicine; Visit Provider Surgery | DX: K29.70 Gastritis, unspecified, without bleeding (principal); B96.81 Helicobacter pylori [H. pylori] as the cause of diseases classified elsewhere | CPT/HCPCS: 99212 ==

== ENCOUNTER → 2022-10-16 10:00 | Outpatient (BNVA) | payer MEDICAID, SELFPAY | PROVIDERS: PCP Family Medicine; Visit Provider Family Medicine | DX: E03.9 Hypothyroidism, unspecified (principal) | CPT/HCPCS: 84443 ==

== ENCOUNTER → 2023-02-18 16:10 | Outpatient (BNVA) | payer MEDICAID, SELFPAY | PROVIDERS: PCP Family Medicine; Visit Provider Family Medicine | DX: B37.9 Candidiasis, unspecified (principal) | CPT/HCPCS: 81000 ==

== ENCOUNTER 2023-05-05 16:46 | Inpatient (IN) | payer MEDICAID, SELFPAY ==
[2023-05-05 16:50] VITALS: BP 143/85; PULSE 92; RESP 17; TEMP 36.7; O2SAT 98; BMI 22.2
--- NOTE | 2023-05-05 16:54 | ECG_ITS ---
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 Measurements Intervals [place] Rate: 86 P: 58 [place]: 156 QRS: 81 QRSD: 82 T: 62 QT: 348 QTc: 416 Interpretive Statements SINUS RHYTHM Compared to ECG 09/03/2020 22:11:12 No significant changes Electronically Signed On 05-05-2023 19:33:35 CDT by Zain Alejandra M.D. [email or web address] [facility]mer[facility] biloxiScoot Networksmarietta osteopathic clinicHappy Bits Company/store/NU/[id number] f
--- NOTE | 2023-05-05 17:00 | XRR_ITS ---
PROCEDURE INFORMATION: Exam: XR Chest Exam date and time: 05/05/2023 5:17 PM Age: 48 years old Clinical indication: Other: Lt sided weakness; Additional info: Dyspnea/cough TECHNIQUE: Imaging protocol: Radiologic exam of the chest. Views: 1 view. COMPARISON: CR XR chest 2V* [id number] 07/07/2019 7:46 PM FINDINGS: Lungs: Unremarkable. No consolidation. Pleural spaces: Unremarkable. No pleural effusion. No pneumothorax. Heart/Mediastinum: Unremarkable. No cardiomegaly. Bones/joints: Unremarkable. XR/XR chest 1V portable [id number] IMPRESSION: No acute findings.
--- NOTE | 2023-05-05 17:00 | CTR_ITS ---
PROCEDURE INFORMATION: Exam: CT Head Without Contrast Exam date and time: 05/05/2023 5:39 PM Age: 48 years old Clinical indication: Pain; Weakness, extremity; Left; Headache; Additional info: Weakness, base of skull pain, left sided shoulder/neck pain TECHNIQUE: Imaging protocol: Computed tomography of the head without contrast. Radiation optimization: All CT scans at this facility use at least one of these dose optimization techniques: automated exposure control; mA and/or kV adjustment per patient size (includes targeted exams where dose is matched to clinical indication); or iterative reconstruction. REPORTING DATA: Count of CT and Cardiac NM exams in prior 12 months: This patient has received [address] and 0 known cardiac nuclear medicine studies in the 12 months prior to the current study. COMPARISON: MR head wo con* [id number] 07/09/2021 7:56 AM RADIATION DOSE METRICS: Total DLP (mGy-cm): 1137.52 FINDINGS: Brain: No hemorrhage. No edema. No significant white matter disease. No mass effect. Cerebral ventricles: No ventriculomegaly. Paranasal sinuses: Visualized sinuses are unremarkable. No fluid levels. Mastoid air cells: Visualized mastoid air cells are well aerated. Bones/joints: Unremarkable. No acute fracture. Soft tissues: Unremarkable. CT/CT head wo con* [id number] IMPRESSION: No acute intracranial abnormality.
--- NOTE | 2023-05-05 17:04 | W.ED.WEAKNES ---
Documented by User: Kaden Rojas DO 05/06/23 06:00 HPI - Weakness General: Chief complaint: Weakness Stated complaint: left sided numbness Time Seen by Provider: 05/05/23 16:59 Source: patient Mode of arrival: ambulatory History of Present Illness: 48-year-old female presents emergency room complaining of numbness and tingling in her left arm. COVID with pain in her arm radiating down her fingers. She also feels a weird sensation on the left side of her face. She had no difficulty with speech, vision or swallowing. Began this afternoon and there is no trauma to her head or neck she is not on any blood thinners. No difficulty breathing. This all began around 1:00 today. Is also accompanied by headache. She is also complaining of facial discomfort with an odd sensation on the left side of the tip of her tongue across her left cheek and temporal area earlier today she had a little bit of ear pain. She is also complaining of pain that radiates from the occipital area up over the top of her scalp on the left side. MD Complaint: generalized weakness, numbness and tingling Onset (ago): hour(s) Duration: constant and progressively worsening Location: LUE and face (Left) Severity: moderate Quality: tingling and numbness Relieving factors: none Exacerbating factors: none Associated symptoms: Denies chest pain, chills, dysuria or fever(s) Review of Systems Const: Denies: fever(s) or chills Card: Denies: chest pain Resp: Denies: dyspnea GI: Denies: abdominal pain : Denies: dysuria, urinary frequency or urinary urgency Musc: Denies: neck pain or back pain Skin/Breast: Denies: rash PFSH ED PFSH: Medical History Aftercare following surgery of the genitourinary system B12 deficiency Cervical intraepithelial neoplasia grade 2 GERD without esophagitis Helicobacter pylori gastritis Hypothyroid Morbid obesity (~04/2020) Visual changes Surgical History H/O hernia repair repair of hiatal hernia History of abdominal hysterectomy 09/04/2016- Performed per Dr. Howell @ [facility] due to AUB and cancerous cells. History of delivery 1993-Performed in [place] 1995-[place] History of gastric bypass History of right salpingo-oophorectomy laparoscopic right ovarian cystectomy and right salpingectomy- oophorectomy performed by Dr. Howell on 06/21/2020 at [facility] History of surgery for acute abdominal pain History of tubal ligation 1995- Performed in [place] Hx of laparoscopy (~03/21/22) Diagnostic laparoscopy, Laparoscopic lysis of adhesions, Laparoscopic cystectomy performed by Dr. Howell at [facility] Family History Sister Diabetes Grandmother Diabetes maternal Stroke maternal Hypertension maternal Breast cancer maternal Family/Other Colon cancer maternal aunt Stroke maternal aunts and maternal uncles Mother Hypertension Denies family history of Ovarian cancer Clotting disorder Heart disease Hyperlipidemia Anesthesia complication Bleeding disorder Uterine cancer Thyroid condition Social History Smoking and tobacco status: never smoked Alcohol intake: former Year of sobriety/quit date alcohol: 2019 Substance/Drug Use: never Female Reproductive History: Spontaneous abortions: No Physical Exam Const: GENERAL APPEARANCE: cooperative and comfortable ORIENTATION/CONSCIOUSNESS: Yes awake, Yes oriented to person, Yes oriented to place and Yes oriented to time HENMT: COMMON NORMALS: normocephalic, atraumatic and hearing grossly normal bilaterally HEAD & SCALP: normocephalic and atraumatic Resp: COMMON NORMALS: normal respiratory effort, No retractions, No use of accessory muscles and clear to auscultation bilaterally AUSCULTATION: clear to auscultation bilaterally Cardio: COMMON NORMALS: regular rate, regular rhythm and No murmurs present (Cardio) RATE: regular rate RHYTHM: regular rhythm GI: COMMON NORMALS: Soft to palpation and No hepatosplenomegaly present AUSCULTATION: Yes normoactive bowel sounds PALPATION: Yes Soft to palpation, No Tenderness to palpation present (GI), No Guarding due to palpation present (GI) and Yes No hepatosplenomegaly present Extremity: COMMON NORMALS: normal to inspection, capillary refill normal, no clubbing, cyanosis or edema, no calf tenderness and no pedal edema Neuro: SENSORIUM/ORIENTATION: Yes oriented to person, Yes oriented to place and Yes oriented to time COORDINATION/BALANCE: [id number]-[id number] test normal and [id number]-[id number] test normal COORDINATION: nddmop-lw-kcwy test normal and yrtp-aa-swck test normal OTHER: Left radicular arm pain worsened by movement in the neck. Skin: COMMON NORMALS: no rashes or lesions noted GENERAL SKIN EXAM: no rashes or lesions noted Course Vital Signs: Vital signs: Vital Signs Temperature 98.2 F 05/06/23 03:12 Pulse Rate 99 05/06/23 03:12 Respiratory Rate 17 05/06/23 03:12 Blood Pressure 88/55 05/06/23 03:12 Pulse Oximetry 96 05/06/23 03:12 Oxygen Delivery Me thod Room Air 05/06/23 03:12 MDM - Weakness Medical Decision Making Care signed out to Dr. Bentley at change of shift. See final notes for diagnosis and disposition. Medical Records I reviewed the patient's medical records. Lab Data I reviewed the patient's lab results. 05/05/23 17:18 05/05/23 17:18 Radiology Impressions Chest X-Ray 05/05/23 17:00 IMPRESSION: No acute findings. Head CT 05/05/23 17:00 IMPRESSION: No acute intracranial abnormality. Cervical Spine CT 05/05/23 17:09 IMPRESSION: No acute findings. Head/Neck CTA 05/05/23 20:57 IMPRESSION: No large vessel stenosis or occlusion. IMPRESSION: No stenosis or occlusion. REFERENCES: NASCET CRITERIA. The degree of stenosis in the cervical segment of the internal carotid artery is based on NASCET criteria. Normal is no stenosis. Mild is less than 50% stenosis. Moderate is 50-69% stenosis. Severe is 70% to 99% stenosis. Total occlusion is no detectable patent lumen. Laboratory Results WBC 6.52 10^3/uL (3.29-11.43) 05/05/23 17:18 RBC 4.57 10^6/uL (3.85-5.65) 05/05/23 17:18 Hgb 13.80 g/dL (11.27-16.99) 05/05/23 17:18 Hct 41.6 % (36-47) 05/05/23 17:18 MCV 91.0 fl (85-98) 05/05/23 17:18 MCH 30.2 pg (27-33) 05/05/23 17:18 MCHC 33.2 g/dL (30-55) 05/05/23 17:18 RDW 12.4 % (12.1-15.1) 05/05/23 17:18 Plt Count 197 10^3/cmm (157-399) 05/05/23 17:18 MPV 10.7 fL (7.4-10.4) H 05/05/23 17:18 Neut % (Auto) 57.6 % 05/05/23 17:18 Lymph % (Auto) 34.0 % 05/05/23 17:18 Gulf % (Auto) 6.7 % 05/05/23 17:18 Eos % (Auto) 1.2 % 05/05/23 17:18 Baso % (Auto) 0.2 % 05/05/23 17:18 Neut # (Auto) 3.75 10^3/uL (1.8-7.7) 05/05/23 17:18 Lymph # (Auto) 2.2 10^3/uL (0.8-4.8) 05/05/23 17:18 Gulf # (Auto) 0.4 10^3/uL (0.2-0.9) 05/05/23 17:18 Eos # (Auto) 0.1 10^3/uL (0.0-0.8) 05/05/23 17:18 Baso # (Auto) 0.0 10^3/uL (0.0-0.1) 05/05/23 17:18 Nucleated RBC % (auto) 0 % 05/05/23 17:18 Nucleated RBCs # 0.0 /100WBC 05/05/23 17:18 Sodium 136 mmol/L (136-145) 05/05/23 17:18 Potassium 3.8 mmol/L (3.5-5.1) 05/05/23 17:18 Chloride 103 mmol/L (98-107) 05/05/23 17:18 Carbon Dioxide 22 mmol/L (22-29) 05/05/23 17:18 Anion Gap 14.8 (5-19) 05/05/23 17:18 BUN 13 mg/dL (6-20) 05/05/23 17:18 Creatinine 0.7 mg/dL (0.5-0.9) 05/05/23 17:18 GFR Calculation 88.9 mL/min (90-130) L 05/05/23 17:18 Glucose 84 mg/dL (65-115) 05/05/23 17:18 Calculated Osmolality 281 mOsm/kg (285-295) L 05/05/23 17:18 Calcium 9.1 mg/dL (8.5-10.5) 05/05/23 17:18 Total Bilirubin 0.3 mg/dL (0.15-1.2) 05/05/23 17:18 AST 17 U/L (0-32) 05/05/23 17:18 ALT 15 U/L (0-33) 05/05/23 17:18 Alkaline Phosphatase 74 U/L (35-105) 05/05/23 17:18 Troponin T Baseline < 6 ng/L (0-10) 05/05/23 17:18 Troponin T 120 Minute 6.0 ng/L (0-10) 05/05/23 19:20 Delta Troponin T 0.77676 ABS# (0-10) 05/05/23 19:20 Total Protein 6.9 g/dL (6.6-8.7) 05/05/23 17:18 Albumin 4.2 g/dL (3.5-5.2) 05/05/23 17:18 Globulin 2.7 g/dL (1.3-4.6) 05/05/23 17:18 Folate 8.7 ng/mL (4.8-37.3) 05/05/23 22:32 Urine Color Yellow (Yellow) 05/05/23 18:05 Urine Appearance Sl hazy (CLEAR) A 05/05/23 18:05 Urine pH 5 (5-7) 05/05/23 18:05 Ur Specific [place] 1.020 (1.005-1.030) 05/05/23 18:05 Urine Protein Neg (Negative) 05/05/23 18:05 Urine Glucose (UA) Norm (Normal) 05/05/23 18:05 Urine Ketones 1+ (Negative) H 05/05/23 18:05 Urine Blood Neg (Negative) 05/05/23 18:05 Urine Nitrate Negative (Negative) 05/05/23 18:05 Urine Bilirubin Neg (Negative) 05/05/23 18:05 Urine Urobilinogen 1 mg/dL (Negative) H 05/05/23 18:05 Ur Leukocyte Esterase Trace (Negative) H 05/05/23 18:05 Urine RBC 0-4 /hpf (0-2) H 05/05/23 18:05 Urine WBC 15-25 /hpf (0-5) H 05/05/23 18:05 Ur Squamous Epith Cells 25-40 /hpf (0-5) H 05/05/23 18:05 Amorphous Sediment Not Reportable 05/05/23 18:05 Urine Bacteria 2+ /hpf (NONE) H 05/05/23 18:05 Discharge Plan Discharge Patient Disposition: Placed in Observation Admit Provider: Beverley Jean Clinical Impression: Paresthesia, Radiculopathy affecting upper extremity, History of gastric bypass Hypothyroidism Qualifiers: Hypothyroidism type: unspecified Qualified Code(s): E03.9 - Hypothyroidism, unspecified Coding Level of Care Code ED Pre Kindergarten Teacher for Chg Fwd NIH stroke score NIHSS Level Of Consciousness - 1a: 0 Level Of Consciousness Questions - 1b: Both Correct Level Of Consciousness Commands - 1c: Both Correct Best Gaze - 2: Normal Visual Melissa - 3: No Visual Loss Facial Palsy - 4: Normal Motor Arm Right - 5: No Drift Motor Arm Left - 5: No Drift Motor Leg Right - 6: No Drift Motor Leg Left - 6: No Drift Limb Ataxia - 7: Absent Sensory - 8: Mild To Moderate Loss Best Language - 9: No Aphasia Dysarthia - 10: Normal Extinction And Inattention - 11: 0 Score Total Score: 1 Documented by User: Da Bentley DO 05/05/23 23:15 HPI - Weakness General: Chief complaint: Weakness Stated complaint: left sided numbness Time Seen by Provider: 05/05/23 16:59 PFSH ED PFSH: Medical History Aftercare following surgery of the genitourinary system B12 deficiency Cervical intraepithelial neoplasia grade 2 GERD without esophagitis Helicobacter pylori gastritis Hypothyroid Morbid obesity (~04/2020) Visual changes Surgical History H/O hernia repair repair of hiatal hernia History of abdominal hysterectomy 09/04/2016- Performed per Dr. Howell @ [facility] due to AUB and cancerous cells. History of delivery 1993-Performed in [place], [place] 1995-[place] History of gastric bypass History of right salpingo-oophorectomy laparoscopic right ovarian cystectomy and right salpingectomy- oophorectomy performed by Dr. Howell on 06/21/2020 at [facility] History of surgery for acute abdominal pain History of tubal ligation 1995- Performed [place] Hx of laparoscopy (~03/21/22) Diagnostic laparoscopy, Laparoscopic lysis of adhesions, Laparoscopic cystectomy performed by Dr. Howell at [facility] Family History Sister Diabetes Grandmother Diabetes maternal Stroke maternal Hypertension maternal Breast cancer maternal Family/Other Colon cancer maternal aunt Stroke maternal aunts and maternal uncles Mother Hypertension Denies family history of Ovarian cancer Clotting disorder Heart disease Hyperlipidemia Anesthesia complication Bleeding disorder Uterine cancer Thyroid condition Social History Smoking and tobacco status: never smoked Alcohol intake: former Year of sobriety/quit date alcohol: 2019 Substance/Drug Use: never Course Vital Signs: Vital signs: Vital Signs Temperature 98.2 F 05/06/23 03:12 Pulse Rate 99 05/06/23 03:12 Respiratory Rate 17 05/06/23 03:12 Blood Pressure 88/55 05/06/23 03:12 Pulse Oximetry 96 05/06/23 03:12 Oxygen Delivery Me thod Room Air 05/06/23 03:12 MDM - Weakness Medical Decision Making Care signed out to Dr. Bentley at change of shift. See final notes for diagnosis and disposition. Lab work was reviewed as well as chest x-ray head CT cervical spine CT all findings which were negative. Dr. Perea was consulted and the case was discussed with him extensively. He said the patient may have something such as a right thalamic stroke or pain or paroxysmal hemicrania. CT angiogram of the head and neck was obtained which was negative. We will check methylmalonic acid, B12, folate. We will give the patient 100 mg of Vimpat IV every [address] patient in observation. We have put orders in for a head MRI without contrast to be done for second morning. Dr. Perea will see the patient for follow-up tomorrow. These findings was discussed with the patient and the patient is agreeable. was notified and is agreeable to admit the patient to observation and will follow from a medical standpoint. Lab Data 05/05/23 17:18 05/05/23 17:18 Radiology Impressions Chest X-Ray 05/05/23 17:00 IMPRESSION: No acute findings. Head CT 05/05/23 17:00 IMPRESSION: No acute intracranial abnormality. Cervical Spine CT 05/05/23 17:09 IMPRESSION: No acute findings. Head/Neck CTA 05/05/23 20:57 IMPRESSION: No large vessel stenosis or occlusion. IMPRESSION: No stenosis or occlusion. REFERENCES: NASCET CRITERIA. The degree of stenosis in the cervical segment of the internal carotid artery is based on NASCET criteria. Normal is no stenosis. Mild is less than 50% stenosis. Moderate is 50-69% stenosis. Severe is 70% to 99% stenosis. Total occlusion is no detectable patent lumen. Laboratory Results WBC 6.52 10^3/uL (3.29-11.43) 05/05/23 17: RBC 4.57 10^6/uL (3.85-5.65) 05/05/23 17:18 Hgb 13.80 g/dL (11.27-16.99) 05/05/23 17:18 Hct 41.6 % (36-47) 05/05/23 17:18 MCV 91.0 fl (85-98) 05/05/23 17:18 MCH 30.2 pg (27-33) 05/05/23 17:18 MCHC 33.2 g/dL (30-55) 05/05/23 17:18 RDW 12.4 % (12.1-15.1) 05/05/23 17:18 Plt Count 197 10^3/cmm (157-399) 05/05/23 17:18 MPV 10.7 fL (7.4-10.4) H 05/05/23 17:18 Neut % (Auto) 57.6 % 05/05/23 17:18 Lymph % (Auto) 34.0 % 05/05/23 17:18 Gulf % (Auto) 6.7 % 05/05/23 17:18 Eos % (Auto) 1.2 % 05/05/23 17:18 Baso % (Auto) 0.2 % 05/05/23 17:18 Neut # (Auto) 3.75 10^3/uL (1.8-7.7) 05/05/23 17:18 Lymph # (Auto) 2.2 10^3/uL (0.8-4.8) 05/05/23 17:18 Gulf # (Auto) 0.4 10^3/uL (0.2-0.9) 05/05/23 17:18 Eos # (Auto) 0.1 10^3/uL (0.0-0.8) 05/05/23 17:18 Baso # (Auto) 0.0 10^3/uL (0.0-0.1) 05/05/23 17:18 Nucleated RBC % (auto) 0 % 05/05/23 17:18 Nucleated RBCs # 0.0 /100WBC 05/05/23 17:18 Sodium 136 mmol/L (136-145) 05/05/23 17:18 Potassium 3.8 mmol/L (3.5-5.1) 05/05/23 17:18 Chloride 103 mmol/L (98-107) 05/05/23 17:18 Carbon Dioxide 22 mmol/L (22-29) 05/05/23 17:18 Anion Gap 14.8 (5-19) 05/05/23 17:18 BUN 13 mg/dL (6-20) 05/05/23 17:18 Creatinine 0.7 mg/dL (0.5-0.9) 05/05/23 17:18 GFR Calculation 88.9 mL/min (90-130) L 05/05/23 17:18 Glucose 84 mg/dL (65-115) 05/05/23 17:18 Calculated Osmolality 281 mOsm/kg (285-295) L 05/05/23 17:18 Calcium 9.1 mg/dL (8.5-10.5) 05/05/23 17:18 Total Bilirubin 0.3 mg/dL (0.15-1.2) 05/05/23 17:18 AST 17 U/L (0-32) 05/05/23 17:18 ALT 15 U/L (0-33) 05/05/23 17:18 Alkaline Phosphatase 74 U/L (35-105) 05/05/23 17:18 Troponin T Baseline < 6 ng/L (0-10) 05/05/23 17:18 Troponin T 120 Minute 6.0 ng/L (0-10) 05/05/23 19:20 Delta Troponin T 0.84656 ABS# (0-10) 05/05/23 19:20 Total Protein 6.9 g/dL (6.6-8.7) 05/05/23 17:18 Albumin 4.2 g/dL (3.5-5.2) 05/05/23 17:18 Globulin 2.7 g/dL (1.3-4.6) 05/05/23 17:18 Folate 8.7 ng/mL (4.8-37.3) 05/05/23 22:32 Urine Color Yellow (Yellow) 05/05/23 18:05 Urine Appearance Sl hazy (CLEAR) A 05/05/23 18:05 Urine pH 5 (5-7) 05/05/23 18:05 Ur Specific [place] 1.020 (1.005-1.030) 05/05/23 18:05 Urine Protein Neg (Negative) 05/05/23 18:05 Urine Glucose (UA) Norm (Normal) 05/05/23 18:05 Urine Ketones 1+ (Negative) H 05/05/23 18:05 Urine Blood Neg (Negative) 05/05/23 18:05 Urine Nitrate Negative (Negative) 05/05/23 18:05 Urine Bilirubin Neg (Negative) 05/05/23 18:05 Urine Urobilinogen 1 mg/dL (Negative) H 05/05/23 18:05 Ur Leukocyte Esterase Trace (Negative) H 05/05/23 18:05 Urine RBC 0-4 /hpf (0-2) H 05/05/23 18:05 Urine WBC 15-25 /hpf (0-5) H 05/05/23 18:05 Ur Squamous Epith Cells 25-40 /hpf (0-5) H 05/05/23 18:05 Amorphous Sediment Not Reportable 05/05/23 18:05 Urine Bacteria 2+ /hpf (NONE) H 05/05/23 18:05 All radiology interpretation(s) finalized by discharge EKG Data EKG 1: I personally reviewed and interpreted this EKG as follows: EKG interpretation date: 05/05/23 EKG interpretation time: 19:08 Prior EKG tracings: not available for review Interpretation: EKG showed ventricular rate 84 beats minute, MS interval 170, QRS duration 77, QTc of 400, sinus rhythm, no ST-T wave changes EKG 2: I personally reviewed and interpreted this EKG as follows: EKG interpretation date: 05/05/23 EKG interpretation time: 22:51 Prior EKG tracings: available for review Interpretation: EKG showed ventricular rate 88 bpm, MS interval 175, QRS duration 84, sinus rhythm, no ST-T wave changes Discharge Plan Discharge Patient Disposition: Placed in Observation Admit Provider: Beverley Jean Clinical Impression: Paresthesia, Radiculopathy affecting upper extremity, History of gastric bypass Hypothyroidism Qualifiers: Hypothyroidism type: unspecified Qualified Code(s): E03.9 - Hypothyroidism, unspecified Coding Level of Care Code ED Pre Kindergarten Teacher for Moreliag Sarthak NIH stroke score Score Total Score: 1
--- NOTE | 2023-05-05 17:09 | CTR_ITS ---
PROCEDURE INFORMATION: Exam: CT Cervical Spine Without Contrast Exam date and time: 05/05/2023 5:39 PM Age: 48 years old Clinical indication: Neck pain; Additional info: Cervical radiculopathy TECHNIQUE: Imaging protocol: Computed tomography of the cervical spine without contrast. Radiation optimization: All CT scans at this facility use at least one of these dose optimization techniques: automated exposure control; mA and/or kV adjustment per patient size (includes targeted exams where dose is matched to clinical indication); or iterative reconstruction. REPORTING DATA: Count of CT and Cardiac NM exams in prior 12 months: This patient has received [address] and 0 known cardiac nuclear medicine studies in the 12 months prior to the current study. COMPARISON: CR XR cervical spine 3V* [id number] 03/02/2019 12:05 AM RADIATION DOSE METRICS: Total DLP (mGy-cm): 145.6 FINDINGS: Bones/joints: No acute fracture. Normal alignment. No significant disc bulge or herniation. No severe spinal canal stenosis. No significant neural foraminal narrowing. Lungs: Lung apices are normal. Soft tissues: Unremarkable. CT/CT cervical spin wo con* [id number] IMPRESSION: No acute findings.
[2023-05-05] MEDS: dexamethasone 10 mg/mL INJ IM (17:23)
[2023-05-05 17:31] LABS: Basophils % 0.2 %; Eosinophils # 0.1 10^3/uL (0.0-0.8); Eosinophils % 1.2 %; Hematocrit 41.6 % (36-47); Lymphocytes # 2.2 10^3/uL (0.8-4.8); Mean Corpuscular HGB Conc 33.2 g/dL (30-55); Mean Corpuscular Hemoglobin 30.2 pg (27-33); Mean Platelet Volume 10.7 fL (7.4-10.4); Monocytes # 0.4 10^3/uL (0.2-0.9); Monocytes % 6.7 %; Neutrophils # 3.75 10^3/uL (1.8-7.7); Neutrophils % 57.6 %; Nucleated Red Blood Cells % 0 %; Platelet Count 197 10^3/cmm (157-399); Red Blood Count 4.57 10^6/uL (3.85-5.65); Red Cell Distribution Width 12.4 % (12.1-15.1); White Blood Count 6.52 10^3/uL (3.29-11.43)
[2023-05-05 17:46] LABS: Troponin(5th) Baseline < 6 ng/L (0-10)
[2023-05-05 17:47] LABS: Alanine Aminotransferase 15 U/L (0-33); Albumin Level 4.2 g/dL (3.5-5.2); Alkaline Phosphatase 74 U/L (35-105); Anion Gap 14.8 (5-19); Aspartate Amino Transferase 17 U/L (0-32); Blood Urea Nitrogen 13 mg/dL (6-20); Calcium 9.1 mg/dL (8.5-10.5); Carbon Dioxide 22 mmol/L (22-29); Chloride 103 mmol/L (98-107); Globulin 2.7 g/dL (1.3-4.6); Glomerular Filtration Rate 88.9 mL/min (90-130); Glucose 84 mg/dL (65-115); Osmolality Calculated 281 mOsm/kg (285-295); Potassium 3.8 mmol/L (3.5-5.1); Sodium 136 mmol/L (136-145); Total Bilirubin 0.3 mg/dL (0.15-1.2); Total Protein 6.9 g/dL (6.6-8.7)
[2023-05-05 18:32] LABS: Add Urine Culture? No; Add Urine Microscopic? YES; Bacteria Urine 2+ /hpf; Bilirubin Urine Neg (Negative); Blood Urine Neg (Negative); Glucose Urine UA Norm (Normal); Ketones Urine 1+ (Negative); Leukocyte Esterase Urine Trace (Negative); Nitrate Urine Negative (Negative); Protein Urine Neg (Negative); RBC Urine 0-4 /hpf (0-2); Squamous Epithelial Cell Urine 25-40 /hpf (0-5); Urine Appearance SL Hazy (CLEAR); Urine Color Yellow (Yellow); Urobilinogen Urine 1 mg/dL (Negative); WBC Urine 15-25 /hpf (0-5); pH Urine 5 (5-7)
--- NOTE | 2023-05-05 19:08 | ECG_ITS ---
[facility] Test Date: 2023-05-05 Pat Name: Jojo Lou Department: Room: Gender: Female Chart Changer: : 1975 Requested By: Kaden Marcos Order Number: [id number] Criss MD: Zain Alejandra M.D. Measurements Intervals [place] Rate: 84 P: 63 NC: 170 QRS: 87 QRSD: 77 T: 68 QT: 359 QTc: 426 Interpretive Statements SINUS RHYTHM Compared to ECG 05/05/2023 16:54:14 No significant changes Electronically Signed On 05-05-2023 19:33:53 CDT by Zain Alejandra M.D. [id number]
[2023-05-05 19:28] VITALS: BP 122/75; PULSE 92; RESP 16; O2SAT 99
[2023-05-05 19:55] LABS: Troponin 5 2HR Delta 0.00001 ABS# (0-10)
--- NOTE | 2023-05-05 20:57 | CTR_ITS ---
PROCEDURE INFORMATION: Exam: CTA Head With Contrast, Arteriography Exam date and time: 05/05/2023 9:28 PM Age: 48 years old Clinical indication: Other: Lt sided pain; Additional info: Left facial numbness pain, neck pain, left arm pain numbness TECHNIQUE: Imaging protocol: Computed tomographic angiography of the head with contrast. Exam focused on the arteries. 3D rendering (Not supervised by radiologist): MIP and/or 3D reconstructed images were created by the technologist. Radiation optimization: All CT scans at this facility use at least one of these dose optimization techniques: automated exposure control; mA and/or kV adjustment per patient size (includes targeted exams where dose is matched to clinical indication); or iterative reconstruction. Contrast material: OMNI 350; Contrast volume: 100 ml; Contrast route: INTRAVENOUS (IV); REPORTING DATA: Count of CT and Cardiac NM exams in prior 12 months: This patient has received [address] and 0 known cardiac nuclear medicine studies in the 12 months prior to the current study. COMPARISON: CT head wo con* [id number] 05/05/2023 5:39 PM RADIATION DOSE METRICS: Total DLP (mGy-cm): 1011.97 FINDINGS: ANTERIOR CIRCULATION: Right internal carotid artery: Intracranial segment is patent with no significant stenosis. No aneurysm. Right middle cerebral artery: No occlusion or significant stenosis. No aneurysm. Right anterior cerebral artery: No occlusion or significant stenosis. No aneurysm. Left internal carotid artery: Intracranial segment is patent with no significant stenosis. No aneurysm. Left middle cerebral artery: No occlusion or significant stenosis. No aneurysm. Left anterior cerebral artery: No occlusion or significant stenosis. No aneurysm. POSTERIOR CIRCULATION: Right vertebral artery: No occlusion or significant stenosis. No aneurysm. Left vertebral artery: No occlusion or significant stenosis. No aneurysm. Basilar artery: No occlusion or significant stenosis. No aneurysm. Right posterior cerebral artery: No occlusion or significant stenosis. No aneurysm. Left posterior cerebral artery: No occlusion or significant stenosis. No aneurysm. Brain: No definite mass, mass effect, or midline shift. Cerebral ventricles: No ventriculomegaly. Bones/joints: Unremarkable. No acute fracture. Soft tissues: Unremarkable. PROCEDURE INFORMATION: Exam: CTA Neck With Contrast Exam date and time: 05/05/2023 9:28 PM Age: 48 years old Clinical indication: Other: Lt sided pain; Additional info: Left facial numbness pain, neck pain, left arm pain numbness TECHNIQUE: Imaging protocol: Computed tomographic angiography of the neck with contrast. 3D rendering (Not supervised by radiologist): MIP and/or 3D reconstructed images were created by the technologist. Radiation optimization: All CT scans at this facility use at least one of these dose optimization techniques: automated exposure control; mA and/or kV adjustment per patient size (includes targeted exams where dose is matched to clinical indication); or iterative reconstruction. Contrast material: OMNI 350; Contrast volume: 100 ml; Contrast route: INTRAVENOUS (IV); REPORTING DATA: Count of CT and Cardiac NM exams in prior 12 months: This patient has received [address] and 0 known cardiac nuclear medicine studies in the 12 months prior to the current study. COMPARISON: CT neck wo/w con [id number] 05/31/2022 10:20 AM RADIATION DOSE METRICS: Total DLP (mGy-cm): 1011.97 FINDINGS: Right common carotid artery: No stenosis. No dissection or occlusion. Right internal carotid artery: No stenosis of the extracranial segment. No dissection or occlusion. Right external carotid artery: No occlusion or stenosis of the origin. Left common carotid artery: No stenosis. No dissection or occlusion. Left internal carotid artery: No stenosis of the extracranial segment. No dissection or occlusion. Left external carotid artery: No occlusion or stenosis of the origin. Right vertebral artery: No stenosis. No dissection or occlusion. Left vertebral artery: No stenosis. No dissection or occlusion. Soft tissues: Normal. No significant soft tissue swelling. Bones/joints: No acute fracture. CT/CT angio headneck* [id number] IMPRESSION: No large vessel stenosis or occlusion. IMPRESSION: No stenosis or occlusion. REFERENCES: NASCET CRITERIA. The degree of stenosis in the cervical segment of the internal carotid artery is based on NASCET criteria. Normal is no stenosis. Mild is less than 50% stenosis. Moderate is 50-69% stenosis. Severe is 70% to 99% stenosis. Total occlusion is no detectable patent lumen.
[2023-05-05 21:00] VITALS: PULSE 82
[2023-05-05] MEDS: ondansetron 2 mg/ML SDV 2 mL 4 MG IVP (21:13)
[2023-05-05] MEDS: sodium chloride 0.9% 1,000 ML 999 ML IV (21:13)
[2023-05-05 21:15] VITALS: BP 124/75; PULSE 79; RESP 17; O2SAT 98
[2023-05-05] MEDS: iohexol 350 mg/mL 500 mL Btl (per mL) IV (21:35)
[2023-05-05] MEDS: orphenadrine 30 mg/mL Inj 2 mL 60 MG IVP (22:31)
[2023-05-05 22:33] VITALS: BP 129/86; PULSE 100; RESP 15; O2SAT 99
[2023-05-05] MEDS: lacosamide 100 MG in sodium chloride 0.9% 50 ML 120 MG IV (22:48)
--- NOTE | 2023-05-05 22:51 | ECG_ITS ---
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 Measurements Intervals [place] Rate: 88 P: 64 AL: 175 QRS: 87 QRSD: 84 T: 63 QT: 375 QTc: 456 Interpretive Statements SINUS RHYTHM Compared to ECG 05/05/2023 19:08:10 No significant changes Electronically Signed On 05-06-2023 9:15:56 CDT by Zain Alejandra M.D. [id number]
[2023-05-05 23:49] LABS: Folate Level 8.7 ng/mL (4.8-37.3)
[2023-05-05 23:57] LABS: Troponin 5 6HR Delta 0.00001 ng/L (0-12)
[2023-05-06 00:13] VITALS: BP 105/83; RESP 14; O2SAT 98
[2023-05-06 00:48] VITALS: BP 104/70; PULSE 92; RESP 17; TEMP 36.7; O2SAT 96
[2023-05-06 03:12] VITALS: BP 88/55; PULSE 99; RESP 17; TEMP 36.8; O2SAT 96
--- NOTE | 2023-05-06 03:27 | P.HP_ITS ---
Providers/Chief Complaint Admitting Physician: Beverley Jean MD Primary Care Provider: Dominic Marin DO Chief Complaint: left sided numbness History of Present Illness Jojo Luo is a 48 year old female with history of hypothyroidism insomnia presented with complaint of sudden numbness tingling and pain on the left side of the face neck radiating to left arm and forearm since 1 day. She reports she was at work when she suddenly started feeling abnormal on the left side of her face, she further added that the pain gets worse when she moves her neck. She denies any history of fever cold cough ear pain shortness of breath chest pain urinary or bowel complaints. No history of sick contacts or recent travel. Review of Systems Narrative: As per HPI Medications/Allergies Home Medications Medication Instructions Recorded Confirmed Last Taken Type promethazine 25 mg tablet See Rx Instructions .Route 10/03/22 05/06/23 1 Day Ago Rx .COMPLEX #90 tabs ~05/05/23 25 mg levothyroxine 50 mcg tablet 50 mcg PO DAILY #90 tabs 12/09/22 05/06/23 1 Day Ago Rx ~05/05/23 50 mcg levothyroxine 75 mcg tablet 75 mcg PO DAILY #90 tabs 12/09/22 05/06/23 1 Day Ago Rx (Synthroid) ~05/05/23 75 mcg semaglutide 0.25 mg or 0.5 mg (2 See Rx Instructions .Route 04/28/23 05/06/23 1 Month Ago Rx mg/3 mL) subcutaneous pen injector .COMPLEX #3 mL ~04/06/23 (Ozempic) alprazolam 0.25 mg tablet (Xanax) 0.25 mg PO BEDTIME PRN Sleep 05/06/23 05/06/23 1 Day Ago History ~05/05/23 .25 Allergies Allergy/AdvReac Type Severity Reaction Status Date / Time No Known Allergies Allergy Verified 02/26/23 15:01 PFSH Acute PFSH: Medical History Aftercare following surgery of the genitourinary system B12 deficiency Cervical intraepithelial neoplasia grade 2 GERD without esophagitis Helicobacter pylori gastritis Hypothyroid Morbid obesity (~04/2020) Visual changes Surgical History H/O hernia repair repair of hiatal hernia History of abdominal hysterectomy 09/04/2016- Performed per Dr. Howell @ [facility] due to AUB and cancerous cells. History of delivery 1993-[place]formed in [place] 1995-[place] History of gastric bypass History of right salpingo-oophorectomy laparoscopic right ovarian cystectomy and right salpingectomy- oophorectomy performed by Dr. Howell on 06/21/2020 at [facility] History of surgery for acute abdominal pain History of tubal ligation 1995- Performed in [place] Hx of laparoscopy (~03/21/22) Diagnostic laparoscopy, Laparoscopic lysis of adhesions, Laparoscopic cystectomy performed by Dr. Howell at [facility] Family History Sister Diabetes Grandmother Diabetes maternal Stroke maternal Hypertension maternal Breast cancer maternal Family/Other Colon cancer maternal aunt Stroke maternal aunts and maternal uncles Mother Hypertension Denies family history of Ovarian cancer Clotting disorder Heart disease Hyperlipidemia Anesthesia complication Bleeding disorder Uterine cancer Thyroid condition Social History Smoking and tobacco status: never smoked Alcohol intake: former Year of sobriety/quit date alcohol: 2019 Substance/Drug Use: never Female Reproductive History: Spontaneous abortions: No Vitals/I&O/Wt Last Vital Signs Temp 98.1 F 05/06/23 00:48 Pulse 92 05/06/23 00:48 Resp 17 05/06/23 00:48 BP 104/70 05/06/23 00:48 Pulse Ox 96 05/06/23 00:48 O2 Del Method Room Air 05/06/23 00:48 05/05/23 05/05/23 05/06/23 14:59 22:59 06:59 Intake Total 1000 / 1000 60 / 1060 Balance 1000 / 1000 60 / 1060 Weight last 48 hrs Weight 62.596 kg Physical Exam Narrative: She is alert awake oriented x3 not in acute distress Chest clear to auscultation bilaterally Cardiovascular normal Abdomen soft nontender nondistended normal bowel sounds Extremities no edema present Neurological 1/5 power in left upper extremity rest normal No sensory deficits present Cranial nerve exam normal. Gait normal Data 05/05/23 17:18 05/05/23 17:[address]: Radiologist's impression: CT cervical spine FINDINGS: Bones/joints: No acute fracture. Normal alignment. No significant disc bulge or herniation. No severe spinal canal stenosis. No significant neural foraminal narrowing. Lungs: Lung apices are normal. Soft tissues: Unremarkable. CT Head: Radiologist's impression: CT head angio FINDINGS: Right common carotid artery: No stenosis. No dissection or occlusion. Right internal carotid artery: No stenosis of the extracranial segment. No dissection or occlusion. Right external carotid artery: No occlusion or stenosis of the origin.? Left common carotid artery: No stenosis. No dissection or occlusion. Left internal carotid artery: No stenosis of the extracranial segment. No dissection or occlusion. Left external carotid artery: No occlusion or stenosis of the origin.? Right vertebral artery: No stenosis. No dissection or occlusion. Left vertebral artery: No stenosis. No dissection or occlusion. Soft tissues: Normal. No significant soft tissue swelling. Bones/joints: No acute fracture. CT head No acute intracranial findings CXR: Radiologist's impression: No acute findings EKG 1: My Interpretation: Normal sinus rhythm No acute ST-T changes A&P Assessment and plan (1) Paresthesia: (2) Radiculopathy affecting upper extremity: Plan 48-year-old female with history of hypothyroidism and insomnia presented with complaint of sudden left facial paresthesia and pain radiating to left arm and forearm likely secondary to cervical radiculopathy Cannot rule out cerebrovascular accident Neurology consulted in the ER. Patient received 1 dose of IV Vimpat 100 mg and also to get MRI brain in a.m. Resume home medications IV Pepcid 20 mg every 12 hours for stress ulcer prophylaxis Subcutaneous Lovenox 30 mg daily for DVT prophylaxis She is full code for [facility] Medical Necessity Statement*: She needs continued hospitalization for more than 2 days for further work-up for left-sided facial numbness tingling and pain. Time Spent in Patient Care: 30 minutes Coding Level of Care Code Acute Code for g Fwd Diagnoses Paresthesia R20.2 Radiculopathy affecting upper extremity M54.10 Time Spent (min) 30
[2023-05-06] MEDS: famotidine 20 mg/2 mL INJ IVP ×2 (04:12→15:52)
[2023-05-06] MEDS: enoxaparin 30 mg/0.3 mL Syringe SUBCUT (04:12)
[2023-05-06 07:40] VITALS: BP 96/61; PULSE 87; RESP 20; TEMP 36.4; O2SAT 97
[2023-05-06] MEDS: levothyroxine 75 mcg Tablet PO (08:10)
[2023-05-06] MEDS: cefTRIAXone 1,000 MG in sodium chloride 0.9% (plus) 50 ML 100 MG IV (08:10)
--- NOTE | 2023-05-06 08:10 | P.CONIM_ITS ---
Providers/Reason For Consult Consulting Physician/Specialty*: Miquel Perea MD neurology and epilepsy Reason for Consult*: Left-sided headache face pain neck pain and left arm pain acute in onset Attending Physician: Ramses Driscoll MD Primary Care Provider: Dominic Marin DO History of Present Illness History of Present Illness Jojo Luo is a 48 year old female with a history of gastric sleeve placement and history of hypothyroidism with decreased TSH on October 16, 2022. Patient stated that she was at work and around 1 PM on 05/05/2023 she experienced acute onset left sided headache associated with left-sided face, neck pain and radiation into the left arm. Patient describes the pain in her head as a pressure sensation but the patient reported that the discomfort in her face was a burning tingling sensation. Patient denied weakness or speech difficulty or visual difficulty or history of headaches. The patient also reports a history of low blood pressure but did report a family history of strokes but stated that the family members who experienced strokes suffered from high blood pressure. Noncontrast head CT, CT of the cervical spine, and CT angiogram of the head and neck were reported to be negative. I was contacted on the night of 05/05/2023 and patient was started on IV lacosamide for neuropathic type pain. Past medical history: Gastric sleeve placement Low blood pressure Severe claustrophobia Drug allergies: None Current medications: Synthroid 75 mcg p.o. daily Semaglutide 0.5 mg subcutaneous Habits: None Family history: Remarkable for family members with stroke related to hypertension Review of Systems General: Reports: 10 or more systems reviewed and unremarkable except in HPI and below Medications/Allergies Home Medications Medication Instructions Recorded Confirmed Last Taken Type promethazine 25 mg tablet See Rx Instructions .Route 10/03/22 05/06/23 1 Day Ago Rx .COMPLEX #90 tabs ~05/05/23 25 mg levothyroxine 50 mcg tablet 50 mcg PO DAILY #90 tabs 12/09/22 05/06/23 1 Day Ago Rx ~05/05/23 50 mcg levothyroxine 75 mcg tablet 75 mcg PO DAILY #90 tabs 12/09/22 05/06/23 1 Day Ago Rx (Synthroid) ~05/05/23 75 mcg semaglutide 0.25 mg or 0.5 mg (2 See Rx Instructions .Route 04/28/23 05/06/23 1 Month Ago Rx mg/3 mL) subcutaneous pen injector .COMPLEX #3 mL ~04/06/23 (Ozempic) alprazolam 0.25 mg tablet (Xanax) 0.25 mg PO BEDTIME PRN Sleep #30 05/06/23 Unknown Rx tabs Allergies Allergy/AdvReac Type Severity Reaction Status Date / Time No Known Allergies Allergy Verified 02/26/23 15:01 Current Medications Generic Name Dose Route Start Last Admin Trade Name Freq PRN Reason Stop Dose Admin Enoxaparin Sodium 30 mg 05/06/23 03:30 05/06/23 04:12 Enoxaparin 30 Mg/0.3 Ml Syringe SUBCUT 30 mg Q24H ELIDIA Administration Famotidine 20 mg 05/06/23 03:30 05/06/23 04:12 Famotidine 20 Mg/2 Ml Inj IVP 20 mg Q12H ELIDIA Administration Lacosamide 100 mg/ Sodium 60 mls @ 120 mls/hr 05/05/23 22:30 05/06/23 00:01 Chloride IV Infused Q12H ELIDIA Infusion PFSH Acute PFSH: Medical History Aftercare following surgery of the genitourinary system B12 deficiency Cervical intraepithelial neoplasia grade 2 GERD without esophagitis Helicobacter pylori gastritis Hypothyroid Morbid obesity (~04/2020) Visual changes Surgical History H/O hernia repair repair of hiatal hernia History of abdominal hysterectomy 09/04/2016- Performed per Dr. Howell @ [facility] due to AUB and cancerous cells. History of delivery 1993-Performed in [place] 1995-[place] History of gastric bypass History of right salpingo-oophorectomy laparoscopic right ovarian cystectomy and right salpingectomy- oophorectomy performed by Dr. Howell on 06/21/[address] [facility] History of surgery for acute abdominal pain History of tubal ligation 1995- Performed in [place] Hx of laparoscopy (~03/21/22) Diagnostic laparoscopy, Laparoscopic lysis of adhesions, Laparoscopic cystectomy performed by Dr. Howell at [facility] Family History Sister Diabetes Grandmother Diabetes maternal Stroke maternal Hypertension maternal Breast cancer maternal Family/Other Colon cancer maternal aunt Stroke maternal aunts and maternal uncles Mother Hypertension Denies family history of Ovarian cancer Clotting disorder Heart disease Hyperlipidemia Anesthesia complication Bleeding disorder Uterine cancer Thyroid condition Social History Smoking and tobacco status: never smoked Alcohol intake: former Year of sobriety/quit date alcohol: 2019 Substance/Drug Use: never Female Reproductive History: Spontaneous abortions: No Vitals/I&O/Wt Last Vital Signs Temp 97.5 F L 05/06/23 07:40 Pulse 87 05/06/23 07:40 Resp 20 H 05/06/23 07:40 BP 96/61 05/06/23 07:40 Pulse Ox 97 05/06/23 07:40 O2 Del Method Room Air 05/06/23 07:40 05/05/23 05/06/23 05/06/23 22:59 06:59 14:59 Intake Total 1000 / 1000 160 / 1160 Balance 1000 / 1000 160 / 1160 Weight last 48 hrs Weight 138 lb Physical Exam Narrative: Patient is alert and oriented x3. Speech fluent. Head normocephalic neck supple cranial nerves II through XII revealed left facial paresthesias in a V1 through V3 distribution as well as left upper extremity paresthesias and pain. But, improved on IV lacosamide. Pupils 4 mm. Pupils equal round and reactive light accommodation extraocular movements intact. Motor testing 5/5 bilaterally. Deep tendon reflexes grossly symmetrical plantar responses flexor bilaterally. Throat clear. Lungs clear. Heart regular rhythm and rate. Extremities were negative for clubbing cyanosis or edema Data 05/05/23 17:18 05/05/23 17:18 A&P Assessment and plan (1) Paresthesia: Impression: 1. Acute onset of left-sided paresthesias involving the head, face, neck and left upper extremity, etiology unclear assess for right thalamic stroke 2. History of gastric sleeve placement for weight 3. Hypothyroidism 4. Severe claustrophobia Plan: 1. Head MRI without contrast to assess for right thalamic stroke with IV Valium 5 to 10 mg prior to study for sedation 2. Continue lacosamide 100 mg IV twice a day for left-sided neuropathic pain suggestive of possible thalamic pain syndrome 3. If head MRI is unremarkable, will give patient trial of nonsteroidal anti-inflammatory medication (i.e. Toradol or indomethacin) (2) Headache: Consult Attestations Medical Necessity Statement: Patient seen for left-sided pain and paresthesias Coding Level of Care Code 43348 Diagnoses Paresthesia R20.2 Headache R51.9
--- NOTE | 2023-05-06 09:23 | PC.CHAP ---
Pastoral Care Encounter/Spiritual Assessment Type of Contact [] Declined wrapper sorter visit [] Patient/Family/Request visit [] Outpatient visit [] Follow-up visit [] Physician referral [] Code/Alert [x] Routine visit [] Staff referral [] Actively dying [] Patient sleeping [x] Family support [] [] Out of room [] Palliative care [] [] Receiving care in room [] Pre-surgical visit [] Trauma [] Long length of stay [] ICU visit [] Other: Relational/Emotional Strength [x] Patient feels connected with others/family/visitors/staff [] Distress [] Loneliness/isolation [] Abandonment Spirituality of Patient [x] Person of Anna [] Attends Yarsanism of their Anna [x] Believes in Prayer [] Reads Bible or Scientologist materials [] There are Spiritual issues to be addressed [employer] Interventions [x] Prayer [x] Active listening [] Non-anxious presence [x] Spiritual/emotional support [] Crisis/trauma care [] Spiritual counseling [] Bereavement support [] Provided bereavement packet [] Provided Bible/devotional materials [] Provided toy/stuffed animal, coloring book to patient or family member [] Provided Communion [] Anointing/Solen [] Salvation [x] Completed spiritual assessment [] Other: Impact on Illness or Injury [] Angry [] Fearful [] Anxious [] Often cries [] Exhaustion [] Unable to work [] Unable to attend anabaptism [] Unable to walk/stand [] Unable to read [] Unable to drive [] Unable to eat/drink [] Unable to sleep [] Unable to be with family [] Patient intubated [] Other: Summary Time spent with patient 5 min
[2023-05-06] MEDS: LORazepam 2 mg/mL INJ 1 mL IVP (10:08)
[2023-05-06] MEDS: LORazepam 2 mg/mL INJ 1 mL 1 MG IVP (11:04)
[2023-05-06] MEDS: lacosamide 100 MG in sodium chloride 0.9% 50 ML 120 MG IV (11:22)
[2023-05-06 12:00] VITALS: BP 119/80; PULSE 104; RESP 20; TEMP 36.4; O2SAT 99
[2023-05-06] MEDS: ketorolac 30 mg/mL INJ 15 MG IVP (14:42)
[2023-05-06] MEDS: sodium chloride 0.9% 1,000 ML 63 ML IV (14:44)
[2023-05-06 16:00] VITALS: BP 108/65; PULSE 114; RESP 20; TEMP 36.5; O2SAT 98
[2023-05-06 16:49] LABS: Free T4 Free Thyroxine 2.15 ng/dL (0.82-1.77); Thyroid Stimulating Hormone 0.01 uIU/mL (0.27-4.20)
[2023-05-06] MEDS: magnesium sulfate premix 2 GM/50 ML PIGGYBACK IV (16:57)
[2023-05-06] MEDS: tizanidine 4 mg Tablet PO (16:57)
[2023-05-06] MEDS: diphenhydrAMINE 50 mg/mL SDV 1mL 25 MG IVP (16:57)
--- NOTE | 2023-05-06 18:16 | P.DS_ITS ---
Discharge Providers Date of Admission: 05/06/23 03:19 Date of Discharge: May 06, 2023 Attending Provider at Admission: Beverley Jean MD Attending Provider at Discharge: Ramses Driscoll MD Consults: Neurology Primary Care Provider: Dominic Marin DO Diagnoses at Discharge Discharge Diagnosis (1) Paresthesia: Status: Acute (2) Headache: Status: Acute Reason for Visit Reason for Visit: left sided numbness Hospital Course Hospital Course Jojo Luo is a 48-year-old female with a past medical history significant for gastric bypass, B12 deficiency, hypothyroidism, and GERD who presented with numbness, tingling, and pain on the left side of the face neck radiating to left arm and forearm x1 day. Neurology consulted. Right thalamic stroke was considered but ruled out. Head MRI was negative for acute findings. Vitamin B12 level is pending. She was treated with Vimpat, NSAID, magnesium, IV benadryl and Zanaflex. Headache persisted. Patient discussed further with neurology who recommended Indomethacin and Zanaflex with neurology clinic follow up. Patient discharged home with . She has follow up with PCP in the morning. Patient also complained of 60 pound weight loss which she attributed to H pylori infection. Also reports insomnia, fatigue, temperature intolerance, neck fullness, fecal urgency and diarrhea. Tachycardic. Thyroid function checked, found to be persistently hyperthyroid. It appears she is taking 125 mcg daily. I discussed her dose needs adjusted with TFTs followed closely. She will dis cuss this with Dr Marin in the morning. She reports she is also on Ozempic. Her BMI is 22. She states she doesn't take it every week. Encouraged her to discuss proper dosing with her PCP tomorrow. I am not convinced she still needs this medication. Patient discharged to home in stable condtition. Physical Exam Narrative: General: Patient is awake. Appears ill. Frail appearing. Head: Normocephalic. Neck: No JVD. No significant lymphadenopathy. Cardiovascular: Tachycardic. Normal peripheral perfusion. Lungs: Non-labored. No accessory muscle use. Abdomen: Not distended. Extremities: No cyanosis or clubbing. Musculoskeletal: No erythematous joints. Neurological: Moves all 4 extremities. Discharge Data Studies Completed and Pending Completed Studies During Hospitalization Category Date Time Status CT cervical spin wo con* [id number] Stat Cat Scan 05/05/23 17:[address] head wo con* [id number] Stat Cat Scan 05/05/23 17:00 Completed CTA head neck [CT angio headneck* [id number]] Stat Cat Scan 05/05/23 20:57 Completed XR chest 1V portable [id number] Stat Exams 05/05/23 17:00 Completed MR head wo con* [id number] Stat MRI 05/06/23 22:20 Completed Pending at discharge Category Date Time Status Methylmalonic Acid Stat Lab 05/05/23 22:32 Received Radiology Impressions Chest X-Ray 05/05/23 17:00 IMPRESSION: No acute findings. Head CT 05/05/23 17:00 IMPRESSION: No acute intracranial abnormality. Cervical Spine CT 05/05/23 17:09 IMPRESSION: No acute findings. Head/Neck CTA 05/05/23 20:57 IMPRESSION: No large vessel stenosis or occlusion. IMPRESSION: No stenosis or occlusion. REFERENCES: NASCET CRITERIA. The degree of stenosis in the cervical segment of the internal carotid artery is based on NASCET criteria. Normal is no stenosis. Mild is less than 50% stenosis. Moderate is 50-69% stenosis. Severe is 70% to 99% stenosis. Total occlusion is no detectable patent lumen. Laboratory Results WBC 6.52 10^3/uL (3.29-11.43) 05/05/23 17:18 RBC 4.57 10^6/uL (3.85-5.65) 05/05/23 17:18 Hgb 13.80 g/dL (11.27-16.99) 05/05/23 17:18 Hct 41.6 % (36-47) 05/05/23 17:18 MCV 91.0 fl (85-98) 05/05/23 17:18 MCH 30.2 pg (27-33) 05/05/23 17:18 MCHC 33.2 g/dL (30-55) 05/05/23 17:18 RDW 12.4 % (12.1-15.1) 05/05/23 17:18 Plt Count 197 10^3/cmm (157-399) 05/05/23 17:18 MPV 10.7 fL (7.4-10.4) H 05/05/23 17:18 Neut % (Auto) 57.6 % 05/05/23 17:18 Lymph % (Auto) 34.0 % 05/05/23 17:18 [place] % (Auto) 6.7 % 05/05/23 17:18 Eos % (Auto) 1.2 % 05/05/23 17:18 Baso % (Auto) 0.2 % 05/05/23 17:18 Neut # (Auto) 3.75 10^3/uL (1.8-7.7) 05/05/23 17:18 Lymph # (Auto) 2.2 10^3/uL (0.8-4.8) 05/05/23 17:18 [place] # (Auto) 0.4 10^3/uL (0.2-0.9) 05/05/23 17:18 Eos # (Auto) 0.1 10^3/uL (0.0-0.8) 05/05/23 17:18 Baso # (Auto) 0.0 10^3/uL (0.0-0.1) 05/05/23 17:18 Nucleated RBC % (auto) 0 % 05/05/23 17:18 Nucleated RBCs # 0.0 /100WBC 05/05/23 17:18 Sodium 136 mmol/L (136-145) 05/05/23 17:18 Potassium 3.8 mmol/L (3.5-5.1) 05/05/23 17:18 Chloride 103 mmol/L (98-107) 05/05/23 17:18 Carbon Dioxide 22 mmol/L (22-29) 05/05/23 17:18 Anion Gap 14.8 (5-19) 05/05/23 17:18 BUN 13 mg/dL (6-20) 05/05/23 17:18 Creatinine 0.7 mg/dL (0.5-0.9) 05/05/23 17:18 GFR Calculation 88.9 mL/min (90-130) L 05/05/23 17:18 Glucose 84 mg/dL (65-115) 05/05/23 17:18 Calculated Osmolality 281 mOsm/kg (285-295) L 05/05/23 17:18 Calcium 9.1 mg/dL (8.5-10.5) 05/05/23 17:18 Total Bilirubin 0.3 mg/dL (0.15-1.2) 05/05/23 17:18 AST 17 U/L (0-32) 05/05/23 17:18 ALT 15 U/L (0-33) 05/05/23 17:18 Alkaline Phosphatase 74 U/L (35-105) 05/05/23 17:18 Troponin T Baseline < 6 ng/L (0-10) 05/05/23 17:18 Troponin T 120 Minute 6.0 ng/L (0-10) 05/05/23 19:20 Delta Troponin T 0.05695 ABS# (0-10) 05/05/23 19:20 Troponin T Hi Sens 6Hr 6.0 ng/L (0-10) 05/05/23 23:14 Troponin T Hi Sens 6Hr Delta 0.75116 ng/L (0-12) 05/05/23 23:14 Total Protein 6.9 g/dL (6.6-8.7) 05/05/23 17:18 Albumin 4.2 g/dL (3.5-5.2) 05/05/23 17:18 Globulin 2.7 g/dL (1.3-4.6) 05/05/23 17:18 Folate 8.7 ng/mL (4.8-37.3) 05/05/23 22:32 TSH 0.01 uIU/mL (0.27-4.20) L 05/05/23 17:18 Free T4 2.15 ng/dL (0.82-1.77) H 05/05/23 17:18 Urine Color Yellow (Yellow) 05/05/23 18:05 Urine Appearance Sl hazy (CLEAR) A 05/05/23 18:05 Urine pH 5 (5-7) 05/05/23 18:05 Ur Specific [place] 1.020 (1.005-1.030) 05/05/23 18:05 Urine Protein Neg (Negative) 05/05/23 18:05 Urine Glucose (UA) Norm (Normal) 05/05/23 18:05 Urine Ketones 1+ (Negative) H 05/05/23 18:05 Urine Blood Neg (Negative) 05/05/23 18:05 Urine Nitrate Negative (Negative) 05/05/23 18:05 Urine Bilirubin Neg (Negative) 05/05/23 18:05 Urine Urobilinogen 1 mg/dL (Negative) H 05/05/23 18:05 Ur Leukocyte Esterase Trace (Negative) H 05/05/23 18:05 Urine RBC 0-4 /hpf (0-2) H 05/05/23 18:05 Urine WBC 15-25 /hpf (0-5) H 05/05/23 18:05 Ur Squamous Epith Cells 25-40 /hpf (0-5) H 05/05/23 18:05 Amorphous Sediment Not Reportable 05/05/23 18:05 Urine Bacteria 2+ /hpf (NONE) H 05/05/23 18:05 Vitals Last Vital Signs Temp 97.7 F 05/06/23 16:00 Pulse 114 H 05/06/23 16:00 Resp 20 H 05/06/23 16:00 BP 108/65 05/06/23 16:00 Pulse Ox 98 05/06/23 16:00 O2 Del Method Room Air 05/06/23 16:00 Discharge Plan Discharge Patient Disposition: Home Condition: Stable Prescriptions: New tizanidine 4 mg Tablet 4 mg PO TID PRN (Reason: Muscle relaxant) 14 Days Qty: 21 0RF Indomethacin 30 mg PO BID PRN (Reason: pain) 14 Days Qty: 28 0RF Continued promethazine 25 mg tablet See Rx Instructions .ROUTE .COMPLEX Qty: 90 1RF Dose Instruction: TAKE 1 TABLET BY MOUTH THREE TIMES DAILY NEEDED FOR NAUSEA AND VOMITING Rx Instructions: TAKE 1 TABLET BY MOUTH THREE TIMES DAILY NEEDED FOR NAUSEA AND VOMITING levothyroxine [Synthroid] 75 mcg tablet 75 mcg PO DAILY Qty: 90 1RF levothyroxine 50 mcg tablet 50 mcg PO DAILY Qty: 90 2RF Ozempic 0.25 mg or 0.5 mg (2 mg/3 mL) pen injector See Rx Instructions .ROUTE .COMPLEX Qty: 3 3RF Dose Instruction: INJECT 0.5MG SUBCUTANEOUSLY every week Rx Instructions: INJECT 0.5MG SUBCUTANEOUSLY every week alprazolam [Xanax] 0.25 mg tablet 0.25 mg PO BEDTIME PRN (Reason: Sleep) Qty: 30 5RF Discharge Orders: Discharge Order (Routine); Ordered 05/06/23 Ordered By: Ramses Driscoll Referrals: Tania,Dominic W, DO [Primary Care Provider] - 1-3 days (We have notified your physician's clinic of the need for a follow-up appointment to be scheduled. If you have not heard from them within the next 2 business days, please call them directly. You may also reach out to our area development manager at [phone] and she can assist you.) Miquel Perea MD [Physician] - 7-10 days (We have notified your physician's clinic of the need for a follow-up appointment to be scheduled. If you have not heard from them within the next 2 business days, please call them directly. You may also reach out to our area development manager at [phone] and she can assist you.) Discharge Diet: Advance as tolerated and Usual diet Discharge Activity: Resume usual activity and Increase activity as tolerated Patient Instructions: Opioid Safety Activity Restrictions/Additional Instructions: 1. Hold levothyroxine until discussion with PCP on 05/07/2023 as you are hyperthyroid and your dose is too high. 2. Recommend discussing need for Ozempic with PCP as BMI is 22. 3. Take medications as prescribed. 4. No driving or operating heavy machinery for 24 hours. Discharge Attestations Time Spent in Discharge Care*: greater than 30 min Quality Metrics Clinical Quality Measures [ No reported AMI, CVA or VTE this stay] Coding Level of Care Code Acute Code for Chg Fwd Diagnoses Paresthesia R20.2 Headache R51.9
--- NOTE | 2023-05-06 22:20 | MR_ITS ---
WS: [id number] MRI HEAD WITHOUT CONTRAST TECHNIQUE: Sagittal T1, T2 axial, T2 axial FLAIR, axial and coronal T1 images, axial susceptibility w eighted imaging, axial diffusion weighted images, and coronal T2 images were obtained. CLINICAL INFORMATION: right thalamic stroke like symptoms COMPARISON: CT 05/05/23 and MRI 07/09/2021 FINDINGS: No evidence of restricted diffusion to suggest acute ischemia. Ventricular system and basilar cistern s are patent. A few tiny foci of T2 hyperintensity in the frontal white matter nonspecific in a patie nt this age but stable since 2020. Normal posterior fossa. Normal vascular flow voids at the skull base. No extra-axial fluid collection s. No evidence of mass or mass effect. Paranasal sinuses and mastoid air cells are well aerated. No h emosiderin on the susceptibility weighted images. Normal optic chiasm and pituitary infundibulum. Temporal lobes and hippocampal formations are normal in appearance. Normal posterior nasopharynx. No other suspicious findings. IMPRESSION: 1. No evidence of restricted diffusion to suggest acute ischemia. 2. Minimal supratentorial white matter changes similar to 2020. 3. No hemosiderin on the susceptibility weighted images. 4. No other suspicious findings.
[2023-05-07 14:34] LABS: Vitamin B12 (Cobalamin) 260 pg/mL (200-1100)
[2023-05-09 06:19] LABS: Methylmalonic Acid 136 nmol/L (87-318)
== END 2023-05-06 19:04 | disposition home or self-care (01) | DRG 103 ==
LOC: ER 22:42 → MEDSURG 05-06 06:30
PROVIDERS: Emergency Medicine; Admitting Provider Internal Medicine; Emergency Provider Family Medicine; PCP Family Medicine; Visit Provider Internal Medicine
DX: R51.9 Headache, unspecified (principal); R20.0 Anesthesia of skin; E53.8 Deficiency of other specified B group vitamins; Z98.84 Bariatric surgery status; E03.9 Hypothyroidism, unspecified; K21.9 Gastro-esophageal reflux disease without esophagitis; R19.7 Diarrhea, unspecified; R00.0 Tachycardia, unspecified; M54.2 Cervicalgia; Z82.3 Family history of stroke; F40.240 Claustrophobia; Z79.85 Long-term (current) use of injectable non-insulin antidiabetic drugs
CPT/HCPCS: 36415; 70450; 70496; 70498; 70551; 71045; 72125; 80053; 81001; 82607; 82746; 83921; 84439; 84443; 84484; 85025; 93005; 96365; 96366; 96372; 96375; 99285; C9254; J0696; J1100; J1200; J1650; J1885; J2060; J2360; J2405; J3475; J3490; J7030; Q9967

== ENCOUNTER → 2023-05-07 11:12 | Outpatient (BNVA) | payer MEDICAID, SELFPAY | PROVIDERS: PCP Family Medicine; Visit Provider Family Medicine | DX: M54.10 Radiculopathy, site unspecified (principal); R53.83 Other fatigue; R51.9 Headache, unspecified; R20.2 Paresthesia of skin | CPT/HCPCS: 86308 ==

== ENCOUNTER 2023-05-14 10:44 | Outpatient (CLI) | payer MEDICAID, SELFPAY ==
[2023-05-14 11:32] LABS: Basophils % 0.2 %; Eosinophils # 0.1 10^3/uL (0.0-0.8); Eosinophils % 1.4 %; Hematocrit 39.6 % (36-47); Lymphocytes # 1.5 10^3/uL (0.8-4.8); Lymphocytes % 34.6 %; Mean Corpuscular HGB Conc 32.8 g/dL (30-55); Mean Corpuscular Hemoglobin 30.4 pg (27-33); Mean Corpuscular Volume 92.7 fl (85-98); Mean Platelet Volume 10.2 fL (7.4-10.4); Monocytes # 0.3 10^3/uL (0.2-0.9); Monocytes % 6.8 %; Neutrophils # 2.41 10^3/uL (1.8-7.7); Neutrophils % 56.8 %; Nucleated Red Blood Cells % 0 %; Platelet Count 183 10^3/cmm (157-399); Red Blood Count 4.27 10^6/uL (3.85-5.65); Red Cell Distribution Width 12.7 % (12.1-15.1); White Blood Count 4.25 10^3/uL (3.29-11.43)
[2023-05-14 11:44] LABS: Urine Appearance SL Hazy (CLEAR); Urine Color Yellow (Yellow)
[2023-05-14 11:45] LABS: Bilirubin Urine Neg (Negative); Blood Urine Neg (Negative); Glucose Urine UA Norm (Normal); Ketones Urine Negative (Negative); Leukocyte Esterase Urine Trace (Negative); Nitrate Urine Negative (Negative); Protein Urine Neg (Negative); Specific Gravity, Urine 1.015 (1.005-1.030); Urobilinogen Urine Norm (Negative); pH Urine 5 (5-7)
[2023-05-14 11:49] LABS: Add Urine Culture? No; Bacteria Urine TRACE /hpf; Hyaline Casts Urine RARE /lpf; Mucus Urine 2+ /hpf; RBC Urine 0-4 /hpf (0-2); WBC Urine 0-4 /hpf (0-5)
[2023-05-14 11:50] LABS: Magnesium 2.1 mg/dL (1.7-2.3)
[2023-05-14 13:02] LABS: LAB Peripheral Smear Sent for Review
== END 2023-05-14 10:45 | disposition home or self-care (01) ==
LOC: LAB 10:46
PROVIDERS: PCP Family Medicine; Visit Provider Family Medicine
DX: N30.90 Cystitis, unspecified without hematuria (principal); R20.2 Paresthesia of skin; R51.9 Headache, unspecified; R53.83 Other fatigue; E83.42 Hypomagnesemia
CPT/HCPCS: 36415; 80053; 80503; 81001; 83735; 85025; 85651; 86140; 87040; 87086

== ENCOUNTER → 2023-05-20 13:07 | Outpatient (BNVA) | payer MEDICAID, SELFPAY | PROVIDERS: PCP Family Medicine; Visit Provider Psychiatry & Neurology Neurology | DX: R51.9 Headache, unspecified (principal); Z09 Encounter for follow-up examination after completed treatment for conditions other than malignant neoplasm; I63.9 Cerebral infarction, unspecified | CPT/HCPCS: 36415; 81241; 83090; 85210; 85300; 85303; 85306; 85613; 85730; 86146; 86147; 99212 ==

== ENCOUNTER 2023-05-27 12:16 | Outpatient (CLI) | payer MEDICAID, SELFPAY ==
--- NOTE | 2023-05-27 13:00 | MR_ITS ---
WS: [id number] MRI BRAIN WITHOUT CONTRAST HISTORY: I63.9 - Cerebral infarction, unspecified COMPARISON: 05/06/2023 TECHNIQUE: Diffusion imaging, multiplanar T1, T2 and FLAIR imaging obtained. Motion artifact. No evidence for acute infarct or hemorrhage. Stevens-white matter differentiation is normal. There are a few tiny foci of T2 hyperintensity in the frontal lobe white matter. Subcortical distribution. No ch meg since 2020. No large territory infarct. No remote or acute infarcts are volume loss. Ventricles and extra-axial spaces are normal. No inferior displacement of cerebellar tonsils. The sella turcica and pituitary gland are unremarkabl e. Dural venous sinuses and [place] demonstrate no abnormality on this unenhanced studies. Paranasal sinuses: Clear. Mastoid air cells: Normal. Calvarium and scalp: Intact. IMPRESSION: 1. Unremarkable noncontrast MRI brain. 2. No restricted diffusion or acute infarcts. Minimal small vessel ischemic type changes. Similar to the study of 05/06/2023. No interval change.
== END 2023-05-27 12:17 | disposition home or self-care (01) ==
LOC: RAD 12:16
PROVIDERS: PCP Family Medicine; Visit Provider Psychiatry & Neurology Neurology
DX: I63.9 Cerebral infarction, unspecified (principal)
CPT/HCPCS: 70551

== ENCOUNTER 2023-05-28 15:42 | Outpatient (CLI) | payer MEDICAID, SELFPAY ==
[2023-05-28 18:00] LABS: 25 Hydroxy Vitamin D 54 ng/mL (30-100)
== END 2023-05-28 15:43 | disposition home or self-care (01) ==
LOC: LAB 15:45
PROVIDERS: PCP Family Medicine; Visit Provider Psychiatry & Neurology Neurology
DX: R53.83 Other fatigue (principal); E03.9 Hypothyroidism, unspecified; R20.2 Paresthesia of skin; R51.9 Headache, unspecified
CPT/HCPCS: 36415; 82306

== ENCOUNTER 2023-06-10 12:59 | Outpatient (CLI) | payer MEDICAID, SELFPAY ==
--- NOTE | 2023-06-10 13:04 | USCV_ITS ---
Jojo Luo Age: 48 Gender: F : 1975 Exam Date: 06/10/2023 13:24 Ordering Phys: Miquel Perea MD Technologist: Exam Location: [facility] [place] Indication: cva BP: 110 / 65 HR: 74 Rhythm: Sinus Technical Quality: Adequate MEASUREMENTS (Male / Female) Normal Values 2D ECHO LV Diastolic Diameter PLAX 3.8 cm 4.2 - 5.9 / 3.9 - 5.3 cm LV Systolic Diameter PLAX 2.8 cm IVS Diastolic Thickness 0.9 cm 0.6 - 1.0 / 0.6 - 0.9 cm IVS Systolic Thickness 1.1 cm LVPW Diastolic Thickness 1.2 cm 0.6 - 1.0 / 0.6 - 0.9 cm LVPW Systolic Thickness 1.1 cm LVOT Diameter 1.8 cm LV Ejection Fraction 2D Teich 54.3 % LV Ejection Fraction MOD 2C 71.2 % LV Ejection Fraction 2C AL 71.4 % LA Diameter 2.9 cm IVC Diameter 1.5 cm M-MODE Aortic Annulus Diameter 2.9 cm LA Ao Ratio MM 1.0 MV E Point Septal Separation 1.0 cm DOPPLER LVOT Peak Velocity 94.0 cm/s MV Area PHT 5.0 cm squared Mitral E to A Ratio 1.3 MV E' Velocity 54.0 cm/s Mitral E to MV E' Ratio 5.7 Mitral E to LV E' Lateral Ratio 5.8 Mitral E to LV E' Septal Ratio 5.7 TR Peak Velocity 212.7 cm/s TR Peak Gradient 18.1 mmHg TV Peak E Velocity 98.0 cm/s Right Atrial Pressure 3.0 mmHg Pulmonary Artery Systolic Pressu 21.1 mmHg RV Acceleration Time 0.1 s FINDINGS Left Ventricle Normal left ventricular size, systolic function and wall thickness, with no regional wall motion abnormalities. Grade I/IV diastolic dysfunction (abnormal relaxation filling pattern), normal to mildly elevated filling pressures. Left ventricular ejection fraction is estimated at 60 %. Right Ventricle Normal right ventricular size and systolic function. Normal right ventricular systolic pressure. Right Atrium The right atrium is normal in size. Left Atrium The left atrium is normal in size. Mitral Valve Structurally normal mitral valve. Mild-moderate mitral valve regurgitation. Aortic Valve Structurally normal aortic valve without significant sclerosis or stenosis. There is no aortic regurgitation. Tricuspid Valve Structurally normal tricuspid valve without significant stenosis or regurgitation. Pulmonary artery systolic pressure is normal. Pulmonic Valve Pulmonic valve not well visualized. Pericardium Normal pericardium without effusion. Aorta Normal ascending aorta dimension. IVC The inferior vena cava appears normal. CONCLUSIONS Normal left ventricular size, systolic function and wall thickness, with no regional wall motion abnormalities. Grade I/IV diastolic dysfunction (abnormal relaxation filling pattern), normal to mildly elevated filling pressures. Left ventricular ejection fraction is estimated at 60 %. Structurally normal mitral valve. Mild-moderate mitral valve regurgitation. There are no prior echocardiogram studies to compare. Dr. Mikey Stoll MD (Electronically Signed) Final Date: 10 June 2023 15:57 S
== END 2023-06-10 13:00 | disposition home or self-care (01) ==
LOC: RAD 12:59
PROVIDERS: PCP Family Medicine; Visit Provider Psychiatry & Neurology Neurology
DX: Z86.73 Personal history of transient ischemic attack (TIA), and cerebral infarction without residual deficits (principal); I51.89 Other ill-defined heart diseases; I34.0 Nonrheumatic mitral (valve) insufficiency
CPT/HCPCS: C8924

== ENCOUNTER 2023-06-16 11:07 | Outpatient (CLI) | payer MEDICAID, SELFPAY ==
--- NOTE | 2023-06-16 11:12 | MM_ITS ---
WS: [id number] BILATERAL SCREENING DIGITAL TOMOSYNTHESIS MAMMOGRAM WITH CAD HISTORY: SCREENING COMPARISON: 05/02/2022 and 07/10/2016 Bilateral CC and MLO views with tomosynthesis and synthetic mammography submitted. Computer aided det ection analyzed. Breast composition: There are scattered areas of fibroglandular density. No suspicious masses, microc alcifications or architectural distortion. IMPRESSION: MM/[place] [id number] BI-RADS: 1-Negative FOLLOW UP: 1 Year Follow-up
== END 2023-06-16 11:08 | disposition home or self-care (01) ==
LOC: RAD 11:07
PROVIDERS: PCP Family Medicine; Visit Provider Family Medicine
DX: Z12.31 Encounter for screening mammogram for malignant neoplasm of breast (principal)
CPT/HCPCS: 77063; 77067

== ENCOUNTER → 2023-08-05 15:00 | Outpatient (BNVA) | payer MEDICAID, SELFPAY | PROVIDERS: PCP Family Medicine; Visit Provider Psychiatry & Neurology Neurology | DX: R20.2 Paresthesia of skin (principal); E53.8 Deficiency of other specified B group vitamins | CPT/HCPCS: 36415; 82525; 82607; 82746; 83921; 99212 ==

== ENCOUNTER → 2023-11-27 12:36 | Outpatient (BNVA) | payer MEDICAID, SELFPAY | PROVIDERS: PCP Family Medicine; Visit Provider Family Medicine | DX: E53.8 Deficiency of other specified B group vitamins (principal); E03.9 Hypothyroidism, unspecified; R53.83 Other fatigue; G47.00 Insomnia, unspecified; R79.89 Other specified abnormal findings of blood chemistry; E55.9 Vitamin D deficiency, unspecified | CPT/HCPCS: 80053; 80061; 82306; 82607; 82672; 83001; 84144; 84439; 84443 ==

== ENCOUNTER 2023-12-24 12:35 | Outpatient (CLI) | payer MEDICAID, SELFPAY ==
--- NOTE | 2023-12-24 12:42 | XR_ITS ---
WS: [id number] Exam: XR hip LT 2-3V wo/w pel* [id number] Date/Time of Exam: 12/24/2023 1:01 PM Reason For Exam: fell down camper stairs No fracture or dislocation. The joint compartment is relatively well-maintained. Unremarkable soft ti ssues. XR/XR hip LT 2-3V wo/w pel* [id number] IMPRESSION: 1. Negative LEFT hip.
== END 2023-12-24 12:36 | disposition home or self-care (01) ==
LOC: RAD 12:37
PROVIDERS: PCP Family Medicine; Visit Provider Nurse Practitioner
DX: S79.912A Unspecified injury of left hip, initial encounter (principal); W10.8XXA Fall (on) (from) other stairs and steps, initial encounter
CPT/HCPCS: 73502

== ENCOUNTER → 2024-01-05 14:08 | Outpatient (BNVA) | payer MEDICAID, SELFPAY | PROVIDERS: PCP Family Medicine; Visit Provider Psychiatry & Neurology Neurology | DX: Z87.898 Personal history of other specified conditions (principal); E53.8 Deficiency of other specified B group vitamins | CPT/HCPCS: 36415; 82607; 99212 ==

== ENCOUNTER → 2024-03-24 13:33 | Outpatient (BNVA) | payer MEDICAID, SELFPAY | PROVIDERS: PCP Family Medicine; Visit Provider Psychiatry & Neurology Neurology | DX: R20.2 Paresthesia of skin (principal); E53.8 Deficiency of other specified B group vitamins; G51.0 Bell's palsy; F41.9 Anxiety disorder, unspecified | CPT/HCPCS: 36415; 84207; 84591; 99212; 99214 ==

== ENCOUNTER 2024-04-20 19:01 | Emergency (ER) | payer MEDICAID, SELFPAY ==
[2024-04-20] VITALS (7 sets, daily range): BP systolic 99–119; BP diastolic 57–88; PULSE 73–97; RESP 14–19; TEMP 36.7; O2SAT 99–100; BMI 21.7
--- NOTE | 2024-04-20 19:06 | CTR_ITS ---
PROCEDURE INFORMATION: Exam: CT Head Without Contrast Exam date and time: 04/20/2024 7:27 PM Age: 48 years old Clinical indication: Weakness, extremity; Left; Additional info: Possible stroke TECHNIQUE: Imaging protocol: Computed tomography of the head without contrast. Radiation optimization: All CT scans at this facility use at least one of these dose optimization techniques: automated exposure control; mA and/or kV adjustment per patient size (includes targeted exams where dose is matched to clinical indication); or iterative reconstruction. COMPARISON: MR head wo con* [id number] 05/27/2023 12:50 PM RADIATION DOSE METRICS: Total DLP (mGy-cm): 1060 FINDINGS: Brain: Normal. No hemorrhage. Unremarkable white matter. No mass effect or acute infarct. Cerebral ventricles: No ventriculomegaly. No midline shift. Paranasal sinuses: Visualized sinuses are unremarkable. No fluid levels. Mastoid air cells: Visualized mastoid air cells are well aerated. Bones: Unremarkable. No acute fracture. Soft tissues: Unremarkable. CT/CT head wo con* [id number] IMPRESSION: No acute intracranial abnormality.
--- NOTE | 2024-04-20 19:14 | W.ED.NEUROSD ---
HPI - Neuro Symptoms/Deficit General: Chief Complaint: Neuro Symptoms/Deficit Stated Complaint: stroke like symptoms, numbness left side Time Seen by Provider: 04/20/24 19:03 History of Present Illness: 48-year-old female who presents emergency room with left facial numbness and numbness going down her left side. She also has a headache. She says she feels very dizzy when she opens her eyes makes her feel dizzy. He says she does not have a history of migraines but she does have a history of similar type symptoms for which she has been following with neurology. Unknown cause. Apparently she went to urgent care and sent to the emergency room. Related Data Home Medications Medication Instructions Recorded Confirmed aspirin 81 mg tablet,delayed 81 mg PO DAILY 06/17/23 04/20/24 release Previous Rx's Medication Instructions Recorded levothyroxine 25 mcg tablet 25 mcg PO DAILY #90 tabs 12/02/23 cyanocobalamin (vitamin B-12) 1,000 mcg IM DAILY 1 month #1 mL 01/13/24 1,000 mcg/mL injection solution alprazolam 0.5 mg tablet 0.5 mg PO DAILY #30 tabs 01/28/24 promethazine 25 mg tablet See Rx Instructions .Route 01/28/24 .COMPLEX #90 tabs semaglutide 1 mg/dose (4 mg/3 mL) 1 mg (0.75 mL) SUBCUT .QW #3 mL 02/23/24 subcutaneous pen injector acyclovir 800 mg tablet 800 mg PO Q4H #35 tabs 03/19/24 cyclobenzaprine 10 mg tablet 10 mg PO TID #90 tabs 03/24/24 methylprednisolone 4 mg tablets in See Rx Instructions PO PER PKG DIR 03/24/24 a dose pack (Medrol (Tayo)) #21 ea Allergies Allergy/AdvReac Type Severity Reaction Status Date / Time No Known Allergies Allergy Verified 04/20/24 19:10 Review of Systems Narrative: Constitutional symptoms: Negative except as documented in HPI. Skin symptoms: Negative except as documented in HPI. Eye symptoms: Negative except as documented in HPI. ENMT symptoms: Negative except as documented in HPI. Respiratory symptoms: Negative except as documented in HPI. Cardiovascular symptoms: Negative except as documented in HPI. Gastrointestinal symptoms: Negative except as documented in HPI. Genitourinary symptoms: Negative except as documented in HPI. Musculoskeletal symptoms: Negative except as documented in HPI. Neurologic symptoms: Negative except as documented in HPI. Psychiatric symptoms: Negative except as documented in HPI. Endocrine symptoms: Negative except as documented in HPI. PFSH ED PFSH: Medical History Helicobacter pylori gastritis Cervical intraepithelial neoplasia grade 2 Hypothyroid B12 deficiency Visual changes GERD without esophagitis Aftercare following surgery of the genitourinary system Morbid obesity (~04/2020) Surgical History H/O hernia repair repair of hiatal hernia Hx of laparoscopy (~03/21/22) Diagnostic laparoscopy, Laparoscopic lysis of adhesions, Laparoscopic cystectomy performed by Dr. Howell at [facility] History of surgery for acute abdominal pain History of right salpingo-oophorectomy laparoscopic right ovarian cystectomy and right salpingectomy- oophorectomy performed by Dr. Howell on 06/21/2020 at [facility] History of abdominal hysterectomy 09/04/2016- Performed per Dr. Howell @ [facility] due to AUB and cancerous cells. History of delivery 1993-Performed in [place] 1995-Performed in [place] History of tubal ligation 1995- Performed in [place] History of gastric bypass Family History Sister Diabetes Grandmother Diabetes maternal Stroke maternal Hypertension maternal Breast cancer maternal Family/Other Colon cancer maternal aunt Stroke maternal aunts and maternal uncles Mother Hypertension Denies family history of Ovarian cancer Clotting disorder Heart disease Hyperlipidemia Anesthesia complication Bleeding disorder Uterine cancer Thyroid disease Social History Smoking and tobacco/nicotine status: unknown if used tobacco/nicotine Alcohol intake: former Year of sobriety/quit date alcohol: 2019 Substance/Drug Use: never Female Reproductive History: Spontaneous abortions: No Physical Exam Narrative: EXAM NARRATIVE: General: Alert, patient is very photophobic. Covering her eyes. Skin: Warm, dry. Head: Normocephalic, atraumatic. Neck: Supple, trachea midline. Eye: Extraocular movements are intact. Ears, nose, mouth and throat: mucosa moist. Cardiovascular: Regular, Normal peripheral perfusion. Respiratory: Lungs are clear to auscultation, respirations are non-labored, breath sounds are equal, Symmetrical chest wall expansion. Gastrointestinal: Soft, Nontender, Non distended Musculoskeletal: Normal ROM, no deformity. Neurological: Alert and oriented, No focal neurological deficit observed. Psychiatric: Cooperative, Course Vital Signs: Vital signs: Vital Signs Temperature 98.0 F 04/20/24 19:02 Pulse Rate 97 04/20/24 20:35 Respiratory Rate 19 H 04/20/24 20:35 Blood Pressure 100/57 04/20/24 20:35 Pulse Oximetry 100 04/20/24 20:35 Oxygen Delivery Me thod Room Air 04/20/24 20:35 MDM - Neuro Symptoms/Deficit Medical Decision Making Medical decision making: Differential diagnosis for this patient presenting with severe headache including but not limited to and based on the above HPI, review of systems and physical exam: Intracranial hemorrhage, stroke, migraine, cluster headache, infections such as influenza, covid Orders placed to evaluate differential diagnosis based on the above differential, HPI and physical exam CT head: No acute intracranial process. no intracranial hemorrhage, no evidence of infarct. no evidence of acute fracture.This was reviewed and interpreted by myself the ER physician. Lab Review: Laboratory results were reviewed and interpreted by myself the emergency room physician. Lab work is unremarkable. No leukocytosis. No anemia. No renal failure. Flu and COVID are negative. Urinalysis is normal. I reviewed the patient's medical record. Reexamination: Patient remained stable. No increased work of breathing. No altered mental status. No focal motor deficits. Patient says her symptoms are worse this time than usual. She is having pain in her teeth. Paresthesias down into her leg. She has an MRI scheduled for early April. She follows with Dr. Perea. Assessment and plan: Headache Paresthesias -Ativan and meclizine did not help her symptoms a whole lot although she is not complaining of dizziness and does not seem to be as photophobic as she was earlier. ?Treating this similar to her migraine consists of recurrent she has a headache. IV Reglan, Benadryl, Toradol, Norflex and fluids being given. ? Discharged home - Discussed plan with patient. Answered any questions. - Evaluation and treatment of this problem were appropriate in the emergency setting. Lab Data 04/20/24 19:19 04/20/24 19:[address] 04/20/24 19:06 IMPRESSION: No acute intracranial abnormality. Laboratory Results WBC 6.43 10^3/uL (3.29-11.43) 04/20/24 19:19 RBC 4.33 10^6/uL (3.85-5.65) 04/20/24 19:19 Hgb 13.40 g/dL (11.27-16.99) 04/20/24 19:19 Hct 41.3 % (36-47) 04/20/24 19:19 MCV 95.4 fl (85-98) 04/20/24 19:19 MCH 30.9 pg (27-33) 04/20/24 19:19 MCHC 32.4 g/dL (30-55) 04/20/24 19:19 RDW 12.9 % (12.1-15.1) 04/20/24 19:19 Plt Count 198 10^3/cmm (157-399) 04/20/24 19:19 MPV 9.8 fL (7.4-10.4) 04/20/24 19:19 Neut % (Auto) 55.0 % 04/20/24 19:19 Lymph % (Auto) 37.5 % 04/20/24 19:19 Dane % (Auto) 6.1 % 04/20/24 19:19 Eos % (Auto) 0.9 % 04/20/24 19:19 Baso % (Auto) 0.3 % 04/20/24 19:19 Neut # (Auto) 3.54 10^3/uL (1.8-7.7) 04/20/24 19:19 Lymph # (Auto) 2.4 10^3/uL (0.8-4.8) 04/20/24 19:19 Dane # (Auto) 0.4 10^3/uL (0.2-0.9) 04/20/24 19:19 Eos # (Auto) 0.1 10^3/uL (0.0-0.8) 04/20/24 19:19 Baso # (Auto) 0.0 10^3/uL (0.0-0.1) 04/20/24 19:19 Nucleated RBC % (auto) 0 % 04/20/24 19:19 Nucleated RBCs # 0.0 /100WBC 04/20/24 19:19 Sodium 137 mmol/L (136-145) 04/20/24 19:19 Potassium 3.5 mmol/L (3.5-5.1) 04/20/24 19:19 Chloride 102 mmol/L (98-107) 04/20/24 19:19 Carbon Dioxide 24 mmol/L (22-29) 04/20/24 19:19 Anion Gap 14.5 (5-19) 04/20/24 19:19 BUN 12 mg/dL (6-20) 04/20/24 19:19 Creatinine 0.6 mg/dL (0.5-0.9) 04/20/24 19:19 GFR Calculation 106.3 mL/min (90-130) 04/20/24 19:19 Glucose 84 mg/dL (65-115) 04/20/24 19:19 Calculated Osmolality 283 mOsm/kg (285-295) L 04/20/24 19:19 Calcium 9.2 mg/dL (8.5-10.5) 04/20/24 19:19 Total Bilirubin 0.5 mg/dL (0.15-1.2) 04/20/24 19:19 AST 20 U/L (0-32) 04/20/24 19:19 ALT 14 U/L (0-33) 04/20/24 19:19 Alkaline Phosphatase 72 U/L (35-105) 04/20/24 19:19 C-Reactive Protein 3.0 mg/L (0.0-4.9) 04/20/24 19:19 Total Protein 7.2 g/dL (6.6-8.7) 04/20/24 19:19 Albumin 4.4 g/dL (3.5-5.2) 04/20/24 19:19 Globulin 2.8 g/dL (1.3-4.6) 04/20/24 19:19 Urine Color Yellow (Yellow) 04/20/24 19:45 Urine Appearance Clear (CLEAR) 04/20/24 19:45 Urine pH 6.0 (5-7) 04/20/24 19:45 Ur Specific [place] 1.009 (1.005-1.030) 04/20/24 19:45 Urine Protein Negative (Negative) 04/20/24 19:45 Urine Glucose (UA) Negative (Normal) 04/20/24 19:45 Urine Ketones Negative (Negative) 04/20/24 19:45 Urine Blood Negative (Negative) 04/20/24 19:45 Urine Nitrate Negative (Negative) 04/20/24 19:45 Urine Bilirubin Negative (Negative) 04/20/24 19:45 Urine Urobilinogen 1.0 mg/dL (Negative) 04/20/24 19:45 Ur Leukocyte Esterase Negative (Negative) 04/20/24 19:45 Urine RBC 0-2 /hpf (0-2) 04/20/24 19:45 Urine WBC 0-5 /hpf (0-5) 04/20/24 19:45 Ur Squamous Epith Cells 0-5 /hpf (0-5) 04/20/24 19:45 Amorphous Sediment Not Reportable 04/20/24 19:45 Urine Bacteria None seen /hpf (NONE) 04/20/24 19:45 Hyaline Casts 0-4 /lpf H 04/20/24 19:45 Coronavirus (PCR) Negative (Negative) 04/20/24 19:44 Influenza A (PCR) Negative (Negative) 04/20/24 19:44 Influenza Type B (PCR) Negative (Negative) 04/20/24 19:44 RSV (PCR) Negative (Negative) 04/20/24 19:44 All radiology interpretation(s) finalized by discharge Discharge Plan Discharge Patient Disposition: Home Clinical Impression: Paresthesias, Headache Condition: Stable Prescriptions: No Action promethazine 25 mg tablet See Rx Instructions .ROUTE .COMPLEX Qty: 90 2RF Dose Instruction: TAKE 1 TABLET BY MOUTH THREE TIMES DAILY NEEDED FOR NAUSEA AND VOMITING Rx Instructions: TAKE 1 TABLET BY MOUTH THREE TIMES DAILY NEEDED FOR NAUSEA AND VOMITING alprazolam 0.5 mg tablet 0.5 mg PO DAILY Qty: 30 5RF aspirin 81 mg tablet,delayed release (DR/EC) 81 mg PO DAILY acyclovir 800 mg tablet 800 mg PO Q4H Qty: 35 0RF Rx Instructions: while awake; give 5 doses in 24 hours cyclobenzaprine 10 mg tablet 10 mg PO TID Qty: 90 5RF methylprednisolone [Medrol (Tayo)] 4 mg tablets,dose pack See Rx Instructions PO PER PKG DIR Qty: 21 0RF Rx Instructions: PO PER PKG DIR levothyroxine 25 mcg tablet 25 mcg PO DAILY Qty: 90 1RF cyanocobalamin (vitamin B-12) 1,000 mcg/mL solution 1,000 mcg IM DAILY 30 Days Qty: 1 6RF semaglutide 1 mg/dose (4 mg/3 mL) pen injector 1 mg SUBCUT .QW Qty: 3 10RF Discharge Orders: Discharge ED (Routine); Ordered 04/20/24 Ordered By: Mary Blair Referrals: Dominic Marin DO [Primary Care Provider] - Miquel Perea MD [Physician] - 1-3 days (Please call for an appointment) Discharge Diet: Usual diet Discharge Activity: Increase activity as tolerated Patient Instructions: Pain Management Activity Restrictions/Additional Instructions: Thank you for choosing [facility] for your healthcare needs today. Please realize this is an emergency room and that we are providing you with a medical screening exam and this may not be complete and all inclusive of all the testing and or work up that you may need to determine your ailment or severity of your illness. You have been screened and evaluated and felt safe for discharge. Health conditions do change or evolve sometimes and as such it is important that you follow up with your Primary Doctor to be re checked, 3-5 days is a general good time frame for follow up. 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
[2024-04-20] MEDS: meclizine 25 mg tablet 50 MG PO (19:16)
[2024-04-20] MEDS: LORazepam 2 mg/mL INJ 1 mL 1 MG IVP (19:17)
[2024-04-20 19:29] LABS: Basophils % 0.3 %; Eosinophils # 0.1 10^3/uL (0.0-0.8); Eosinophils % 0.9 %; Hematocrit 41.3 % (36-47); Lymphocytes # 2.4 10^3/uL (0.8-4.8); Lymphocytes % 37.5 %; Mean Corpuscular HGB Conc 32.4 g/dL (30-55); Mean Corpuscular Hemoglobin 30.9 pg (27-33); Mean Corpuscular Volume 95.4 fl (85-98); Mean Platelet Volume 9.8 fL (7.4-10.4); Monocytes # 0.4 10^3/uL (0.2-0.9); Monocytes % 6.1 %; Neutrophils # 3.54 10^3/uL (1.8-7.7); Nucleated Red Blood Cells % 0 %; Platelet Count 198 10^3/cmm (157-399); Red Blood Count 4.33 10^6/uL (3.85-5.65); Red Cell Distribution Width 12.9 % (12.1-15.1); White Blood Count 6.43 10^3/uL (3.29-11.43)
[2024-04-20 19:47] LABS: Alanine Aminotransferase 14 U/L (0-33); Albumin Level 4.4 g/dL (3.5-5.2); Alkaline Phosphatase 72 U/L (35-105); Anion Gap 14.5 (5-19); Aspartate Amino Transferase 20 U/L (0-32); Blood Urea Nitrogen 12 mg/dL (6-20); Calcium 9.2 mg/dL (8.5-10.5); Carbon Dioxide 24 mmol/L (22-29); Chloride 102 mmol/L (98-107); Creatinine Clr Calc Pharmacy 107.5631; Globulin 2.8 g/dL (1.3-4.6); Glomerular Filtration Rate 106.3 mL/min (90-130); Glucose 84 mg/dL (65-115); Osmolality Calculated 283 mOsm/kg (285-295); Potassium 3.5 mmol/L (3.5-5.1); Sodium 137 mmol/L (136-145); Total Bilirubin 0.5 mg/dL (0.15-1.2); Total Protein 7.2 g/dL (6.6-8.7)
[2024-04-20 20:06] LABS: Bilirubin Urine Negative (Negative); Blood Urine Negative (Negative); Glucose Urine UA Negative (Normal); Ketones Urine Negative (Negative); Leukocyte Esterase Urine Negative (Negative); Nitrate Urine Negative (Negative); Protein Urine Negative (Negative); Specific Gravity, Urine 1.009 (1.005-1.030); Urine Appearance Clear (CLEAR); Urine Color Yellow (Yellow)
[2024-04-20 20:08] LABS: Bacteria Urine None Seen /hpf; Hyaline Casts Urine 0-4 /lpf; RBC Urine 0-2 /hpf (0-2); Squamous Epithelial Cell Urine 0-5 /hpf (0-5); WBC Urine 0-5 /hpf (0-5)
[2024-04-20 20:26] LABS: Covid PCR NEGATIVE (Negative); Influenza A NEGATIVE (Negative); Influenza B NEGATIVE (Negative); Respiratory Syncytial Virus Ce NEGATIVE (Negative)
[2024-04-20] MEDS: diphenhydrAMINE 50 mg/mL SDV 1mL 25 MG IVP (20:58)
[2024-04-20] MEDS: ketorolac 30 mg/mL INJ IVP (20:58)
[2024-04-20] MEDS: metoclopramide 5 mg/mL SDV 2 mL 10 MG IVP (20:58)
[2024-04-20] MEDS: ondansetron 2 mg/ML SDV 2 mL 4 MG IVP (20:58)
[2024-04-20] MEDS: orphenadrine 30 mg/mL Inj 2 mL 60 MG IVP (20:58)
[2024-04-20] MEDS: sodium chloride 0.9% 1,000 ML 999 ML IV (20:59)
[2024-04-20 21:16] LABS: Glucose Point of Care 70 mg/dL (70-110)
== END 2024-04-20 21:59 | disposition home or self-care (01) ==
PROVIDERS: Emergency Provider Emergency Medicine; PCP Family Medicine
DX: R20.2 Paresthesia of skin (principal); R51.9 Headache, unspecified; Z79.82 Long term (current) use of aspirin; Z79.85 Long-term (current) use of injectable non-insulin antidiabetic drugs; Z11.52 Encounter for screening for COVID-19
CPT/HCPCS: 0241U; 36416; 70450; 80053; 81001; 82962; 85025; 86140; 96374; 96375; 99285; J1200; J1885; J2060; J2360; J2405; J2765; J7030; J8597

== ENCOUNTER 2024-04-30 12:47 | Outpatient (CLI) | payer MEDICAID, SELFPAY ==
--- NOTE | 2024-04-30 13:00 | MR_ITS ---
WS: [id number] MRI HEAD WITH CONTRAST TECHNIQUE: Sagittal T1, T2 axial, T2 axial FLAIR, axial susceptibility weighted imaging, axial diffus ion weighted images, and coronal T2 images were obtained. Pre and post-T1 axial and post T1 coronal i mages. ADC and FSPGR images. CLINICAL INFORMATION: R20.2 - Paresthesia of skin COMPARISON: CT 04/20/2024 and MRI 05/27/2023 FINDINGS: No evidence of restricted diffusion to suggest acute ischemia. Minimal white matter changes unchanged compared to previous. Normal posterior fossa. Normal vascular flow voids at the skull base. No extra -axial fluid collections. No evidence of mass or mass effect. Paranasal sinuses are well aerated. [place] air cells are well aerated. No hemosiderin on the susceptibility weighted images. Normal optic c hiasm and pituitary infundibulum. Temporal lobes and hippocampal formations are normal in appearance. No abnormal gadolinium enhancement. Normal dural venous sinuses. No other suspicious findings. MR/MR head wo/w con [id number] IMPRESSION: 1. No evidence of restricted diffusion to suggest acute ischemia. 2. Minimal white matter changes unchanged compared to previous. 3. No abnormal gadolinium enhancement. 4. No hemosiderin on susceptibility-weighted images. 5. No other acute findings.
[2024-04-30] MEDS: gadobenate dimeglumine 20 mL vial 13 ML IV (13:47)
== END 2024-04-30 12:48 | disposition home or self-care (01) ==
LOC: RAD 12:47
PROVIDERS: PCP Family Medicine; Visit Provider Psychiatry & Neurology Neurology
DX: R20.2 Paresthesia of skin (principal); E53.8 Deficiency of other specified B group vitamins; G51.0 Bell's palsy; F41.9 Anxiety disorder, unspecified
CPT/HCPCS: 70553; A9577

== ENCOUNTER → 2024-05-03 13:00 | Outpatient (BNVA) | payer MEDICAID, SELFPAY | PROVIDERS: PCP Family Medicine; Visit Provider Family Medicine | DX: Z13.6 Encounter for screening for cardiovascular disorders (principal); E87.6 Hypokalemia | CPT/HCPCS: 80048 ==

== ENCOUNTER → 2024-06-07 14:30 | Outpatient (BNVA) | payer MEDICAID, SELFPAY | PROVIDERS: PCP Family Medicine; Visit Provider Psychiatry & Neurology Neurology | DX: R20.2 Paresthesia of skin (principal); E53.8 Deficiency of other specified B group vitamins; G51.0 Bell's palsy; F41.9 Anxiety disorder, unspecified | CPT/HCPCS: 36415; 82607; 99212; 99213 ==

== ENCOUNTER → 2024-12-06 14:44 | Outpatient (BNVA) | payer MEDICAID, SELFPAY | PROVIDERS: PCP Family Medicine; Visit Provider Psychiatry & Neurology Neurology | DX: E53.8 Deficiency of other specified B group vitamins (principal) | CPT/HCPCS: 36415; 82607 ==

== ENCOUNTER 2024-12-21 17:06 | Emergency (ER) | payer MEDICAID, SELFPAY ==
[2024-12-21 17:27] VITALS: BP 133/87; PULSE 87; RESP 17; TEMP 36.8; O2SAT 100; BMI 22.6
--- NOTE | 2024-12-21 17:40 | CTR_ITS ---
PROCEDURE INFORMATION: Exam: CTA Abdomen With Contrast Exam date and time: 12/21/2024 7:11 PM Age: 49 years old Clinical indication: Abdominal pain and other: Lbp; Generalized; Prior surgery; Surgery date: 6+ months; Surgery type: Gb, gastric; Additional info: Abd pain TECHNIQUE: Imaging protocol: Computed tomographic angiography of the abdomen with contrast. Exam focused on the arteries. 3D rendering (Not supervised by radiologist): MIP and/or 3D reconstructed images were created by the technologist. Radiation optimization: All CT scans at this facility use at least one of these dose optimization techniques: automated exposure control; mA and/or kV adjustment per patient size (includes targeted exams where dose is matched to clinical indication); or iterative reconstruction. Contrast material: OMNIPAQUE 350; Contrast volume: 100 ml; Contrast route: INTRAVENOUS (IV); COMPARISON: CT abdomen pelvis wo [facility] [id number] 02/17/2022 8:57 PM RADIATION DOSE METRICS: Total DLP (mGy-cm): 230.01 FINDINGS: Aorta: No aortic aneurysm. No aortic dissection. Celiac trunk and mesenteric arteries: No occlusion or significant stenosis. Renal arteries: No occlusion or significant stenosis. Liver: Normal. No mass. Gallbladder and biliary ducts: The gallbladder has been resected. Pancreas: Normal. No ductal dilation. Spleen: Normal. No splenomegaly. Adrenal glands: Normal. No mass. Kidneys: Normal. No hydronephrosis. Stomach and bowel: There is evidence of previous gastric surgery. Lymph nodes: Unremarkable. No enlarged lymph nodes. Intraperitoneal space: Unremarkable. No free air. No significant fluid collection. Bones/joints: Unremarkable. No acute fracture. Soft tissues: Unremarkable. CT/CT angio abdomen [id number] IMPRESSION: No acute findings.
--- NOTE | 2024-12-21 18:31 | ED_ITS ---
HPI - Abdominal Pain 2 General: Chief Complaint: Abdominal Pain Stated Complaint: abd pain / abn lab (Sent by [facility]) Time Seen by Provider: 12/21/24 17:40 History of Present Illness: 49-year-old female with a history of anx iety and hypothyroidism and a history of a gastric sleeve who presents emergency room with abdominal pain. Says she has been feeling fatigued for couple of days now and when she went to lay down flat today she had a pain in her suprapubic lower abdominal central area. She went to urgent care and was sent to the emergency room. She said no nausea or vomiting. No dysuria. Just slight pain in her suprapubic area. Related Data Previous Rx's ?Medication ?Instructions ?Recorded semaglutide 1 mg/dose (4 mg/3 mL) 1 mg (0.75 mL) SUBCU T .QW #3 mL 02/23/24 subcutaneous pen injector alprazolam 0.5 mg tablet 0.5 mg PO DAILY #30 tabs promethazine 25 mg tablet See Rx Instructions .Route 0 11/01/24 .COMPLEX #90 tabs levothyroxine 25 mcg tablet See Rx Instructions .Route 11/02/24 .COMPLEX #90 tabs cyanocobalamin (vitamin B-12) 1,000 mcg IM Q30D 1 hector h #1 mL 12/06/24 1,000 mcg/mL injection solution cephalexin 500 mg capsule 500 mg PO BID 5 days #10 cap s 12/21/24 Allergies Allergy/AdvReac Type Severity Reaction Status Date / Time No Known Allergies Allergy Verified 12/21/24 16:35 Review of Systems 2 Narrative: Constitutional symptoms: Negative except as documented in HPI. Skin symptoms: Negative except as documented in HPI. Eye symptoms: Negative except as documented in HPI. ENMT symptoms: Negative except as documented in HPI. Respiratory symptoms: Negative except as documented in HPI. Cardiovascular symptoms: Negative except as documented in HPI. Gastrointestinal symptoms: Negative except as documented in HPI. Genitourinary symptoms: Negative except as documented in HPI. Musculoskeletal symptoms: Negative except as documented in HPI. Neurologic symptoms: Negative except as documented in HPI. Psychiatric symptoms: Negative except as documented in HPI. Endocrine symptoms: Negative except as documented in HPI. PFSH ED 2 PFSH: Medical History Helicobacter pylori gastritis Cervical intraepithelial neoplasia grade 2 Hypothyroid B12 deficiency Visual changes GERD without esophagitis Aftercare following surgery of the genitourinary system Morbid obesity (~04/2020) Surgical History H/O hernia repair repair of hiatal hernia Hx of laparoscopy (~03/21/22) Diagnostic laparoscopy, Laparoscopic lysis of adhesions, Laparoscopic cystectomy performed by Dr. Howell at [facility] History of surgery for acute abdominal pain History of right salpingo-oophorectomy laparoscopic right ovarian cystectomy and right salpingectomy- oophorectomy performed by Dr. Howell on 06/21/2020 at [facility] History of abdominal hysterectomy 09/04/2016- Performed per Dr. Howell @ [facility] due to AUB and cancerous cells. History of [place] 1993[place] of tubal ligation 1995- [place] History of gastric bypass Family History Sister Diabetes Grandmother Diabetes maternal Stroke maternal Hypertension maternal Breast cancer maternal Family/Other Colon cancer maternal aunt Stroke maternal aunts and maternal uncles Mother Hypertension Denies family history of Ovarian cancer Clotting disorder Heart disease Hyperlipidemia Anesthesia complication Bleeding disorder Uterine cancer Thyroid disease Social History Smoking and tobacco/nicotine status: never used tobacco/nicotine Alcohol intake: former Year of sobriety/quit date alcohol: 2019 Substance/Drug Use: never Female Reproductive History: Spontaneous abortions: No Physical Exam 2 Narrative: EXAM NARRATIVE: General: Alert, no acute distress. Skin: Warm, dry. Head: Normocephalic, atraumatic. Neck: Supple, trachea midline. Eye: Extraocular movements are intact. Ears, nose, mouth and throat: mucosa moist. Cardiovascular: Regular, Normal peripheral perfusion. Respiratory: Lungs are clear to auscultation, respirations are non-labored, breath sounds are equal, Symmetrical chest wall expansion. Gastrointestinal: Soft, mild tenderness between umbilicus and suprapubic area, Non distended Musculoskeletal: Normal ROM, no deformity. Neurological: Alert and oriented, No focal neurological deficit observed. Psychiatric: Cooperative, appropriate mood & affect. Course 2 Vital Signs: Vital signs: Vital Signs Temperature 98.2 F 12/21/24 17:27 Pulse Rate 87 12/21/24 17:27 Respiratory Rate 17 12/21/24 17:27 Blood Pressure 133/87 12/21/24 17:27 Pulse Oximetry 100 12/21/24 17:27 Oxygen Delivery Me thod Room Air 12/21/24 17:27 MDM - Abdominal Pain Medical Decision Making Lab Review: Laboratory results were reviewed and interpreted by myself the emergency room physician. No leukocytosis. No anemia. No renal failure. Urinalysis is positive for bacteria and a few whites. Possibly an early urinary tract infection. Also specific gravity is quite concentrated which would indicate some dehydration. I reviewed the patient's medical record. Reexamination: Patient remained stable. No increased work of breathing. No altered mental status. No focal motor deficits. Assessment and plan: Abdominal pain Urinary tract infection - Discharged home - Discussed plan with patient. Answered any questions. - Evaluation and treatment of this problem were appropriate in the emergency setting. Lab Data 12/21/24 18:36 12/21/24 18:36 Labs/Radiology: Radiology Impressions Abdomen CTA 12/21/24 17:40 IMPRESSION: No acute findings. Laboratory Results WBC 5.58 10^3/uL (3.29-11.43) 12/21/24 18:36 RBC 4.12 10^6/uL (3.85-5.65) 12/21/24 18:36 Hgb 12.60 g/dL (11.27-16.99) 12/21/24 18:36 Hct 38.3 % (36-47) 12/21/24 18:36 MCV 93.0 fl (85-98) 12/21/24 18:36 MCH 30.6 pg (27-33) 12/21/24 18:36 MCHC 32.9 g/dL (30-55) 12/21/24 18:36 RDW 12.9 % (12.1-15.1) 12/21/24 18:36 Plt Count 172 10^3/cmm (157-399) 12/21/24 18:36 MPV 10.0 fL (7.4-10.4) 12/21/24 18:36 Neut % (Auto) 59.6 % 12/21/24 18:36 Lymph % (Auto) 32.3 % 12/21/24 18:36 Hooker % (Auto) 6.6 % 12/21/24 18:36 Eos % (Auto) 0.7 % 12/21/24 18:36 Baso % (Auto) 0.4 % 12/21/24 18:36 Neut # (Auto) 3.33 10^3/uL (1.8-7.7) 12/21/24 18:36 Lymph # (Auto) 1.8 10^3/uL (0.8-4.8) 12/21/24 18:36 Hooker # (Auto) 0.4 10^3/uL (0.2-0.9) 12/21/24 18:36 Eos # (Auto) 0.0 10^3/uL (0.0-0.8) 12/21/24 18:36 Baso # (Auto) 0.0 10^3/uL (0.0-0.1) 12/21/24 18:36 Nucleated RBC % (auto) 0 % 12/21/24 18:36 Nucleated RBCs # 0.0 /100WBC 12/21/24 18:36 D-Dimer 0.35 ug/mLFEU (0-0.59) 12/21/24 18:36 Sodium 141 mmol/L (136-145) 12/21/24 18:36 Potassium 4.3 mmol/L (3.5-5.1) 12/21/24 18:36 Chloride 105 mmol/L (98-107) 12/21/24 18:36 Carbon Dioxide 24 mmol/L (22-29) 12/21/24 18:36 Anion Gap 16.3 (5-19) 12/21/24 18:36 BUN 14 mg/dL (6-20) 12/21/24 18:36 Creatinine 0.6 mg/dL (0.5-0.9) 12/21/24 18:36 GFR Calculation 105.8 mL/min (90-130) 12/21/24 18:36 Glucose 78 mg/dL (65-115) 12/21/24 18:36 Calculated Osmolality 291 mOsm/kg (285-295) 12/21/24 18:36 Lactic Acid 0.7 mmol/L (0.5-2.2) 12/21/24 18:36 Calcium 8.9 mg/dL (8.5-10.5) 12/21/24 18:36 Total Bilirubin 0.4 mg/dL (0.15-1.2) 12/21/24 18:36 AST 16 U/L (0-32) 12/21/24 18:36 ALT 10 U/L (0-33) 12/21/24 18:36 Alkaline Phosphatase 58 U/L (35-105) 12/21/24 18:36 C-Reactive Protein 3.0 mg/L (0.0-4.9) 12/21/24 18:36 Total Protein 6.3 g/dL (6.6-8.7) L 12/21/24 18:36 Albumin 4.0 g/dL (3.5-5.2) 12/21/24 18:36 Globulin 2.3 g/dL (1.3-4.6) 12/21/24 18:36 Lipase 40 U/L (13-60) 12/21/24 18:36 Urine Color Yellow (Yellow) 12/21/24 20: Urine Appearance Clear (CLEAR) 12/21/24 20: Urine pH 6.5 (5-7) 12/21/24 20:25 Ur Specific Hudson 1.069 (1.005-1.030) H 12/21/24 20:25 Urine Protein Negative (Negative) 12/21/24 20: Urine Glucose (UA) Negative (Normal) 12/21/24 20: Urine Ketones 1+ (Negative) H 12/21/24 20: Urine Blood Negative (Negative) 12/21/24 20: Urine Nitrate Negative (Negative) 12/21/24 20: Urine Bilirubin Negative (Negative) 12/21/24 20: Urine Urobilinogen 1.0 mg/dL (Negative) 12/21/24 20:25 Ur Leukocyte Esterase Negative (Negative) 12/21/24 20:25 Urine RBC 0-2 /hpf (0-2) 12/21/24 20:25 Urine WBC 0-5 /hpf (0-5) 12/21/24 20:25 Ur Squamous Epith Cells 0-5 /hpf (0-5) 12/21/24 20:25 Amorphous Sediment Not Reportable 12/21/24 20:25 Urine Bacteria 1+ /hpf (NONE) H 12/21/24 20:25 Hyaline Casts 0-4 /lpf H 12/21/24 20:25 All radiology interpretation(s) finalized by discharge Discharge Plan Discharge Patient Disposition: Home Clinical Impression: Abdominal pain Condition: Stable Prescriptions: New cephalexin 500 mg capsule 500 mg PO BID 5 Days Qty: 10 0RF No Action cyanocobalamin (vitamin B-12) 1,000 mcg/mL solution 1,000 mcg IM Q30D 30 Days Qty: 1 6RF semaglutide 1 mg/dose (4 mg/3 mL) pen injector 1 mg SUBCUT .QW Qty: 3 10RF alprazolam 0.5 mg tablet 0.5 mg PO DAILY Qty: 30 5RF promethazine 25 mg tablet See Rx Instructions .ROUTE .COMPLEX Qty: 90 2RF Dose Instruction: TAKE 1 TABLET BY MOUTH THREE TIMES DAILY NEEDED FOR NAUSEA AND VOMITING Rx Instructions: TAKE 1 TABLET BY MOUTH THREE TIMES DAILY NEEDED FOR NAUSEA AND VOMITING levothyroxine 25 mcg tablet See Rx Instructions .ROUTE .COMPLEX Qty: 90 1RF Dose Instruction: TAKE 1 TABLET BY MOUTH EVERY DAY Rx Instructions: TAKE 1 TABLET BY MOUTH EVERY DAY Discharge Orders: Discharge ED (Routine); Ordered 12/21/24 Ordered By: Mary Blair Referrals: Dominic Marin DO [Primary Care Provider, Family Practice] Discharge Diet: Usual diet Discharge Activity: Resume usual activity Patient Instructions: Abdominal Pain (ED), Opioid Safety, Pain Management Activity Restrictions/Additional Instructions: Thank you for choosing [facility] for your healthcare needs today. You have been screened and evaluated and felt safe for discharge. Health conditions do change or evolve sometimes and as such it is important that you follow up with your Primary Doctor to be re checked, 3-5 days is a general good time frame for follow up. You are always welcome to return to the ED for re assessment if your symptoms are worsening or you have new concerns Print Language: Kiswahili Coding Level of Care Code ED [employer] for Lucille De León
[2024-12-21 18:42] LABS: Basophils % 0.4 %; Eosinophils % 0.7 %; Hematocrit 38.3 % (36-47); Lymphocytes # 1.8 10^3/uL (0.8-4.8); Lymphocytes % 32.3 %; Mean Corpuscular HGB Conc 32.9 g/dL (30-55); Mean Corpuscular Hemoglobin 30.6 pg (27-33); Monocytes # 0.4 10^3/uL (0.2-0.9); Monocytes % 6.6 %; Neutrophils # 3.33 10^3/uL (1.8-7.7); Neutrophils % 59.6 %; Nucleated Red Blood Cells % 0 %; Platelet Count 172 10^3/cmm (157-399); Red Blood Count 4.12 10^6/uL (3.85-5.65); Red Cell Distribution Width 12.9 % (12.1-15.1); White Blood Count 5.58 10^3/uL (3.29-11.43)
[2024-12-21 18:55] LABS: D Dimer 0.35 ug/mLFEU (0-0.59)
[2024-12-21 18:59] LABS: Alanine Aminotransferase 10 U/L (0-33); Alkaline Phosphatase 58 U/L (35-105); Anion Gap 16.3 (5-19); Aspartate Amino Transferase 16 U/L (0-32); Blood Urea Nitrogen 14 mg/dL (6-20); Calcium 8.9 mg/dL (8.5-10.5); Carbon Dioxide 24 mmol/L (22-29); Chloride 105 mmol/L (98-107); Creatinine Clr Calc Pharmacy 107.9875; Globulin 2.3 g/dL (1.3-4.6); Glomerular Filtration Rate 105.8 mL/min (90-130); Glucose 78 mg/dL (65-115); Lipase 40 U/L (13-60); Osmolality Calculated 291 mOsm/kg (285-295); Potassium 4.3 mmol/L (3.5-5.1); Sodium 141 mmol/L (136-145); Total Bilirubin 0.4 mg/dL (0.15-1.2); Total Protein 6.3 g/dL (6.6-8.7)
[2024-12-21 19:00] LABS: Lactic Sepsis W/Reflex 0.7 mmol/L (0.5-2.2)
[2024-12-21] MEDS: iohexol 350 mg/mL 500 mL Btl (per mL) IV (19:13)
[2024-12-21] MEDS: prochlorperazine 10 mg/2 mL Inj IVP (20:29)
[2024-12-21] MEDS: diphenhydrAMINE 50 mg/mL SDV 1mL 25 MG IVP (20:29)
[2024-12-21 20:35] LABS: Bilirubin Urine Negative (Negative); Blood Urine Negative (Negative); Glucose Urine UA Negative (Normal); Ketones Urine 1+ (Negative); Leukocyte Esterase Urine Negative (Negative); Nitrate Urine Negative (Negative); Protein Urine Negative (Negative); Urine Appearance Clear (CLEAR); Urine Color Yellow (Yellow); pH Urine 6.5 (5-7)
[2024-12-21 20:39] LABS: Bacteria Urine 1+ /hpf; Hyaline Casts Urine 0-4 /lpf; RBC Urine 0-2 /hpf (0-2); Squamous Epithelial Cell Urine 0-5 /hpf (0-5); WBC Urine 0-5 /hpf (0-5)
[2024-12-21 20:54] LABS: Specific Gravity, Urine 1.069 (1.005-1.030)
[2024-12-21 21:24] VITALS: BP 112/74; PULSE 83; RESP 17; O2SAT 98
== END 2024-12-21 21:26 | disposition home or self-care (01) ==
PROVIDERS: Emergency Medicine; Emergency Provider Emergency Medicine; PCP Family Medicine
DX: R10.30 Lower abdominal pain, unspecified (principal); F41.9 Anxiety disorder, unspecified; E03.9 Hypothyroidism, unspecified; Z79.899 Other long term (current) drug therapy; Z79.890 Hormone replacement therapy
CPT/HCPCS: 36415; 74175; 80053; 81001; 83605; 83690; 85025; 85378; 86140; 96374; 96375; 99285; J0780; J1200

== ENCOUNTER 2025-05-12 09:38 | Outpatient (CLI) | payer MEDICAID, SELFPAY ==
--- NOTE | 2025-05-12 | MM_ITS ---
WS: [id number] BILATERAL SCREENING DIGITAL BREAST MAMMOGRAPHY WITH MOE DISPLACEMENT VIEWS. CAD PERFORMED. HISTORY: ANNUAL SCREENING COMPARISON: 06/16/2023, 05/02/2022 Bilateral craniocaudal and mediolateral oblique views are performed with tomosynthesis and SM. Moe displacement views in CC and MLO projection also performed. Breasts composition: The breasts are heterogeneously dense, which may obscure small masses. Retropectoral implants are intact. Benign calcifications in each breast. There is a small lymph node in the lateral RIGHT breast. No areas of distortion. No suspicious grouping of calcifications. New benign-appearing calcifications in the upper outer RIGHT breast. MM/MM scr BI tomosynthesis [id number] IMPRESSION: BI-RADS: 2 - Benign FOLLOW-UP: 1 Year Follow-up
== END 2025-05-12 09:39 | disposition home or self-care (01) ==
LOC: RAD 09:39
PROVIDERS: PCP Family Medicine; Visit Provider Family Medicine
DX: Z12.31 Encounter for screening mammogram for malignant neoplasm of breast (principal); R92.333 Mammographic heterogeneous density, bilateral breasts; R92.1 Mammographic calcification found on diagnostic imaging of breast; N63.11 Unspecified lump in the right breast, upper outer quadrant
CPT/HCPCS: 77063; 77067

== ENCOUNTER → 2025-07-06 18:11 | Outpatient (BNVA) | payer MEDICAID, SELFPAY | PROVIDERS: PCP Family Medicine; Visit Provider Nurse Practitioner | DX: J02.9 Acute pharyngitis, unspecified (principal) | CPT/HCPCS: 87880 ==